=== PATIENT | female | born 1940 | race Caucasian/White ===

== ENCOUNTER 2017-09-05 12:26 | Inpatient (IN) | payer MEDICARE ==
[~2017-09-05] VITALS: Ht 172.7 cm; Wt 72.1 kg
--- NOTE | ~2017-09-05 | EKG ---
[place], [place] ELECTROCARDIOGRAM REPORT NAME: NATANAEL DESAI UNIT #: [id number] ROOM: 427 DOCTOR: RICHARD BARRAGAN MD,RICARDO BIRTHDATE: [birth year] DOS: 09/08/2017 Electrocardiogram done on 09/08/2017, at 10:17 a.m. Sinus tachycardia noted, heart rate 101 beats per minute with a sinus arrhythmia was also noted. Otherwise, the electrocardiogram was noted as normal. RICARDO RAMOS MD CM:EKGRPT:ELECTROCARDIOGRAM REPORT [id number] 1500 RICARDO BARRAGAN MD
--- NOTE | ~2017-09-05 | PR ---
[place], [place] PROGRESS NOTE NAME: NATANAEL DESAI UNIT #: [id number] ROOM: 427 DOCTOR: RICHARD BARRAGAN MD,RICARDO BIRTHDATE: [birth year] DOS: 09/10/2017 SUBJECTIVE: She was noted comfortable at this time. Wheezing were noted decreased. Denies symptoms of chest pain. Coughing has been noted decreased. There were no symptoms of chest pain or any abdominal pain. Bronchoscopy completed yesterday successfully as well. The patient was started on Solu-Medrol yesterday as well because of the acute exacerbation of bronchial asthma. She denies symptoms of hemoptysis. There were symptoms of chest pain. There were symptoms or headache. Denies any symptoms of dizziness. The joint pain from rheumatoid arthritis was noted better with use of the corticosteroids. Remaining systems were reviewed. They were noted all negative. OBJECTIVE: VITAL SIGNS: Showed normal temperature, respiratory rate 18, heart rate 78, blood pressure 132/79. The pulse oxygen saturation on room air was 93% saturation. HEAD, EARS, EYES, NOSE AND THROAT: Examination shows no acute change. NECK: Supple. CARDIOVASCULAR: S1, S2 is audible. LUNGS: The patient was noted without any crackles. The wheezing was noted decreased. ABDOMEN: Soft, nontender. EXTREMITIES: The patient was noted without any acute edema. CENTRAL NERVOUS SYSTEM: The patient noted nonfocal. VISIBLE SKIN: No lesions or rashes. LABORATORY DATA: Culture of the bronchial washing showed clear with normal xochitl. The Gram stain, moderate white blood cell, few gram-positive cocci in pairs and clusters. Sputum culture. The patient noted normal xochitl, final results. Urine strep antigen were noted negative. Respiratory viral panel was noted as negative. IMPRESSION: 1. The patient with acute streptococcal pneumonia. Large consolidation in the right upper lobe. 2. Associated pleural fluid, which were noted small on the right side related to current acute pneumonia. 3. Acute exacerbation of chronic obstructive pulmonary disease. 4. Rheumatoid arthritis and other medical problems. PLAN OF TREATMENT: Continuation of the current therapy at this time except steroids will be decreased to 40 mg daily. Repeat chest x-ray in the morning to assess the progression of pneumonia and pleural fluid. Continue bronchodilator treatment therapy, plan of management and care plan. Usual care. Additional treatment continue to be made for the patient based on progression of the illness. [place], [place] PROGRESS NOTE NAME: NATANAEL DESAI UNIT #: [id number] ROOM: 427 DOCTOR: RICARDO CONRAD MD BIRTHDATE: [birth year] RICARDO RAMOS MD CM:PNTRANS 99 RICARDO BARRAGAN MD 09/10/171958 interface
--- NOTE | ~2017-09-05 | CON ---
[place], [place] REPORT OF CONSULTATION NAME: NATANAEL DESAI UNIT #: [id number] ROOM: 427 DOCTOR: GIGI BARRAZA DPM BIRTHDATE: [birth year] DOS: 09/08/2017 HISTORY OF PRESENT ILLNESS: The patient presents as a 77-year-old female who has had chief complaint of ulcers on the first right toe and outside of the right ankle. PAST MEDICAL HISTORY: Benign positional vertigo, diverticulitis, history of concussion, history of fall, history of shingles, hypothyroid, mitral valve prolapse, monoclonal gammopathy, multiple myeloma, ostarthritis, atrial fibrillation, rheumatoid arthritis, sprain of right ankle. PAST SURGICAL HISTORY: Rotator cuff surgery, hysterectomy, radiofrequency ablation procedure for cardiac arrhythmia, cataract surgery. SOCIAL HISTORY: Denies smoking or illicit drug use. ALLERGIES: Denies. PHYSICAL EXAMINATION: EXTREMITIES: Lower extremity examination: Pedal pulses diminished bilateral. MUSCULOSKELETAL: Within normal limits. There are superficial ulcerations noted to the dorsal medial, right hallux and lateral malleolus, right ankle. They are partial thickness. There are no signs of purulent drainage or foul odor. No signs of drainage or infection. ASSESSMENT: History of peripheral vascular disease; ulcerations, first right toe, lateral right ankle. PLAN: Evaluation and management. Ordered Bactroban and dressing to be applied daily. We will continue to monitor the patient for followup. If she is still in house, I will recheck her on as the ulcerations are stable. GIGI BARRAZA DPM CM:CONSTR:REPORT OF CONSULTATION 1248 09/08/17 1940 interface
--- NOTE | ~2017-09-05 | PR ---
[place], [place] PROGRESS NOTE NAME: NATANAEL DESAI UNIT #: [id number] ROOM: 427 DOCTOR: RICARDO CONRAD MD BIRTHDATE: [birth year] DOS: 09/12/2017 SUBJECTIVE: She has been noted comfortable at this time with continued reduction and improvement and resolution of acute symptoms noted. There was no coughing or chest pain. Denies symptoms of abdominal pain. OBJECTIVE: VITAL SIGNS: For the patient this morning, normal temperature, respiratory rate 18, heart rate 98, blood pressure 132/71. Pulse ox saturation on room air 96% saturation. HEENT: Shows no acute change. NECK: Supple. CARDIOVASCULAR: S1, S2 audible. LUNGS: The patient was noted without any wheezing or crackles. Decreased breath sounds noted on the right side mildly. ABDOMEN: Soft, nontender. Bowel sounds present. EXTREMITIES: Without any acute edema. LABORATORY DATA: No new labs were done today. Acid fast bacillus bronchial washing noted negative with pending culture results. Ultrasound of the chest for the patient performed, the right side with possibility of thoracentesis, noted very small pleural fluid at this time, which would not be noted safe for thoracentesis. IMPRESSION: 1. The patient with acute pneumonia, consider for streptococcal pneumonia with associated pleural fluid that has been improving. 2. Resolving acute exacerbation of bronchial asthma as well. PLAN OF MANAGEMENT: The patient would be considered for possible home discharge on oral antibiotics and tapering dose of prednisone. Outpatient followup is suggested post-discharge in a couple of weeks to reassess in the office with a followup chest x-ray. In case of any increased respiratory symptoms such as shortness of breath, the patient was advised to contact my office for that. [place], [place] PROGRESS NOTE NAME: NATANAEL DESAI UNIT #: [id number] ROOM: 427 DOCTOR: RICARDO CONRAD MD BIRTHDATE: [birth year] RICARDO RAMOS MD CM:PNTRANS [id number] RICARDO BARRAGAN MD 09/13/17 0042 interface
--- NOTE | ~2017-09-05 | CON ---
[place], [place] REPORT OF CONSULTATION NAME: NATANAEL DESAI UNIT #: [id number] ROOM: 427 DOCTOR: KRISTINE POSEY MD BIRTHDATE: [birth year] DOS: 09/11/2017 HISTORY OF PRESENT ILLNESS: The patient is a pleasant 77-year-old woman initially admitted because of worsening productive cough for the past week, bringing out thick green sputum as well as runny nose and Dr. Hernandez told that both lungs were clear at the time, but however, she started to have running fever with temperature of 101.5. Again, she was admitted for further evaluation. She was also found to have decreased reduction in respiratory symptoms. Further workup revealed that she has got extensive infiltration in the right upper lung without any obvious endobronchial lesion. There was also noted ____ lymphadenopathy was noted as well as pleural fluid, large on the right and small on the left side. She underwent bronchoscopy with Dr. Rivas on 08/30/2017, results are pending. She had a CT of the chest done, which showed a solitary right lobe thyroid nodule 2.8 x 2.3 cm as well as additional solid nodule in the left lobe thyroid gland as well as moderate right-sided pleural effusion. She also has a history of multiple myeloma and consulted for further evaluation and management. PAST MEDICAL HISTORY: Significant for benign positional vertigo, diverticulosis, history of concussion fall, shingles, hypothyroid, mitral valve prolapse, multiple myeloma, osteoarthritis, paroxysmal atrial fibrillation and rheumatoid arthritis. PAST SURGICAL HISTORY: Shoulder rotator cuff surgery, history of hysterectomy, history of radiofrequency ablation procedure for cardiac arrhythmia, and history of cardiac surgery. SOCIAL HISTORY: No smoking, drinking, or drug abuse. ALLERGIES: No allergies. MEDICATIONS: Albuterol, apixaban, vitamin D, diltiazem, famotidine, folic acid, furosemide, Plaquenil, leflunomide, levothyroxine, methotrexate, potassium chloride, prednisone, and sotalol. REVIEW OF SYSTEMS: CONSTITUTIONAL: No chills. No fatigue. No fever. No loss of appetite. No night sweats. No weakness. No weight loss. HEENT: No trouble swallowing. No loss of smell. No loss of hearing. No double vision. No pain. No discharge. ENT AND RESPIRATORY: No wheeze. No sore throat. No change in voice. No hearing loss. No nose bleed. No cough. No trouble breathing through nose. No shortness of breath. No coughing up blood. No epistaxis. CARDIOVASCULAR: No chest pain. No dizziness. No irregular heartbeat. No leg edema. No pain in legs while walking. No palpitations. No shortness of breath. DERMATOLOGIC: No acne. No hives. No laceration. No mole. No rash. ENDOCRINE: No cold intolerance. No diabetes. No fatigue. No hot flashes. No polydipsia. No polyuria. No urinating frequently. No weight loss. HEMATOLOGIC AND LYMPH: No fatigue. No easy bruising. [place], [place] REPORT OF CONSULTATION NAME: NATANAEL DESAI UNIT #: [id number] ROOM: [facility] DOCTOR: KRISTINE POSEY MD BIRTHDATE: [birth year] GASTROENTEROLOGIC: No change in bowel habits. No indigestion. No frequent bloating. No vomiting blood. No abdominal cramping. No nausea. No heartburn. No vomiting. No abdominal pain. No dysphagia. No diarrhea. No constipation. No blood in stool. FEMALE REPRODUCTIVE: No vaginal itching. No difficulty urinating. No heavy periods. No dyspareunia. No sexually active. No dysmenorrhea. No pelvic pain. No breast pain. No nipple discharge. No abnormal vaginal discharge. No hot flashes. MUSCULOSKELETAL: No back pain. No muscle pain or weakness. No neck pain. No tingling/numbness. No swelling/bruising. No osteoporosis treatment. OPTHALMOLOGIC: No double vision. No diminished vision. No loss of vision. UROLOGIC: No dysuria. No frequent nighttime urination. No irregular periods. No pain with urination. No difficulty urinating. No blood in urine. No frequent urination. No urinary incontinence. NEUROLOGIC: No loss of sensation in specific body area. No vertigo. No burning pain in feet. No trouble with balance. No trouble with coordination. No loss of consciousness. No loss of feeling/power. No confusion. No headache. No tingling/numbness. PSYCHOLOGIC: No tinnitus. No headaches. No shortness of breath. No weight decrease. No nausea. No vomiting. No abdominal discomfort. No constipation. No diarrhea. No depression. No anxiety. PHYSICAL EXAMINATION: GENERAL: Pleasant woman, in no apparent distress. VITAL SIGNS: Stable. She is afebrile. HEENT: Oral mucosa appears intact. The external ears are normal in appearance. Nares are patent without lesions, exudates, erythema, or inflammation. Tongue is symmetrical. Uvula is midline. NECK AND THYROID: Neck supple without palpable masses. Trachea is midline. No thyromegaly. No carotid bruit or JVD. BREASTS: Normal. Nipples unremarkable. No drainage. No lumps felt on either side. HEART: Normal S1, S2, without significant murmur, rub, or gallop. LUNGS: Clear to auscultation and percussion with good air entry bilaterally. The patient is breathing easily without the use of accessory muscles. Diaphragmatic excursions are intact. ABDOMEN: No costovertebral angle tenderness. Soft. No organomegaly or masses. Nontender. No hernias present. Liver and spleen are not palpable. LYMPHATIC: No adenopathy noted in the cervical, supraclavicular, axillary, or inguinal regions. NEUROLGIC: Nonfocal. Oriented to person, place, and time. MENTAL STATUS: Appropriate for mood and affect. PERIPHERAL PULSES: No varicosities. Femoral and pedal pulses are palpable. EXTREMITIES: Without cyanosis, clubbing, or edema. No gross anomalies. LABORATORY DATA: White count of 10.9, hemoglobin of 11.0, hematocrit 33.1, platelet count of 307. Chemistries: Glucose of 199, BUN of 18, EGFR more than 60, sodium 138, potassium 3.7, chloride 106, bicarbonate 28, total protein 6.3, SGOT 12, SGPT 16, alkaline phosphatase 68. [place], [place] REPORT OF CONSULTATION NAME: NATANAEL DESAI UNIT #: [id number] ROOM: 427 DOCTOR: KRISTINE POSEY MD BIRTHDATE: [birth year] RADIOLOGY: CT of the chest done on 09/08/2017 showed a right upper lobe airspace consolidation with the air bronchograms, mild atelectasis in the right middle lobe and inferior lingula, heterogeneous thyroid nodule, right larger than the left up to 2.8 cm x 2.3 cm, moderate right pleural effusion, moderate size hiatal hernia. ASSESSMENT: 1. Large pleural fluid. 2. Consolidation. 3. Possible sepsis. 4. Pneumonia. 5. Leukocytosis, reactive. 6. Multiple myeloma. 7. Thyroid nodes. PLAN: We will get ultrasound of the thyroid as well as get record from where she was diagnosed with multiple myeloma. In addition, wait for the bronchoscopy reports to come back. She may also need thoracentesis if the pleural fluid is large. Depending on the above, further intervention. I had detailed discussion with the patient about it, seemed to understand. Ample time was given to the patient to ask me questions. We will follow. Thanks for consulting and letting me participate in the care of this interesting patient. KRISTINE POSEY MD CM:CONSTR:REPORT OF CONSULTATION 1523 09/12/17 0116 interface
--- NOTE | ~2017-09-05 | PR ---
[place], [place] PROGRESS NOTE [id number] UN[facility] #: [id number] ROOM: 427 DOCTOR: RICHARD BARRAGAN MD,RICARDO BIRTHDATE: [birth year] DOS: 09/11/2017 SUBJECTIVE: The patient was noted comfortable at this time, resting in the bed. Bronchoscopy completed yesterday without any difficulty. Denies symptoms of chest pain. She was continued on Solu-Medrol. The dose was decreased to 40 mg daily yesterday as well. Coughing has been improving with reduction of the sputum expectoration. There were no symptoms of chest pain. She denies any joint pain. Denies symptoms of nausea, vomiting, diarrhea, and headache. Other systems were reviewed. The patient, they were noted all negative. OBJECTIVE: VITAL SIGNS: For the patient which were recorded, the patient showed the temperature noted as normal, respiratory rate 18, heart rate 93, blood pressure 140/78 and 114/67. The pulse oxygen saturation on room air is 97% saturation. HEENT: No acute change. NECK: Supple. CARDIOVASCULAR: S1, S2 is audible. LUNGS: Noted with decreased breath sounds in the lower portion of the lungs for this patient on the right side. There were no crackles. Wheezing was noted, minimal bilaterally. ABDOMEN: Flat, soft, nontender. EXTREMITIES: Without any edema. MUSCULOSKELETAL: Without any acute deformities. SKIN: No lesions or rashes. GENITOURINARY: Cranial nerves are intact. LABORATORY DATA: Today reviewed. The CBC of this morning, WBC count 10.9, hemoglobin 11, hematocrit 33.1, platelet count was normal at 87% segmented neutrophils. Blood culture 27, no bacterial growth. Final results reported by the laboratory, the bronchial washing culture noted as normal xochitl. The chest x-ray done this morning, the patient was noted partial reduction of the infiltration of the right upper lung for this patient. Pleural fluid was noted to be somewhat increased as compared with the previous chest x-ray and CT scan comparison. IMPRESSION: 1. The patient with atelectasis. The patient acute infiltration. Right upper lung without any endobronchial lesion, status post bronchoscopy. 2. Pleural fluid. The patient associated right side related to acute pneumonia was suspected. 3. History of rheumatoid arthritis. 4. Acute exacerbation of bronchial asthma, resolved. 5. History of allergic rhinitis. PLAN OF MANAGEMENT: Assess the patient tomorrow with the ultrasound for the patient of the right chest. A sufficient amount of fluid noted for this patient. Certainly thoracentesis could be done, other conservative management to be continued. No change in the use of corticosteroids, antibiotic will be [place], [place] PROGRESS NOTE NAME: NATANAEL DESAI UNIT #: [id number] ROOM: 427 DOCTOR: RICHARD BARRAGAN MD,RICARDO BIRTHDATE: [birth year] necessary. The patient otherwise responding clinically to the current treatment. Other supportive plan of therapy and management. The patient is also getting Eliquis. The patient that needs to be placed on hold for this patient for the procedure to be done safely tomorrow for patient for thoracentesis. RICARDO RAMOS MD CM:PNTRANS 1253 [id number] RICARDO BARRAGAN MD 09/11/17 2311 interface
--- NOTE | ~2017-09-05 | PR ---
[place], [place] PROGRESS NOTE NAME: NATANAEL DESAI UNIT #: [id number] ROOM: 427 DOCTOR: KRISTINE POSYE MD BIRTHDATE: [birth year] DOS: 09/12/2017 SUBJECTIVE: The patient is doing much better. She is awake, alert and responsive. REVIEW OF SYSTEMS HEENT: No trouble swallowing. No double vision. No loss of vision. No pain. ENT AND RESPIRATORY: No wheeze. No change in voice. No cough. No shortness of breath. No coughing up blood. No epistaxis. CARDIOLOGIC: No chest pain. No dizziness. No irregular heartbeat. No leg edema. No palpitations. No shortness of breath. HEMATOLOGIC AND LYMPH: No past transfusion. No fatigue. No loss of appetite. No easy bruising. GASTROENEROLOGIC: No change in bowel habits. No vomiting blood. No abdominal cramping. No nausea. No vomiting. No diarrhea. No constipation. No blood in stool. FEMALE REPRODUCTIVE: No dyspareunia. No pelvic pain. MUSCULOSKELETAL: No back pain. No muscle pain or weakness. No tingling/numbness. UROLOGIC: No pain with urination. No difficulty urinating. No frequent urination. NEUROLOGIC: No burning pain in feet. No trouble with coordination. No loss of consciousness. No headache. No tingling/numbness. No memory loss. PHYSICAL EXAMINATION: GENERAL: Pleasant woman, in no apparent distress. VITAL SIGNS: Stable. She is afebrile. HEENT: Normocephalic, atraumatic NECK AND THYROID: Supple. No JVD, thyromegaly, or lymphadenopathy. HEART: Normal S1, S2. Regular rate and rhythm. LUNGS: Clear to auscultation and percussion. ABDOMEN: Soft. Nontender, nondistended. Bowel sounds present. EXTREMITIES: Normal ROM. No clubbing. No edema. LABORATORY DATA: White count 10.9, hemoglobin 11.0, hematocrit 33.1, and platelet count of 307,000. ASSESSMENT: 1. Anemia of neoplastic disorder. 2. Multiple myeloma. PLAN: The patient will be going home today. Follow up as outpatient. She has been getting infection quite often workup ____ once I get record from [facility]. Discussed with the patient in detail. [place], [place] PROGRESS NOTE NAME: NATANAEL DESAI UNIT #: [id number] ROOM: 427 DOCTOR: KRISTINE POSEY MD BIRTHDATE: [birth year] KRISTINE POSEY MD CM:PNFELICIA 1021 KRISTINE POSEY MD 09/13/17 003 interface
--- NOTE | ~2017-09-05 | CON ---
[place], [place] REPORT OF CONSULTATION NAME: NATANAEL DESAI UNIT #: [id number] ROOM: 427 DOCTOR: GIGI BARRAZA DPM BIRTHDATE: [birth year] DOS: HISTORY OF PRESENT ILLNESS: The patient presents as a 77-year-old female with chief complaint of ulcerations to the outside of the right ankle and right great toe. PAST MEDICAL HISTORY: Benign positional vertigo, diverticulitis, history of concussion, history of fall, history of shingles, hypothyroid, mitral valve prolapse, monoclonal gammopathy, multiple myeloma, osteoarthritis, atrial fibrillation, rheumatoid arthritis, sprain of right ankle. PAST SURGICAL HISTORY: History of rotator cuff surgery, hysterectomy, radiofrequency ablation procedure for cardiac arrhythmia, cataract surgery. SOCIAL HISTORY: Denies illicit drug use or smoking. ALLERGIES: Denied. PHYSICAL EXAMINATION: LOWER EXTREMITY EXAMINATION: Pedal pulses diminished bilateral. Decreased hair growth. Decreased skin temperature. MUSCULOSKELETAL: Within normal limits. Ulcerations noted to the dorsal medial right hallux and lateral right malleolus are partial thickness. No signs of drainage, cellulitis or deep sinus tract. No signs of abscess. ASSESSMENT: Peripheral vascular disease; ulcerations first right toe, lateral right ankle. PLAN: Evaluation and management. I ordered Bactroban dressing to be applied daily. The ulcerations are stable at this time and I will recheck the patient again on if she is still inhouse. I have ordered radiographs of the right foot and ankle to rule out underlying osseous erosion to the ulcerative sites. Thank you for kind consultation. GIGI BARRAZA DPM CM:CONSTR:REPORT OF CONSULTATION 1251 09/08/17 1946 interface
--- NOTE | ~2017-09-05 | PR ---
[place], [place] PROGRESS NOTE NAME: [facility]EL DESAI [id number] UNIT #: [id number] ROOM: 427 DOCTOR: GIGI BARRAZA DPM BIRTHDATE: [birth year] DOS: 09/10/2017 SUBJECTIVE: The patient was seen for followup of ulcerations to the first right toe and lateral malleolus of the right ankle. OBJECTIVE: Clinically, the ulcerations are improving, are only partial thickness in nature. No signs of infection or sinus tract. The patient's ankle and foot radiographs were unremarkable. No signs of osseous erosion. ASSESSMENT: Ulcerations to the right hallux and lateral right ankle. PLAN: Evaluation and management. Continue local wound care. The patient is apparently going home tomorrow and she will follow at the office on an outpatient basis. GIGI BARRAZA DPM CM:PNTRANS 1303 [id number] GIGI BARRAZA DPM 09/10/17 1349 interface
--- NOTE | ~2017-09-05 | CON ---
[place], [place] REPORT OF CONSULTATION NAME: NATANAEL DESAI UNIT #: [id number] ROOM: 427 DOCTOR: RICHARD BARRAGAN MDRICARDO BIRTHDATE: [birth year] DOS: 09/07/2017 PULMONARY CONSULTATION, EVALUATION AND MANAGEMENT REASON FOR CONSULTATION: To assess the patient for acute pneumonia and other respiratory symptoms. HISTORY OF PRESENT ILLNESS: This is a 77-year-old white female known to me with past history of mild intermittent bronchial asthma and allergic rhinitis. The patient has been admitted to the hospital as she has been noted with worsening of the respiratory symptom that has been ongoing for the past few days. She started with symptoms of sinus congestion with postnasal drainage about a week ago. The patient reported improvement in the symptoms for a few days and later noted with severe increase in respiratory symptoms later on. The symptoms were noted with fever and chills at home, coughing with purulent sputum expectoration green to yellowish in color several times. She was also noted with generalized weakness and fatigue. Denies symptoms of chest pain. Postnasal drainage and nasal congestion noted partially decreased, but not completely resolved. She came into the Emergency Room and has been admitted to the hospital for further medical management of the ongoing acute respiratory complaints. REVIEW OF SYSTEMS: CONSTITUTIONAL: She does complain of fatigue and tiredness without any symptoms of fever or chills at this time. The symptoms were noted on admission. EYES: Denies any burning, redness, or tenderness. EARS, NOSE AND THROAT: Denies sore throat, hoarseness, otalgia, postnasal drainage or epistaxis. CARDIOVASCULAR: Denies angina pain, edema, or pain of the lower extremities. GASTROINTESTINAL: Denies dysphagia, nausea, vomiting, diarrhea, abdominal pain, hematemesis, melena, or hematochezia. SKIN: Denies any lesions or rashes. CENTRAL NERVOUS SYSTEM: Denies dizziness, headache, diplopia or syncopal episodes. The remaining systems were reviewed with the patient. They were noted all negative. PAST MEDICAL HISTORY: The patient was known with history of: 1. Mild intermittent bronchial asthma. 2. Allergic rhinitis. 3. History of mitral valve prolapse. 4. Migraine headache. 5. Polymyalgia rheumatica, on prednisone treatment. 6. Multiple myeloma, diagnosed in 2016. 7. History of hypothyroidism. 8. History of rheumatoid arthritis. 9. History of paroxysmal atrial fibrillation, on anticoagulation. PAST SURGICAL HISTORY: Noted with: 1. Right rotator cuff surgery. [place], [place] REPORT OF CONSULTATION NAME: NATANAEL DESAI UNIT #: [id number] ROOM: [facility] DOCTOR: RICHARD BARRAGAN MD,RICARDO BIRTHDATE: [birth year] 2. Complete hysterectomy. 3. Laparoscopy that was done 30 years ago. 4. Cataract extraction and lens implantation. SOCIAL HISTORY: The patient is a retired RN. Denies any history of alcohol use or illicit drug use. Tobacco use was noted only 5 years a pack of cigarettes per day that was discontinued 45 years ago. Denies any occupation-related pulmonary exposure history. She is and lives at home. FAMILY HISTORY: The patient's father at the age of 5050 years old with complications of the Friedreich's ataxia. The mother at the age of 5858 years old with complications of parkinsonism. MEDICATIONS: For the patient, which were listed at time of admission in the medication reconciliation were noted as use of Eliquis, Ventolin HFA inhaler p.r.n. use, Flexeril, vitamin D, famotidine, Cartia XT 120 mg, Flonase, folic acid, Lasix, Plaquenil, leflunomide, levothyroxine, methotrexate, nadolol, potassium chloride, prednisone 5 mg, Stadol and valacyclovir. DRUG ALLERGY HISTORY: Noted as no known drug allergies. PHYSICAL EXAMINATION: GENERAL: This is a 77-year-old female who has been currently noted to be awake and alert without any distress at the time of the current assessment. The patient's height was recorded as 5 feet 8 inches, weight 259 pounds. VITAL SIGNS: For the patient showed temperature on admission on 09/05 noted 102.3 degrees Fahrenheit, later low-grade fever to 100 degrees Fahrenheit noted in the last 24 hours, respiratory rate range between 20-24, heart rate 99-113, blood pressure 137/77-124/55. Pulse oxygen saturation on room air was noted 90-93%. HEENT: Head is atraumatic. Eyes, nonicterus. NECK: Supple. CARDIOVASCULAR: S1, S2 audible. LUNGS: Noted with moderate decreased breath sounds in the lungs bilaterally based on the right than the left side. There was no wheezing. ABDOMEN: Flat, soft, nontender. Bowel sounds present. EXTREMITIES: The patient was noted without any edema, clubbing or cyanosis. CENTRAL NERVOUS SYSTEM: Cranial nerves 2-12 intact. MUSCULOSKELETAL: Without any acute deformities. CENTRAL NERVOUS SYSTEM: Also had no focal deficit. VISIBLE SKIN: No lesions or rashes. LABORATORY DATA: The CBC that was done on admission 09/05 - WBC count 17.5, hemoglobin and hematocrit normal, platelet count was normal, 95% segmented neutrophils at that time noted. CMP on admission on 09/05 - essentially noted completely normal CMP including BUN and creatinine. Albumin 2.7 noted at that time. The CBC yesterday - WBC count 13.7, hemoglobin 11.1, hematocrit 33.0, platelet count was normal. CMP this morning noted normal BUN and creatinine, potassium 3.4. Blood culture, which was done on 09/05/2017 was noted without any abnormal bacterial growth at this time. Final culture results were pending. [place], [place] REPORT OF CONSULTATION NAME: NATANAEL DESAI UNIT #: [id number] ROOM: 427 DOCTOR: RICHARD BARRAGAN MD,[facility] BIRTHDATE: [birth year] RADIOLOGY DATA REVIEW: The chest x-ray that was done on 09/05/2017 shows area of consolidation and infiltration noted in the right upper lobe. Some volume loss was also considered. The chest x-ray was done this morning two-view was reviewed as well. Small pleural fluid noted with persistent large area of consolidation with some volume loss and prominent right hilar area. IMPRESSION: 1. The patient who had been currently admitted to the hospital noted with progressive acute respiratory symptoms started with upper respiratory tract infection, currently noted large area of consolidation, volume loss, rule out endobronchial obstruction in the right upper bronchial opening. 2. History of bronchial asthma and does have acute exacerbation. 3. Severe leukocytosis secondary to acute active infection. The differential for this patient's current pneumonia would be considered as a streptococcal pneumonia with Staphylococcus aureus as well. 4. The patient with generalized weakness and fatigue related to current symptoms including fever or chills. 5. Past known history of multiple myelomas. 6. Atrial fibrillation with history as well without any evidence of acute significant tachycardia except noted on admission, seemed to be resolved. PLAN OF MANAGEMENT: Agree with the use of the Levaquin. The urine for Legionella antigen and strep antigen. CT scan of the chest will be needed for the patient with IV contrast for further assessment and also consider fiberoptic bronchoscopy to exclude endobronchial obstruction as well. The current home medication will be continued as previously ongoing. Collect the sputum for Gram stain and culture as well. Additional treatment changes need to be made for the patient based on the progression of the illness. Close monitoring of the respiratory status will be continued. Also, obtain the respiratory viral panel for this patient as well as the influenza A and B nasal washing antigens to be done as well. Supportive care, other plan of management as well. Additional treatment changes need to be done based on progression of the illness. Small pleural fluid noted related to acute pneumonia visible on the chest x-ray. CT scan will clearly define the amount of the pleural fluid if it is present. Thank you for allowing me to participate in the care of this patient. RICARDO RAMOS MD CM:CONSTR:REPORT OF CONSULTATION 1548 09/08/17 0256 interface
--- NOTE | ~2017-09-05 | PR ---
[place], [place] PROGRESS NOTE [id number] UNIT #: [id number] ROOM: 427 DOCTOR: RICHARD BARRAGAN MD,RICARDO BIRTHDATE: [birth year] DOS: 09/08/2017 SUBJECTIVE: The patient was noted with reduction in respiratory symptoms. The cough has been noted decreased. The fever has been noted decreased. There were no symptoms of hemoptysis. She was continued on intravenous antibiotics as well. Denies symptoms of nausea, vomiting, headache, diplopia, or any abnormal skin changes. Remaining review of systems of the patient were noted as negative. OBJECTIVE: VITAL SIGNS: For the patient, which have been recorded showed the temperature 100 degrees Fahrenheit, normal temperature, respiratory rate 18-19, pulse 90-82, blood pressure 124/70-130/59, pulse oxygen saturation with the patient on room air was 95% saturation. HEENT: Examination shows no acute change. Head was atraumatic. NECK: Supple. CARDIOVASCULAR: S1, S2 audible. LUNGS: Decreased breath sounds noted on the right lung. There were no crackles. There was no wheezing. ABDOMEN: Soft, nontender. LABORATORY DATA AND IMAGING STUDIES: Influenza A and B, nasal washing antigen negative. The chest x-ray of the patient that was done yesterday shows a large area of consolidation and volume loss on the right side. CBC this morning, WBC count normal, hemoglobin 10.4, hematocrit 31.0, platelet count was normal. CMP of the patient, BUN normal, creatinine normal, potassium is noted decreased at 2.9. Albumin 2.1. CT scan of the chest was completed that was reviewed personally. The radiology interpretation was pending. Small pleural fluid was noted on the right side. Extensive large area of consolidation noted involving the right upper lung, with associated lymphadenopathy was also suspected in the right hilar area. Small left pleural fluid was also seen. Remaining areas of the lungs of the patient were noted free of any acute pulmonary infiltration. IMPRESSION: 1. The patient who has been currently noted with extensive infiltration in the right upper lung without any obvious endobronchial lesion at this time, associated lymphadenopathy was noted as well. Pleural fluid noted, larger on the right and smaller on the left side as well. 2. The patient with history of bronchial asthma and allergic rhinitis. 3. Hypokalemia. PLAN OF MANAGEMENT: Continue current antibiotic of the patient at this time. Fiberoptic bronchoscopy planned to be done tomorrow morning for assessment of endobronchial tree for this patient as well. At this time, biopsy would not be needed for the patient. The abnormality needs to be closely monitored as well. The patient has been getting her treatment of the rheumatoid arthritis that will be continued without any changes. Other additional treatment changes to be made for the patient based on the progression of the illness. Usual care. [place], [place] PROGRESS NOTE NAME: NATANAEL DESAI UNIT #: [id number] ROOM: [facility] DOCTOR: RICARDO CONRAD MD BIRTHDATE: [birth year] RICARDO RAMOS MD CM:PNTRANS [id number] RICARDO BARRAGAN MD 09/08/17 4356 interface
--- NOTE | ~2017-09-05 | PROC NOTE ---
[place], [place] PROCEDURE NOTE NAME: NATANAEL DESAI UNIT #: [id number] ROOM: 427 DOCTOR: RICHARD BARRAGAN MD,RICARDO BIRTHDATE: [birth year] DOS: 09/09/2017 BRONCHOSCOPY NOTE PREOPERATIVE DIAGNOSIS: Volume loss with large right upper lobe consolidation. POSTOPERATIVE DIAGNOSES: No endobronchial obstructive lesion. Significant friability of the mucosa with a large amount of mucopurulent material removed from the endobronchial tree of the right upper lobe. PROCEDURE DESCRIPTION: Informed consent obtained for the patient. She was brought to the OR and placed in supine position. Conscious sedation was administered by the Anesthesia Department. After achieving appropriate sedation, airway introduced into the mouth. Bronchoscope advanced to the airway into laryngeal area. Epiglottis and vocal cords were seen. Bronchoscope advanced to vocal cords and tracheal lumen. Tracheal lumen of the patient was identified. It was noted with a small amount of purulent secretion suctioned out to the mason level. Right upper lung and bronchial opening of the patient was noted with a significant amount of purulent secretion in the right upper lobe, which were all cleared off with the help of normal saline wash. The procedure was well tolerated by the patient without any difficulty. No complications noted post-procedure. The postoperative findings were discussed with the patient's sister in detail after the completion of the procedure. No change in the treatment at this time immediately will be needed. RICARDO RAMOS MD CM:PROCNOTE:PROCEDURE NOTE [phone] RICARDO BARRAGAN MD
--- NOTE | ~2017-09-05 | PR ---
[place], [place] PROGRESS NOTE NAME: NATANAEL DESAI UNIT #: [id number] ROOM: 427 DOCTOR: SONDRA BEE DO BIRTHDATE: [birth year] DOS: 09/09/2017 SUBJECTIVE: Patient is seen and examined at bedside. Before the bronchoscopy this morning, the patient was sitting upright, continued to complain of shortness of breath and cough. No improvement of symptoms since admission. The patient had no new complaints at that time. OBJECTIVE: VITAL SIGNS: Temperature 98.7, pulse 95, respirations 15, blood pressure 137/60, pulse ox 92% on room air. LABORATORY DATA: CBC and BMP were reviewed; no gross acute change from prior labs. Blood cultures remain negative. Sputum cultures remain negative. Bronchoscopy washings were sent this morning from bronchoscopy for review. Flu swab and urine culture and, repeat flu swab were all negative. IMAGING: Yesterday, foot x-ray showed calcaneal spurs. X-ray showed normal right ankle. Chest CT yesterday showed right upper lobe airspace consolidation with air bronchograms concerning for pneumonia with mild atelectasis in the medial right middle lobe and inferior lingula; heterogenous thyroid nodules, right larger than left; moderate pleural effusions and small left pleural effusion; and a moderate-sized hiatal hernia. PHYSICAL EXAMINATION GENERAL: The patient is awake, alert and oriented, in no acute distress. HEENT: Eyes are clear, no injection. Nares are patent. Mucous membranes are moist. NECK: Supple, nontender. CARDIOVASCULAR: Regular rate and rhythm, no murmurs, gallops or rubs, S1 and S2 noted. PULMONARY: Wheezes and diminished breath sounds in the right upper lobe. No rales appreciated. ABDOMEN: Soft, nontender with positive bowel sounds. IMPRESSION: 1. Extensive infiltration of the right upper lung. 2. Pneumonia. 3. Bronchial asthma with allergic rhinitis. 4. Hypokalemia. 5. Thyroid nodules. TREATMENT CARE AND PLAN: The patient was bronch'd this morning. The patient tolerated the procedure well. Washings from the bronchoscopy were sent for culture. Continue with current antibiotics, bronchodilators and steroids. We will adjust the antibiotics based on the culture results. Anticipate patient will continue to improve clinically and will be approaching discharge in the next 24-48 hours. No other change in current plans at this time. [place], [place] PROGRESS NOTE NAME: NATANAEL DESAI UNIT #: [id number] ROOM: 427 DOCTOR: SONDRA BEE DO BIRTHDATE: [birth year] SONDRA BEE DO RICARDO RAMOS MD CM:ARIC [id number] SONDRA BEE DO 09/09/17 233 interface
--- NOTE | ~2017-09-05 | PR ---
[place], [place] PROGRESS NOTE NAME: NATANAEL DESAI UNIT #: [id number] ROOM: 427 DOCTOR: RICHARD BARRAGAN MD,RICARDO BIRTHDATE: [birth year] DOS: 09/09/2017 PULMONARY ADDENDUM NOTE SUBJECTIVE: The patient was seen and examined on 09/09/2017 independently with [id number] encounter, history was confirmed. Physical examination was performed. All the labs were reviewed. Assessment and management for today's note were personally made as well. The patient is currently noted n.p.o. past midnight for bronchoscopy. Note done by the medical office specialist was approved as well. She has not been noted with symptoms of chest pain. Coughing has been noted. She denies symptoms of hemoptysis. Denies any symptoms of abdominal pain, nausea, vomiting, any abnormality of the skin or headache. The remaining systems otherwise were reviewed. They were noted all negative. OBJECTIVE: VITAL SIGNS: Vital signs for the patient were noted. The patient has a normal temperature. The patient has a respiratory rate of 19-20, heart rate 96, blood pressure 134/68, pulse oxygen saturation 93% saturation at rest on room air was noted. HEENT: Examination shows no acute change. NECK: Supple. CARDIOVASCULAR: S1, S2 audible. LUNGS: Shows moderate diffuse expiratory wheezing in the lungs, a new finding. There were no crackles heard. ABDOMEN: Flat, soft, nontender. EXTREMITIES: Without any acute edema. SKIN: Visible skin, no lesions or rashes. MUSCULOSKELETAL: No acute deformities. LABORATORY DATA: CBC of the patient that was done this morning shows hemoglobin 10.9, hematocrit 33.6, WBC count normal, platelet count was normal. CMP of the patient on 09/09/2017, normal BUN and creatinine. Albumin of 2.3. The culture of the sputum preliminary noted normal for Gram stain of yesterday. Many white blood cells, moderate epithelial cells, moderate gram-positive cocci in pairs and chains. IMPRESSION: 1. The patient with acute large pneumonia with some volume loss noted in the right upper lobe. Considered streptococcal pneumonia. 2. The patient with acute exacerbation of bronchial asthma noted with expiratory wheezing on today's examination, rheumatoid arthritis, chronic prednisone dependency and other medical illnesses. PLAN OF MANAGEMENT: The patient will be started on Solu-Medrol 40 mg IV b.i.d. Proceed with the bronchoscopy as planned. Continuation of bronchodilator for this patient as well and it should be given every 4 hours. No changes in the antibiotics at this time will be necessary. Other supportive plan of management if necessary will be changed based on the progression of the illness. [place], [place] PROGRESS NOTE NAME: NATANAEL DESAI UNIT #: [id number] ROOM: 427 DOCTOR: RICARDO CONRAD MD BIRTHDATE: [birth year] RICARDO RAMOS MD CM:PNTRANS [phone] RICARDO BARRAGAN MD 09/10/17 0120 interface
[~2017-09-05 12:26] MED LIST: ALBUTEROL0.09 MG/Ac; FLONASE0.05 MG/AC; FOLIC ACID; HYDROCHLOROTHIA25 MG; LEVOXYL0.05 MG; METHOTREXATE2.5 MG; NADOLOL20 MG; PEPCID20 MG; PREDNISONE5 MG PO; VITAMIN D1000 IU
[2017-09-05 12:27] VITALS: BP 132/72
[2017-09-05] MEDS ORDERED: FUROSEMIDE40 MG PO (12:27)
[2017-09-05] MEDS ORDERED: POTASSIUM CHLO20 ME4 PO (12:28)
[2017-09-05] MEDS ORDERED: FAMOTIDINE20 M1 PO (12:28)
[2017-09-05] MEDS ORDERED: BETAPACE80 MG PO (12:28)
[2017-09-05] MEDS ORDERED: CARTIA XT120 MG PO (12:28)
[2017-09-05] MEDS ORDERED: LEFLUNOMIDE10 M1 PO (12:28)
[2017-09-05] MEDS ORDERED: CYCLOBENZAPRINE5 M3 PO (12:28)
[2017-09-05] MEDS ORDERED: HYDROXYCHLOROQ200 M1 PO (12:28)
[2017-09-05] MEDS ORDERED: ELIQUIS5 M1 PO (12:29)
[2017-09-05 13:13] LABS: HEMATOCRIT 37.8 % (37.0-47.0); HEMOGLOBIN 12.5 g/dl (12.0-16.0); MEAN CELL VOLUME 98.4 fl (81.0-99.0); MEAN CORPUSCULAR HGB 32.6 pg (27.0-31.0); MEAN CORPUSCULAR HGB CONC 33.1 g/dl (33.0-37.0); MEAN PLATELET VOLUME 9.4 fl (9.6-12.3); PLATELET COUNT AUTOMATED 231 10*3/uL (130-400); RED BLOOD COUNT 3.84 10*6/uL (4.10-5.10); RED CELL DISTRI WIDTH 12.8 % (0-14.5); WHITE BLOOD COUNT 17.5 10*3/uL (4.8-10.8)
[2017-09-05 13:20] LABS: BILIRUBIN NEGATIVE (NEGATIVE); BLOOD NEGATIVE (NEGATIVE); CLARITY CLEAR (CLEAR); COLOR YELLOW (YELLOW); GLUCOSE NEGATIVE (NEGATIVE); KETONE NEGATIVE (NEGATIVE); LEUKO ESTERASE TRACE (NEGATIVE); NITRITE NEGATIVE (NEGATIVE); UROBILINOGEN 0.2 E.U./dl (0.2-1.0)
[2017-09-05 13:24] LABS: ACT PARTIAL THROMBO TIME 25.6 SECONDS (20.8-31.5); INTERNATIONAL NORM RATIO 1.1 (2.0-3.5)
[2017-09-05 13:28] LABS: BACTERIA 1+; WBC 31-40 wbc/hpf (0-5)
[2017-09-05 13:29] LABS: ALBUMIN 2.7 gm/dl (3.1-4.5); ALKALINE PHOSPHATASE 74 U/L (45-117); BUN 17 mg/dl (7-24); CHLORIDE 103 mmol/L (98-107); CREATININE 0.81 mg/dL (0.55-1.02); LIPASE 68 U/L (73-393); POTASSIUM 3.7 mmol/L (3.5-5.1); SGOT/AST 15 IU/L (3-35); SGPT/ALT 17 U/L (12-78); SODIUM 139 mmol/L (136-145); TOTAL PROTEIN 6.6 gm/dL (6.4-8.2)
[2017-09-05 13:31] LABS: TROPONIN I < 0.015 ng/ml (<0.045)
[2017-09-05 13:35] LABS: TOTAL CELLS COUNTED 100 #CELLS
[2017-09-05 13:36] LABS: PLATELET SUFFICIENCY NORMAL (NORMAL)
[2017-09-05 14:44] VITALS: BP 126/53
[2017-09-05 15:00] VITALS: BP 151/82
[2017-09-05] MEDS ORDERED: PLAQUENIL200 MG PO (15:46)
[2017-09-05] MEDS ORDERED: VALACYCLOVIR500 M1 PO (15:48)
[2017-09-05] MEDS ORDERED: ARAVA10 M1 PO (15:53)
[2017-09-05 16:00] VITALS: BP 116/45
[2017-09-05 20:00] VITALS: BP 118/54
[2017-09-06] VITALS: BP 90/50
[2017-09-06 07:19] LABS: HEMOGLOBIN 11.1 g/dl (12.0-16.0); MEAN CELL VOLUME 98.5 fl (81.0-99.0); MEAN CORPUSCULAR HGB 33.1 pg (27.0-31.0); MEAN CORPUSCULAR HGB CONC 33.6 g/dl (33.0-37.0); MEAN PLATELET VOLUME 9.8 fl (9.6-12.3); PLATELET COUNT AUTOMATED 202 10*3/uL (130-400); RED BLOOD COUNT 3.35 10*6/uL (4.10-5.10); RED CELL DISTRI WIDTH 12.8 % (0-14.5); WHITE BLOOD COUNT 13.7 10*3/uL (4.8-10.8)
[2017-09-06 07:48] LABS: ALBUMIN 2.2 gm/dl (3.1-4.5); BUN 14 mg/dl (7-24); CHLORIDE 108 mmol/L (98-107); PLATELET SUFFICIENCY NORMAL (NORMAL); POTASSIUM 3.4 mmol/L (3.5-5.1); SODIUM 142 mmol/L (136-145); TOTAL CELLS COUNTED 100 #CELLS
[2017-09-06 07:49] LABS: BURR CELLS FEW; TOXIC GRANULATION SLIGHT
[2017-09-06 07:56] LABS: ALKALINE PHOSPHATASE 68 U/L (45-117); CHOLESTEROL 90 mg/dL (<200); CREATININE 0.66 mg/dL (0.55-1.02); HDL CHOLESTEROL 36 mg/dl (40-60); LDL CHOLESTEROL 38 mg/dL (9-159); PHOSPHOROUS 2.4 mg/dL (2.5-4.9); SGOT/AST 11 IU/L (3-35); SGPT/ALT 13 U/L (12-78); THYROID STIM HORMONE (HS) 0.867 uIU/ml (0.358-4.75); TOTAL PROTEIN 5.5 gm/dL (6.4-8.2); TRIGLYCERIDES 80 mg/dl (<150); VLDL CHOLESTEROL 16 mg/dL (6-40)
[2017-09-06 08:00] VITALS: BP 105/50
[2017-09-06 09:07] LABS: VITAMIN D, 25-HYDROXY 40.5 ng/mL (30-100)
[2017-09-06 12:00] VITALS: BP 111/58
[2017-09-06 16:00] VITALS: BP 124/55
[2017-09-06 20:00] VITALS: BP 116/45
[2017-09-07] VITALS: BP 112/52
[2017-09-07 08:00] VITALS: BP 137/77
[2017-09-07 12:00] VITALS: BP 113/54
[2017-09-07 16:00] VITALS: BP 103/45
[2017-09-07 20:00] VITALS: BP 110/59
[2017-09-08] VITALS: BP 115/56
[2017-09-08 06:59] LABS: BASO % 0.4 % (0.0-1.0); EOS # 0.1 10*3/uL (0.0-0.4); EOS % 1.5 % (1.0-4.0); HEMOGLOBIN 10.4 g/dl (12.0-16.0); LYMPH # 0.6 10*3/uL (1.3-4.4); LYMPH % 8.4 % (27.0-41.0); MEAN CELL VOLUME 98.1 fl (81.0-99.0); MEAN CORPUSCULAR HGB 32.9 pg (27.0-31.0); MEAN CORPUSCULAR HGB CONC 33.5 g/dl (33.0-37.0); MEAN PLATELET VOLUME 9.9 fl (9.6-12.3); MONO # 0.5 10*3/uL (0.1-1.0); MONO % 6.5 % (3.0-9.0); NEUT # 5.9 10*3/uL (2.3-7.9); NEUT % 82.6 % (47.0-73.0); PLATELET COUNT AUTOMATED 221 10*3/uL (130-400); RED BLOOD COUNT 3.16 10*6/uL (4.10-5.10); RED CELL DISTRI WIDTH 12.9 % (0-14.5); WHITE BLOOD COUNT 7.1 10*3/uL (4.8-10.8)
[2017-09-08 07:37] LABS: ALBUMIN 2.1 gm/dl (3.1-4.5); BUN 6 mg/dl (7-24); CHLORIDE 108 mmol/L (98-107); POTASSIUM 2.9 mmol/L (3.5-5.1); SGOT/AST 17 IU/L (3-35); SGPT/ALT 13 U/L (12-78); SODIUM 141 mmol/L (136-145)
[2017-09-08 07:38] LABS: ALKALINE PHOSPHATASE 67 U/L (45-117); TOTAL PROTEIN 5.9 gm/dL (6.4-8.2)
[2017-09-08 08:00] VITALS: BP 130/59
[2017-09-08 12:00] VITALS: BP 124/72
[2017-09-08 16:00] VITALS: BP 115/56
[2017-09-08 20:00] VITALS: BP 122/69
[2017-09-09] VITALS (9 sets, daily range): BP systolic 104–146; BP diastolic 51–76
[2017-09-09 11:38] LABS: BASO % 0.5 % (0.0-1.0); EOS # 0.2 10*3/uL (0.0-0.4); EOS % 2.5 % (1.0-4.0); HEMATOCRIT 33.6 % (37.0-47.0); HEMOGLOBIN 10.9 g/dl (12.0-16.0); LYMPH # 0.7 10*3/uL (1.3-4.4); LYMPH % 8.2 % (27.0-41.0); MEAN CELL VOLUME 98.2 fl (81.0-99.0); MEAN CORPUSCULAR HGB 31.9 pg (27.0-31.0); MEAN CORPUSCULAR HGB CONC 32.4 g/dl (33.0-37.0); MEAN PLATELET VOLUME 9.2 fl (9.6-12.3); MONO # 0.7 10*3/uL (0.1-1.0); NEUT # 6.3 10*3/uL (2.3-7.9); PLATELET COUNT AUTOMATED 253 10*3/uL (130-400); RED BLOOD COUNT 3.42 10*6/uL (4.10-5.10); RED CELL DISTRI WIDTH 12.8 % (0-14.5); WHITE BLOOD COUNT 7.9 10*3/uL (4.8-10.8)
[2017-09-09 12:09] LABS: ALBUMIN 2.3 gm/dl (3.1-4.5); ALKALINE PHOSPHATASE 73 U/L (45-117); BUN 5 mg/dl (7-24); CHLORIDE 106 mmol/L (98-107); CREATININE 0.55 mg/dL (0.55-1.02); POTASSIUM 3.8 mmol/L (3.5-5.1); SGOT/AST 15 IU/L (3-35); SGPT/ALT 16 U/L (12-78); SODIUM 142 mmol/L (136-145); TOTAL PROTEIN 6.2 gm/dL (6.4-8.2)
[2017-09-10 00:45] VITALS: BP 112/55
[2017-09-10 01:06] LABS: ADENOVIRUS Negative (Negative); INFLUENZA A Negative (Negative); INFLUENZA B Negative (Negative); METAPNEUMOVIRUS Negative (Negative); PARAINFLUENZA 1 Negative (Negative); PARAINFLUENZA 2 Negative (Negative); PARAINFLUENZA 3 Negative (Negative); RHINOVIRUS Negative (Negative); RSV A Negative (Negative); RSV B Negative (Negative)
[2017-09-10 08:00] VITALS: BP 132/79
[2017-09-10 12:00] VITALS: BP 117/67
[2017-09-10 15:06] LABS: ACID FAST SMEAR Negative (.); ACID FAST SPEC PROCESSING Concentration (.)
[2017-09-10 16:00] VITALS: BP 113/72
[2017-09-10 20:05] VITALS: BP 125/67
[2017-09-11] VITALS: BP 111/44
[2017-09-11 08:00] VITALS: BP 114/67
[2017-09-11 11:05] LABS: HEMATOCRIT 33.1 % (37.0-47.0); MEAN CELL VOLUME 96.8 fl (81.0-99.0); MEAN CORPUSCULAR HGB 32.2 pg (27.0-31.0); MEAN CORPUSCULAR HGB CONC 33.2 g/dl (33.0-37.0); MEAN PLATELET VOLUME 9.4 fl (9.6-12.3); PLATELET COUNT AUTOMATED 307 10*3/uL (130-400); RED BLOOD COUNT 3.42 10*6/uL (4.10-5.10); RED CELL DISTRI WIDTH 12.9 % (0-14.5); WHITE BLOOD COUNT 10.9 10*3/uL (4.8-10.8)
[2017-09-11 11:33] LABS: PLATELET SUFFICIENCY NORMAL (NORMAL); TOTAL CELLS COUNTED 100 #CELLS
[2017-09-11 11:39] LABS: ALBUMIN 2.4 gm/dl (3.1-4.5); CHLORIDE 106 mmol/L (98-107); POTASSIUM 3.7 mmol/L (3.5-5.1); SODIUM 138 mmol/L (136-145)
[2017-09-11 11:51] LABS: ALKALINE PHOSPHATASE 68 U/L (45-117); CREATININE 0.83 mg/dL (0.55-1.02); FREE T4 1.04 ng/dl (0.76-1.46); SGOT/AST 12 IU/L (3-35); SGPT/ALT 16 U/L (12-78); THYROID STIM HORMONE (HS) 0.271 uIU/ml (0.358-4.75); TOTAL PROTEIN 6.3 gm/dL (6.4-8.2)
[2017-09-11 12:00] VITALS: BP 114/78
[2017-09-11 12:01] LABS: BUN 18 mg/dl (7-24)
[2017-09-11 16:00] VITALS: BP 126/76
[2017-09-11 20:00] VITALS: BP 131/69
[2017-09-12] VITALS: BP 134/75
[2017-09-12 08:00] VITALS: BP 120/65
[2017-09-12 12:00] VITALS: BP 132/71
[2017-09-12] MEDS ORDERED: PREDNISONE10 MG PO (12:56)
[2017-09-12] MEDS ORDERED: LEVAQUIN750 M1 PO (12:56)
== END 2017-09-12 13:33 | disposition home or self-care (01) | DRG 853 ==
LOC: ED 12:26 → EDHOLD 14:10 → 4E 14:10
PROVIDERS: Emergency Medicine; Internal Medicine; Internal Medicine Critical Care Medicine; Registered Nurse; Student in an Organized Health Care Education/Training Program
PROC: 0B9G8ZZ Drainage of Left Upper Lung Lobe, Via Natural or Artificial Opening Endoscopic (ICD-10-PCS; principal; 2017-09-09)
DX: A41.9 Sepsis, unspecified organism (principal); J15.6 Pneumonia due to other Gram-negative bacteria; C90.00 Multiple myeloma not having achieved remission; D68.69 Other thrombophilia; I48.0 Paroxysmal atrial fibrillation; E44.1 Mild protein-calorie malnutrition; L97.319 Non-pressure chronic ulcer of right ankle with unspecified severity; J44.0 Chronic obstructive pulmonary disease with (acute) lower respiratory infection; J44.1 Chronic obstructive pulmonary disease with (acute) exacerbation; J45.901 Unspecified asthma with (acute) exacerbation; M06.9 Rheumatoid arthritis, unspecified; E04.1 Nontoxic single thyroid nodule; L97.519 Non-pressure chronic ulcer of other part of right foot with unspecified severity; Z96.1 Presence of intraocular lens; I73.9 Peripheral vascular disease, unspecified; E03.9 Hypothyroidism, unspecified; K57.90 Diverticulosis of intestine, part unspecified, without perforation or abscess without bleeding; E87.6 Hypokalemia; G43.909 Migraine, unspecified, not intractable, without status migrainosus; Z90.710 Acquired absence of both cervix and uterus; Z98.49 Cataract extraction status, unspecified eye; Z91.81 History of falling; Z82.0 Family history of epilepsy and other diseases of the nervous system; Z68.24 Body mass index [BMI] 24.0-24.9, adult; D63.0 Anemia in neoplastic disease; M35.3 Polymyalgia rheumatica

== ENCOUNTER → 2017-10-27 | Outpatient (CLI) | payer MEDICARE ==
[~2017-10-27] MED LIST changes: +ARAVA10 M1 PO; +BETAPACE80 MG PO; +CARTIA XT120 MG PO; +CYCLOBENZAPRINE5 M3 PO; +ELIQUIS5 M1 PO; +FAMOTIDINE20 M1 PO; +FUROSEMIDE40 MG PO; +HYDROXYCHLOROQ200 M1 PO; +LEFLUNOMIDE10 M1 PO; +LEVAQUIN750 M1 PO; +PLAQUENIL200 MG PO; +POTASSIUM CHLO20 ME4 PO; +PREDNISONE10 MG PO; +VALACYCLOVIR500 M1 PO
== END | disposition home or self-care (01) ==
LOC: RAD 11:57
DX: J44.9 Chronic obstructive pulmonary disease, unspecified (principal); I48.91 Unspecified atrial fibrillation; J45.909 Unspecified asthma, uncomplicated

== ENCOUNTER → 2018-01-05 | Outpatient (CLI) | payer MEDICARE | END | disposition home or self-care (01) | LOC: RESCLI 04:29 | DX: K21.9 Gastro-esophageal reflux disease without esophagitis (principal); I95.9 Hypotension, unspecified; J32.0 Chronic maxillary sinusitis; M06.9 Rheumatoid arthritis, unspecified; B02.9 Zoster without complications; E87.6 Hypokalemia; M62.830 Muscle spasm of back; E03.9 Hypothyroidism, unspecified; J45.909 Unspecified asthma, uncomplicated; Z98.890 Other specified postprocedural states ==

== ENCOUNTER → 2018-01-19 | Outpatient (CLI) | payer MEDICARE | END | disposition home or self-care (01) | LOC: RAD 12:18 | DX: M41.50 Other secondary scoliosis, site unspecified (principal); Z78.0 Asymptomatic menopausal state; Z90.710 Acquired absence of both cervix and uterus ==

== ENCOUNTER → 2018-06-22 | Outpatient (CLI) | payer MEDICARE ==
[~2018-06-22] MED LIST changes: +NATURE'S BLEND F1 MG PO
== END | disposition home or self-care (01) ==
LOC: RESCLI 02:38
DX: I48.0 Paroxysmal atrial fibrillation (principal); D47.2 Monoclonal gammopathy; I10 Essential (primary) hypertension; E55.9 Vitamin D deficiency, unspecified; E03.9 Hypothyroidism, unspecified; Z79.899 Other long term (current) drug therapy

== ENCOUNTER 2018-07-05 17:30 | Inpatient (IN) | payer MEDICARE ==
[~2018-07-05] VITALS: Ht 172.7 cm; Wt 80.8 kg
--- NOTE | ~2018-07-05 | PR ---
[place], [place] PROGRESS NOTE NAME: NATANAEL DESAI UNIT #: [id number] ROOM: 517 DOCTOR: RICHARD BARRAGAN MD,RICARDO BIRTHDATE: [birth year] DOS: 07/07/2018 PULMONARY PROGRESS NOTE SUBJECTIVE: The patient was independently seen and examined, [id number] encounter, history was confirmed. Physical examination performed. All the labs were reviewed to assess the patient for this visit were personally completed. The note done by the medical coder was approved as well. The patient has been showing continued improvement in the respiratory symptoms. Chest pain has been improving. The coughing has been decreased. Shortness breath was resolving. There were no symptoms of fever or chills reported by the patient. She was continued on antibiotic Levaquin high dose. She denies symptoms of nausea, vomiting, diarrhea, abdominal pain. Denies symptoms of hematemesis, melena, or hematochezia. There were no symptoms of hemoptysis. Remaining systems were reviewed. They were noted all negative. OBJECTIVE: VITAL SIGNS: For the patient, which are reviewed, showed the temperature remains as normal. The respiratory rate 18-20, heart rate 87, 101, blood pressure 127/82-140/84. The pulse oxygen saturation of the patient recorded as 94% saturation on room air. HEENT: Examination shows head was atraumatic. Eyes nonicterus. NECK: Supple. CARDIOVASCULAR: S1, S2 is audible. LUNGS: The patient was noted without any crackles, rhonchi, or wheezing. ABDOMEN: Soft, nontender, bowel sounds present. EXTREMITIES: The patient noted without any acute edema. MUSCULOSKELETAL: Noted without any acute deformities. Cranial nerves 2-12 intact. LABORATORY DATA: CBC that was done on 07/07/2018, WBC count 15.3, hemoglobin 10.3, platelet count was normal. BMP that was done on 07/07/2018 was noted normal BUN and creatinine. IMPRESSION: 1. Acute large area of consolidation involving the right upper lobe and lateral subsegment of the right middle lobe was considered community acquired infection, possibly strep pneumonia, likely cause. However, the patient has been noted increased risk of Pseudomonas aeruginosa pneumonia that remains in consideration. Blood culture so far noted negative. She has not been able to expectorate sputum that could be sent for cultures. 2. The patient has history of chronic steroid use for various rheumatologic condition. 3. History of multiple myeloma. 4. History of rheumatoid arthritis. 5. Bronchial asthma without any acute exacerbation. PLAN OF MANAGEMENT: Follow the temperature curve as well as WBC count. Repeat chest x-ray morning, PA lateral to reassess the improvement of the pulmonary [place], [place] PROGRESS NOTE NAME: NATANAEL DESAI UNIT #: [id number] ROOM: [facility] DOCTOR: RICHARD BARRAGAN MD,RICARDO BIRTHDATE: [birth year] infiltration and respond to current treatment. Clinically, the patient is responding to treatment. Continue bronchodilators. Sputum for Gram stain and culture if the patient expectorate sputum will be sent. RICARDO RAMOS MD CM:PNTRANS [phone] RICARDO BARRAGAN MD 07/07/18 2254 interface
--- NOTE | ~2018-07-05 | CON ---
[place], [place] REPORT OF CONSULTATION NAME: NATANAEL DESAI UNIT #: [id number] ROOM: 517 DOCTOR: MARILEE AL BIRTHDATE: [birth year] DOS: 07/06/2018 PULMONARY CONSULTATION, EVALUATION AND MANAGEMENT REASON FOR CONSULTATION: To assess the patient for acute pneumonia and other respiratory symptoms. HISTORY OF PRESENT ILLNESS: This is a 78-year-old female with a past medical history of mild intermittent bronchial asthma and allergic rhinitis. For the last week, the patient has noted increased fatigue. Yesterday, she states her fatigue increased even more and she noted symptoms of chest pain whenever she took a deep breath in. She also noted shortness of breath and fevers and chills at that time. The patient denies increased cough or sputum production. She is currently on 10 mg of prednisone a day chronically. In the ED, a chest x-ray was done, showing right upper lobe pneumonia, new from prior studies. Yesterday night, the patient was started on azithromycin and ceftriaxone. Today, the patient states she is feeling much better, decreased fatigue, but she does note that her chest pain has increased slightly whenever she takes a deep breath. REVIEW OF SYSTEMS: CONSTITUTIONAL: The patient complains of fatigue and tiredness with symptoms of fevers and chills. EYES: The patient denies any tenderness, but notes increased swelling over the last few months. EARS, NOSE AND THROAT: The patient denies sore throat and hoarseness. CARDIOVASCULAR: The patient denies anginal pain, but admits to slight increased swelling in her lower extremities. GASTROINTESTINAL: The patient denies nausea, vomiting, diarrhea, abdominal pain, hematemesis, melena or hematochezia. SKIN: The patient notes lesions since starting chemo over her extremities, but she denies any new rashes or lesions recently. CENTRAL NERVOUS SYSTEM: The patient denies headache. The remaining systems were reviewed with the patient, they were noted negative. PAST MEDICAL HISTORY: The patient is known with a history of: 1. Mild intermittent bronchial asthma. 2. Allergic rhinitis. 3. History of mitral valve prolapse. 4. Migraine headaches. 5. Polymyalgia rheumatica, on prednisone treatment. 6. Multiple myeloma diagnosed in 2016. 7. History of hypothyroidism. 8. History of rheumatoid arthritis. 9. History of paroxysmal atrial fibrillation, on anticoagulation. PAST SURGICAL HISTORY: Noted with: 1. Right rotator cuff surgery. 2. Complete hysterectomy. 3. Laparoscopy that was done 30 years ago. 4. Cataract extraction and lens implantation. [place], [place] REPORT OF CONSULTATION NAME: NATANAEL DESAI UNIT #: [id number] ROOM: [facility] DOCTOR: MARILEE AL BIRTHDATE: [birth year] SOCIAL HISTORY: The patient is retired resident nurse. She denies a history of illicit drug use or alcohol. The patient states she used tobacco for only 5 years, 1 pack of cigarettes per day that was discontinued 45 years ago. The patient is currently and lives at home. FAMILY HISTORY: The patient's father at the age of 5050 years old due to complications of Friedreich's ataxia. The patient's mother at 58 with complications of parkinsonism. MEDICATIONS: Eliquis, cyclobenzaprine, diltiazem, famotidine, folic acid, furosemide, hydroxychloroquine, Arava, potassium chloride, prednisone 10 mg, sotalol, albuterol, Colace, vitamin D3, Flonase, valacyclovir. DRUG ALLERGY HISTORY: Noted as no drug allergies. PHYSICAL EXAMINATION: GENERAL: This is a 78-year-old female who is noted to be awake and alert without distress at this time. The patient's height recorded at 5 feet 7 inches, BMI 27.1 kg. VITAL SIGNS: The patient's temperature is normal, respirations 20, heart rate 103, blood pressure 128/72, pulse oxygen saturation on 2 liters nasal cannula 97% saturation. HEENT: Head is atraumatic. Eyes nonicterus. NECK: Supple. CARDIOVASCULAR: S1, S2 audible. LUNGS: Noted with moderate decreased breath sounds and were clear bilaterally. ABDOMEN: Flat, soft, nontender, bowel sounds present. EXTREMITIES: The patient was noted without any edema, clubbing or cyanosis. CENTRAL NERVOUS SYSTEM: Grossly intact. MUSCULOSKELETAL: Without any acute deformities. VISIBLE SKIN: No erythema or new rashes. LABORATORY DATA: CBC that was done on admission, 07/05/2018: White blood cell count 18.6, hemoglobin 12, platelet count 246. CMP on admission, 07/06/2018: BUN 19, creatinine 0.7, carbon dioxide 23, glucose 134. CBC, 07/06/2018: White blood cell count decreased to 17.3, hemoglobin of 11.1, platelet count 228. CMP, 07/06/2018: BUN and creatinine normal, carbon dioxide 19. RADIOLOGY DATA REVIEW: Chest x-ray done on 07/05/2018, impression: Right upper lobe pneumonia, new from prior study. Chest CT, 07/06/2018, impression: Right upper lobe pneumonia with minimal right pleural effusion, no pulmonary fibrosis, no honeycombing, no significant adenopathy. IMPRESSION: 1. The patient has been currently admitted to the hospital, noted with consolidation in the right upper lobe compatible with pneumonia with minimal right pleural effusion. 2. History of bronchial asthma. 3. Mild leukocytosis secondary to acute active infection. [place], [place] REPORT OF CONSULTATION NAME: NATANAEL DESAI UNIT #: [id number] ROOM: [facility] DOCTOR: MARILEE AL BIRTHDATE: [birth year] 4. The patient presents with generalized weakness and fatigue related to current symptoms including fever. 5. Past known history of multiple myeloma. 6. Atrial fibrillation with tachycardia, significant except as noted on admission. PLAN OF MANAGEMENT: I agree with current antibiotic and bronchodilator management. The urine for Legionella antigen and strep antigen test ordered. The current home medications will be continued as previously ongoing. Sputum for Gram stain and culture was collected. Additional treatment changes will be made depending on the progression of the patient's illness and pending culture results. Close monitoring of the respiratory status will be continued. Influenza A and B panels were previously obtained yesterday and were negative. Supportive care. Other plans of management as well. Again, additional treatment changes need to be done based on progression of the illness. MARILEE AL DO RICARDO RAMOS MD CM:CONSTR:REPORT OF CONSULTATION 1252 07/06/18 1465 interface
--- NOTE | ~2018-07-05 | PR ---
[place], [place] PROGRESS NOTE NAME: NATANAEL DESAI UNIT #: [id number] ROOM: 517 DOCTOR: RICARDO CONRAD MD BIRTHDATE: [birth year] DOS: 07/08/2018 SUBJECTIVE: The patient was independently seen and examined, [id number] encounter, history was confirmed. Physical examination performed. All the labs were reviewed to assess the patient for this visit were personally completed. The note done by the medical microbiologist was approved as well. She has been noted comfortable at this time, resting in the bed without any acute distress. OBJECTIVE: VITAL SIGNS: Normal temperature, respiratory rate 20, heart rate of 88, blood pressure 124/80. The pulse oxygen saturation was recorded at rest on room air as 96% saturation. HEENT: Head was atraumatic. Eyes nonicterus. NECK: Supple. CARDIOVASCULAR: S1, S2 is audible. LUNGS: Without any wheezing or crackles. ABDOMEN: Soft and nontender. Bowel sounds present. EXTREMITIES: No acute edema. LABORATORY DATA: The chest x-ray done this morning showed reduction of previous noted large right upper lobe consolidation; however, the resolution noted incomplete. CBC was noted normal WBC count. IMPRESSION: 1. Resolving acute pneumonia for this patient with current antibiotic treatment, the patient with the Levaquin. 2. Persistent bronchial asthma, stable. 3. Chronic immunosuppression with prednisone therapy and other rheumatologic issues. PLAN OF MANAGEMENT: Discharge planning for the patient starting 750 mg, Levaquin upon discharge for the next 4-5 days. Continue in the meantime other therapy, plan of management, care plan of treatment. Usual care. [place], [place] PROGRESS NOTE NAME: NATANAEL DESAI UNIT #: [id number] ROOM: 517 DOCTOR: RICARDO CONRAD MD BIRTHDATE: [birth year] RICARDO RAMOS MD CM:PNTRANS [id number] RICARDO BARRAGAN MD 07/08/18 1254 interface
--- NOTE | ~2018-07-05 | PR ---
[place], [place] PROGRESS NOTE NAME: NATANAEL DESAI UNIT #: [id number] ROOM: 517 DOCTOR: MARILEE AL BIRTHDATE: [birth year] DOS: 07/07/2018 PULMONARY PROGRESS NOTE SUBJECTIVE: The patient was noted sitting resting comfortably in her bed. The patient states she is feeling much better today with decreased shortness of breath and decreased chest pain with breathing. The patient denies fevers, chills and increased sputum production or cough from her baseline. OBJECTIVE: VITAL SIGNS: Normal temperature, respiratory rate 20, pulse 93, blood pressure 127/82, the pulse oxygen saturation on room air is 94% saturation. HEENT: Head atraumatic, nonicterus. NECK: Supple. CARDIOVASCULAR: S1, S2 is audible. LUNGS: The patient's lungs were clear with [id number] decreased breath sounds. ABDOMEN: Soft, nontender. EXTREMITIES: The patient without any acute edema. MUSCULOSKELETAL: Without any acute deformities. SKIN: No visible new rashes or erythema. CENTRAL NERVOUS SYSTEM: Grossly intact. LABORATORY DATA: CBC on 07/07/2018, white blood cell count 15.3, hemoglobin 10.3, platelet count normal. CMP on 07/07/2018, BUN 21, creatinine 0.77, carbon dioxide 27, glucose 136. ASSESSMENT: 1. The patient with chronic immune deficiency, on prednisone 10 mg daily, presents to the hospital with current acute pneumonia, community acquired. 2. The patient has a history of bronchial asthma, currently without any acute exacerbation. PLAN OF MANAGEMENT: Chest x-ray will be ordered for tomorrow. Continue bronchodilators and prednisone. Other supportive therapy, plan of management and care. No changes in current antibiotics. Further change and treatment will be ordered based on progression of the patient's illness. MARILEE AL DO [place], [place] PROGRESS NOTE NAME: NATANAEL DESAI UNIT #: [id number] ROOM: 517 DOCTOR: MARILEE AL BIRTHDATE: [birth year] RICARDO RAMOS MD CM:ARIC [id number] MARILEE AL 07/08/18 0406 interface
--- NOTE | ~2018-07-05 | EKG ---
[place], [place] ELECTROCARDIOGRAM REPORT NAME: NATANAEL DESAI UNIT #: [id number] ROOM: 517 DOCTOR: CATARINA DRAFT REPORT BIRTHDATE: [birth year] [facility] Test Date: 2018-07-05 Test Time: 17:52:41 Pat Name: NATANAEL DESAI Department: Room: [facility] Gender: F External Relations Manager: Liliam San : 1940 Requested By: CHENTE NAIR Order Number: [id number] Reading MD: Ayad Steve MD Measurements Intervals Roberts Rate: 111 P: 0 PA: 165 QRS: -17 QRSD: 89 T: 11 QT: 332 QTc: 451 Interpretive Statements Fast sinus arrhythmia Left ventricular hypertrophy Electronically Signed On 07-08-2018 3:13:12 PST by Ayad Steve MD CM:EKGRPT:ELECTROCARDIOGRAM REPORT [id number] [id number] CHENTE ELMORE DRAFT REPORT CHENTE NAIR M.D.
--- NOTE | ~2018-07-05 | CON ---
[place], [place] REPORT OF CONSULTATION NAME: NTAANAEL DESAI UNIT #: [id number] ROOM: 517 DOCTOR: RICARDO CONRAD MD BIRTHDATE: [birth year] DOS: 07/06/2018 ADDENDUM NOTE PULMONARY CONSULTATION AND EVALUATION MANAGEMENT CONSULTATION REQUESTED BY: Hospitalist Service. REASON FOR CONSULTATION: For the assessment of acute pneumonia. The patient was independently seen and examined, [id number] encounter, history was confirmed. Physical examination performed. The labs were reviewed. Assessment and management of the patient personally completed for today's consultation. Note done by the medical insurance biller was approved as well. HISTORY OF PRESENT ILLNESS: This is a 78-year-old white female patient known with history of mild persistent bronchial asthma, history of allergic rhinitis as well with use of the corticosteroids, prednisone 10 mg daily for hematologic problems and also history of multiple myeloma, which has been treated by ER physician in [place], [place]. The patient noted in usual state of health until 24 hours prior to admission to the hospital. As the patient woke up, she started with having pain, which are described pleuritic in the right upper anterior chest wall, mild to moderate without radiation. She was also with generalized weakness, also noted with a temperature of 101.8 degrees Fahrenheit and increased shortness of breath with exertion. She does have mild cough. There was no sputum expectoration. There were no symptoms of hemoptysis. She thought that she has pneumonia, came into the Emergency Room for further assessment. She did not remember any aspiration or dysphagia symptoms. As the patient presented to the Emergency Room, was noted large area of consolidation, infiltration in the right upper lobe. The patient was admitted to the hospital for further medical management and started on intravenous Levaquin. The patient currently treated in the hospital noted with reduction of the fever as well as other respiratory symptoms. REVIEW OF SYSTEMS: Already completed by the medical insurance biller, was approved. PAST MEDICAL HISTORY: 1. The patient underwent hospitalization in 09/2017 for exactly similar pneumonia in the right upper lobe. Bronchoscopy done at that time as well. Diagnosis of any malignant process was excluded at that time. 2. History of multiple myeloma. 3. Mild persistent bronchial asthma. 4. Allergic rhinitis. 5. Mitral valve prolapse. 6. Migraine headache. 7. Polymyalgia rheumatica. 8. Hypothyroidism. 9. Rheumatoid arthritis. 10. Paroxysmal atrial fibrillation. [place], [place] REPORT OF CONSULTATION NAME: NATANAEL DESAI UNIT #: [id number] ROOM: [facility] DOCTOR: RICARDO CONRAD MD BIRTHDATE: [birth year] PAST SURGICAL HISTORY: 1. Right rotator cuff surgery. 2. Complete hysterectomy. 3. Laparoscopy. 4. Cataract extraction and lens implantation. 5. Fiberoptic bronchoscopy done on 09/09/2017. SOCIAL HISTORY: She is a retired RN. There was no history of alcohol use or illicit drug use. Tobacco use, 5-pack history of tobacco use in the past. Tobacco cessation was reported 45 years ago. FAMILY HISTORY: The patient's father age 5050 years old, complications of Friedreich's ataxia. The mother at the age of 5858 years old with complications of Parkinsonism. CURRENT MEDICATIONS: Administered this hospitalization for the patient were noted as use of Arava, folic acid, Eliquis, Cardizem, sotalol, vitamin D, Solu-Medrol, Protonix, Flexeril, DuoNeb, Mucinex 1200 mg p.o. b.i.d., Zithromax and Rocephin. DRUG ALLERGIES: The patient noted no known drug allergies. PHYSICAL EXAMINATION: GENERAL: A 78-year-old female patient who has been currently noted to be awake and alert at this time, resting and sitting on the chair this morning. Height was recorded 5 feet 8 inches, weight of 178 pounds, BMI 27. VITAL SIGNS: Temperature of 99.8 degrees Fahrenheit, noted 101.8 degrees Fahrenheit at home, respiratory rate of 16-20, heart rate of 113-72. The blood pressure 110/62-106/65. Pulse oxygen saturation recorded on the current admission on presentation to the Emergency Room as 89%, later on 88% and currently on 2 liters nasal cannula 96% saturation. HEENT: Head was atraumatic. Eyes nonicterus. NECK: Supple. CARDIOVASCULAR: S1, S2 is audible. LUNGS: The patient was noted with [id number]-tt-hcowqupy degree breath sound without wheezing or crackles heard. ABDOMEN: Soft, nontender. Bowel sounds present. EXTREMITIES: The patient without any acute edema. MUSCULOSKELETAL: Without any acute deformities. SKIN: Visible skin with no lesions or rashes. CENTRAL NERVOUS SYSTEM: Cranial nerves 2-12 intact. LABORATORY DATA: Labs on this patient CBC on admission, WBC count for the yesterday on admission, WBC count 18.6, hemoglobin and hematocrit normal, platelet count normal. The lactic acid 1.5 on admission. The CMP on admission, normal BUN and creatinine. CMP normal. PT/PTT yesterday was noted as normal. The troponin was also noted normal on admission. The influenza A and B washing antigens were negative. CBC of this morning, WBC count 17.3, hemoglobin 11.1, hematocrit 33%, platelet count 228,000. CMP of today, glucose 134, BUN normal, creatinine was normal. [place], [place] REPORT OF CONSULTATION NAME: NATANAEL DESAI UNIT #: [id number] ROOM: [facility] DOCTOR: RICHARD BARRAGAN MD,[facility] BIRTHDATE: [birth year] IMAGING STUDIES: Chest x-ray noted large area of consolidation involving almost all of the right upper lobe, especially the anterior and posterior segment involvement. CT scan of the chest, which was done without contrast this morning ordered by the primary care attending was reviewed confirmed presence of a very large infiltration, consolidation involving the right upper lobe as well as a small infiltration involving the lateral subsegment of the right middle lobe with associated small pleural fluid. There was no associated lymphadenopathy, which has visible growth. The lack of the IV contrast does limit the assessment of the mediastinal structures. IMPRESSION: 1. The patient with chronic immune deficiency, on prednisone 10 mg daily, presents to the hospital with current acute pneumonia, community-acquired pneumonia would be considered possibly to aspiration, micro aspiration cannot be completely excluded. 2. The patient has history of bronchial asthma without any acute exacerbation. The patient with acute hypoxic respiratory failure related to current acute pneumonia. 3. History of polymyalgia rheumatica. 4. History known for multiple myeloma, treated with medication. 5. History of rheumatoid arthritis. 6. The patient with history of chronic atrial fibrillation, which is permanent anticoagulation with Eliquis. 7. High risk for Pseudomonas aeruginosa infection because of chronic immunosuppressive therapy, use of prednisone as well. PLAN OF MANAGEMENT: The patient has been given the Levaquin in the Emergency Room that could be considered primary medication for the patient. The patient started Rocephin and Zithromax that would cover atypical organism including community-acquired infection with strep pneumonia, Haemophilus influenza and also coverage for the Pseudomonas aeruginosa. Monitor respiratory status otherwise closely. Continue home medication. The prednisone would be continued 10 mg daily. Other usual dose. Monitor chest x-ray closely. Obtain the urine for legionella antigen patient strep pneumonia antigen as well. De-escalation of antibiotic with change in antibiotic will be done after the available culture results of the blood for the patient's sputum and others. The patient has been started on Solu-Medrol, which would be discontinued and is not needed as she does not have any acute exacerbation of bronchial asthma. Prednisone 10 mg usual dose has been ordered. Bronchodilator to continue. Continue the sputum for Gram stain and culture as well. Usual care, other supportive plan of therapy and care, plan of management and care. Additional treatment changes will be made for based on progression of the illness. Thank you for allowing me to participate in the care of this patient. [place], [place] REPORT OF CONSULTATION NAME: NATANAEL DESAI UNIT #: [id number] ROOM: [facility] DOCTOR: RICARDO CONRAD MD BIRTHDATE: [birth year] RICARDO RAMOS MD CM:CONSTR:REPORT OF CONSULTATION 1307 07/16/18 1030 interface
--- NOTE | ~2018-07-05 | PR ---
[place], [place] PROGRESS NOTE NAME: NATANAEL DESAI UNIT #: [id number] ROOM: 517 DOCTOR: MARILEE AL BIRTHDATE: [birth year] DOS: 07/08/2018 PULMONARY PROGRESS NOTE SUBJECTIVE: The patient was noted at rest in her bed without any signs of distress. The patient states she has been feeling well with decreased symptoms of shortness of breath. Denies fevers or chills and notes that she no longer has chest pain while taking a deep breath. The patient will be continued on Levaquin high dose. OBJECTIVE: VITAL SIGNS: Normal temperature, respiratory rate 18, heart rate 88, blood pressure 112/58, pulse oxygen saturation on room air 96%. HEENT: Head was atraumatic. Eyes nonicterus. NECK: Supple. CARDIOVASCULAR: S1, S2 is audible. LUNGS: The patient was noted without any crackles or wheezing. Lungs were clear throughout, slightly diminished. ABDOMEN: Soft, nontender. EXTREMITIES: The patient was noted without any acute edema. MUSCULOSKELETAL: No acute deformities noted. CENTRAL NERVOUS SYSTEM: Grossly intact. LABORATORY DATA: CBC done on 07/08/2018; white blood cell count 9.8, hemoglobin 9.8, platelet count 262. CMP done on 07/08/2018; BUN 19, creatinine 0.68, carbon dioxide 29, glucose 88. IMPRESSION: 1. Large area of consolidation involving the right upper lobe and lateral subsegment of the right middle lobe, was considered community-acquired infection. The patient noted with increased risk of Pseudomonas aeruginosa pneumonia. Blood cultures, no bacterial growth. 2. The patient has a history of chronic steroid use for various rheumatological disorders. 3. History of multiple myeloma. 4. History of rheumatoid arthritis. 5. Bronchial asthma without any acute exacerbation. PLAN OF MANAGEMENT: The patient's chest x-ray ordered this morning showed large improvement. White blood cell count dropped from 15.3-9.8 and the patient no longer has chest pain while breathing. The patient may be discharged from a pulmonary standpoint. The patient is to be discharged on her Levaquin for 5 days. MARILEE AL DO [place], [place] PROGRESS NOTE NAME: NATANAEL DESAI UNIT #: [id number] ROOM: [facility] DOCTOR: MARILEE AL BIRTHDATE: [birth year] RICARDO RAMOS MD CM:ARIC [id number] MARILEE AL 07/08/18 1353 interface
[~2018-07-05 17:30] MED LIST changes: -NATURE'S BLEND F1 MG PO
[2018-07-05 17:31] VITALS: BP 110/62
[2018-07-05 18:03] LABS: BASO # 0.1 10*3/uL (0.0-0.1); BASO % 0.3 % (0.0-1.0); EOS % 0.2 % (1.0-4.0); HEMATOCRIT 38.2 % (37.0-47.0); LYMPH % 5.5 % (27.0-41.0); MEAN CORPUSCULAR HGB 30.2 pg (27.0-31.0); MEAN CORPUSCULAR HGB CONC 31.4 g/dl (33.0-37.0); MEAN PLATELET VOLUME 9.4 fl (9.6-12.3); MONO # 0.9 10*3/uL (0.1-1.0); NEUT # 16.4 10*3/uL (2.3-7.9); NEUT % 88.2 % (47.0-73.0); PLATELET COUNT AUTOMATED 246 10*3/uL (130-400); RED BLOOD COUNT 3.98 10*6/uL (4.10-5.10); RED CELL DISTRI WIDTH 14.6 % (0-14.5); WHITE BLOOD COUNT 18.6 10*3/uL (4.8-10.8)
[2018-07-05 18:14] VITALS: BP 106/69
[2018-07-05 18:17] LABS: ALBUMIN 3.2 gm/dl (3.1-4.5); ALKALINE PHOSPHATASE 66 U/L (45-117); BUN 18 mg/dl (7-24); CHLORIDE 102 mmol/L (98-107); CREATININE 1.01 mg/dL (0.55-1.02); POTASSIUM 3.7 mmol/L (3.5-5.1); SGOT/AST 22 IU/L (3-35); SGPT/ALT 23 U/L (12-78); SODIUM 136 mmol/L (136-145); TOTAL PROTEIN 7.2 gm/dL (6.4-8.2)
[2018-07-05 19:01] VITALS: BP 121/70
[2018-07-05 20:00] VITALS: BP 106/66
[2018-07-05 20:02] VITALS: BP 106/66
[2018-07-05 21:01] LABS: ACT PARTIAL THROMBO TIME 30.1 SECONDS (20.8-31.5); INTERNATIONAL NORM RATIO 1.1 (2.0-3.5)
[2018-07-05] MEDS ORDERED: NATURE'S BLEND F1 MG PO (21:06)
[2018-07-05 21:12] LABS: TROPONIN I < 0.015 ng/ml (<0.045)
[2018-07-06] VITALS: BP 106/65
[2018-07-06 06:40] LABS: HEMATOCRIT 33.7 % (37.0-47.0); HEMOGLOBIN 11.1 g/dl (12.0-16.0); MEAN CELL VOLUME 93.4 fl (81.0-99.0); MEAN CORPUSCULAR HGB 30.7 pg (27.0-31.0); MEAN CORPUSCULAR HGB CONC 32.9 g/dl (33.0-37.0); MEAN PLATELET VOLUME 9.3 fl (9.6-12.3); PLATELET COUNT AUTOMATED 228 10*3/uL (130-400); RED BLOOD COUNT 3.61 10*6/uL (4.10-5.10); RED CELL DISTRI WIDTH 14.4 % (0-14.5); WHITE BLOOD COUNT 17.3 10*3/uL (4.8-10.8)
[2018-07-06 07:12] LABS: ALBUMIN 2.4 gm/dl (3.1-4.5); BUN 19 mg/dl (7-24); CHLORIDE 106 mmol/L (98-107); CHOLESTEROL 139 mg/dL (<200); POTASSIUM 3.9 mmol/L (3.5-5.1); SGOT/AST 18 IU/L (3-35); SGPT/ALT 23 U/L (12-78); SODIUM 139 mmol/L (136-145)
[2018-07-06 07:17] LABS: PLATELET SUFFICIENCY NORMAL (NORMAL); TOTAL CELLS COUNTED 100 #CELLS
[2018-07-06 07:20] LABS: ALKALINE PHOSPHATASE 64 U/L (45-117); FREE T4 1.03 ng/dl (0.76-1.46); HDL CHOLESTEROL 54 mg/dl (40-60); LDL CHOLESTEROL 63 mg/dL (9-159); PHOSPHOROUS 3.3 mg/dL (2.5-4.9); THYROID STIM HORMONE (HS) 0.192 uIU/ml (0.358-4.75); TOTAL PROTEIN 6.6 gm/dL (6.4-8.2); TRIGLYCERIDES 108 mg/dl (<150); VLDL CHOLESTEROL 22 mg/dL (6-40)
[2018-07-06 08:00] VITALS: BP 128/72
[2018-07-06 08:45] LABS: VITAMIN D, 25-HYDROXY 18.9 ng/mL (30-100)
[2018-07-06 12:00] VITALS: BP 142/74
[2018-07-06 16:00] VITALS: BP 133/65
[2018-07-06 20:00] VITALS: BP 140/84
[2018-07-07] VITALS: BP 127/82
[2018-07-07 06:36] LABS: HEMATOCRIT 31.8 % (37.0-47.0); HEMOGLOBIN 10.3 g/dl (12.0-16.0); MEAN CELL VOLUME 94.1 fl (81.0-99.0); MEAN CORPUSCULAR HGB 30.5 pg (27.0-31.0); MEAN CORPUSCULAR HGB CONC 32.4 g/dl (33.0-37.0); PLATELET COUNT AUTOMATED 255 10*3/uL (130-400); RED BLOOD COUNT 3.38 10*6/uL (4.10-5.10); RED CELL DISTRI WIDTH 14.6 % (0-14.5); WHITE BLOOD COUNT 15.3 10*3/uL (4.8-10.8)
[2018-07-07 06:41] LABS: BUN 21 mg/dl (7-24); CHLORIDE 107 mmol/L (98-107); CREATININE 0.77 mg/dL (0.55-1.02); POTASSIUM 3.9 mmol/L (3.5-5.1); SODIUM 141 mmol/L (136-145)
[2018-07-07 07:06] LABS: PLATELET SUFFICIENCY NORMAL (NORMAL); TOTAL CELLS COUNTED 100 #CELLS
[2018-07-07 12:00] VITALS: BP 117/67
[2018-07-07 16:00] VITALS: BP 127/81
[2018-07-07 20:00] VITALS: BP 123/71
[2018-07-08] VITALS: BP 126/72
[2018-07-08 06:39] LABS: BASO % 0.1 % (0.0-1.0); EOS # 0.1 10*3/uL (0.0-0.4); EOS % 0.6 % (1.0-4.0); HEMATOCRIT 30.8 % (37.0-47.0); HEMOGLOBIN 9.8 g/dl (12.0-16.0); LYMPH # 0.7 10*3/uL (1.3-4.4); LYMPH % 7.6 % (27.0-41.0); MEAN CELL VOLUME 95.4 fl (81.0-99.0); MEAN CORPUSCULAR HGB 30.3 pg (27.0-31.0); MEAN CORPUSCULAR HGB CONC 31.8 g/dl (33.0-37.0); MEAN PLATELET VOLUME 9.8 fl (9.6-12.3); MONO # 0.8 10*3/uL (0.1-1.0); MONO % 8.6 % (3.0-9.0); NEUT # 8.1 10*3/uL (2.3-7.9); NEUT % 82.6 % (47.0-73.0); PLATELET COUNT AUTOMATED 262 10*3/uL (130-400); RED BLOOD COUNT 3.23 10*6/uL (4.10-5.10); RED CELL DISTRI WIDTH 14.5 % (0-14.5); WHITE BLOOD COUNT 9.8 10*3/uL (4.8-10.8)
[2018-07-08 07:10] LABS: ALBUMIN 2.4 gm/dl (3.1-4.5); BUN 19 mg/dl (7-24); CHLORIDE 109 mmol/L (98-107); CREATININE 0.68 mg/dL (0.55-1.02); SGOT/AST 17 IU/L (3-35); SGPT/ALT 22 U/L (12-78); SODIUM 143 mmol/L (136-145)
[2018-07-08 07:12] LABS: ALKALINE PHOSPHATASE 53 U/L (45-117); TOTAL PROTEIN 6.2 gm/dL (6.4-8.2)
[2018-07-08 08:00] VITALS: BP 124/80
[2018-07-08 12:00] VITALS: BP 112/58
[2018-07-08] MEDS ORDERED: LEVAQUIN750 M1 PO (12:25)
[2018-07-08 16:00] VITALS: BP 117/64
== END 2018-07-08 17:54 | disposition home or self-care (01) | DRG 871 ==
LOC: ED 17:30 → EDHOLD 19:10 → 5E 19:10
PROVIDERS: Emergency Medicine; Internal Medicine; Podiatrist Primary Podiatric Medicine
DX: A41.9 Sepsis, unspecified organism (principal); J18.1 Lobar pneumonia, unspecified organism; J96.01 Acute respiratory failure with hypoxia; E44.1 Mild protein-calorie malnutrition; D68.69 Other thrombophilia; C90.00 Multiple myeloma not having achieved remission; N17.9 Acute kidney failure, unspecified; E86.0 Dehydration; H81.10 Benign paroxysmal vertigo, unspecified ear; M19.90 Unspecified osteoarthritis, unspecified site; T45.1X5A Adverse effect of antineoplastic and immunosuppressive drugs, initial encounter; I48.0 Paroxysmal atrial fibrillation; D47.2 Monoclonal gammopathy; F19.90 Other psychoactive substance use, unspecified, uncomplicated; J45.909 Unspecified asthma, uncomplicated; R65.20 Severe sepsis without septic shock; K21.9 Gastro-esophageal reflux disease without esophagitis; J84.10 Pulmonary fibrosis, unspecified; M06.9 Rheumatoid arthritis, unspecified; K57.90 Diverticulosis of intestine, part unspecified, without perforation or abscess without bleeding; E04.1 Nontoxic single thyroid nodule; E03.9 Hypothyroidism, unspecified; M81.0 Age-related osteoporosis without current pathological fracture; E66.3 Overweight; Z90.710 Acquired absence of both cervix and uterus; Z98.49 Cataract extraction status, unspecified eye; Z87.891 Personal history of nicotine dependence; Y92.89 Other specified places as the place of occurrence of the external cause; Z79.51 Long term (current) use of inhaled steroids; Z79.899 Other long term (current) drug therapy; Z79.01 Long term (current) use of anticoagulants; Z68.27 Body mass index [BMI] 27.0-27.9, adult

== ENCOUNTER 2018-11-07 07:08 | Emergency (ER) | payer MEDICARE ==
[~2018-11-07] VITALS: Ht 172.7 cm; Wt 72.1 kg
[~2018-11-07 07:08] MED LIST changes: +NATURE'S BLEND F1 MG PO
[2018-11-07 07:47] LABS: BASO # 0.1 10*3/uL (0.0-0.1); BASO % 0.6 % (0.0-1.0); EOS % 0.3 % (1.0-4.0); HEMATOCRIT 30.4 % (37.0-47.0); HEMOGLOBIN 9.2 g/dl (12.0-16.0); LYMPH # 0.6 10*3/uL (1.3-4.4); LYMPH % 7.5 % (27.0-41.0); MEAN CORPUSCULAR HGB 28.8 pg (27.0-31.0); MEAN CORPUSCULAR HGB CONC 30.3 g/dl (33.0-37.0); MONO # 0.6 10*3/uL (0.1-1.0); MONO % 7.1 % (3.0-9.0); NEUT # 6.5 10*3/uL (2.3-7.9); PLATELET COUNT AUTOMATED 308 10*3/uL (130-400); RED CELL DISTRI WIDTH 14.6 % (0-14.5); WHITE BLOOD COUNT 7.8 10*3/uL (4.8-10.8)
[2018-11-07 07:56] LABS: ACT PARTIAL THROMBO TIME 25.1 SECONDS (20.8-31.5)
[2018-11-07 08:08] LABS: BUN 26 mg/dl (7-24); CHLORIDE 108 mmol/L (98-107); CREATININE 0.78 mg/dL (0.55-1.02); POTASSIUM 3.9 mmol/L (3.5-5.1); SODIUM 141 mmol/L (136-145)
== END 2018-11-07 09:48 | disposition home or self-care (01) ==
LOC: ED 07:08
PROVIDERS: Emergency Medicine
DX: R04.0 Epistaxis (principal); E03.9 Hypothyroidism, unspecified; M19.90 Unspecified osteoarthritis, unspecified site; M81.0 Age-related osteoporosis without current pathological fracture; Z87.891 Personal history of nicotine dependence; Z79.899 Other long term (current) drug therapy

== ENCOUNTER → 2018-12-14 | Outpatient (CLI) | payer MEDICARE | END | disposition home or self-care (01) | LOC: RESCLI 00:39 | DX: M06.9 Rheumatoid arthritis, unspecified (principal); M54.32 Sciatica, left side; R60.9 Edema, unspecified; I48.0 Paroxysmal atrial fibrillation; J30.89 Other allergic rhinitis; E55.9 Vitamin D deficiency, unspecified; K21.9 Gastro-esophageal reflux disease without esophagitis; E03.9 Hypothyroidism, unspecified ==

== ENCOUNTER 2019-01-28 12:09 | Emergency (ER) | payer MEDICARE ==
[~2019-01-28] VITALS: Ht 167.6 cm; Wt 72.6 kg
--- NOTE | ~2019-01-28 | EKG ---
[place], [place] ELECTROCARDIOGRAM REPORT NAME: NATANAEL DESAI UNIT #: [id number] ROOM: DOCTOR: EPIPHANY DRAFT REPORT BIRTHDATE: [birth year] [facility] Test Date: 2019-01-28 Test Time: 18:03:40 Pat Name: NATANAEL DESAI Department: Room: Gender: F Application Development Director: TY : 1940 Requested By: ELIDA CALERO Order Number: [id number] Reading MD: Sammy Moulton MD Measurements Intervals Payne Rate: 63 P: 54 MD: 127 QRS: 66 QRSD: 108 T: 54 QT: 469 QTc: 481 Interpretive Statements Sinus rhythm Atrial premature complexes RSR' in V1 or V2, right VCD or RVH Compared to ECG 07/05/2018 17:52:41 Atrial premature complex(es) now present Right ventricular hypertrophy now present RSR' in V1 or V2 now present Sinus arrhythmia no longer present Left ventricular hypertrophy no longer present Electronically Signed On 01-31-2019 8:10:57 PDT by Sammy Moulton MD CM:EKGRPT:ELECTROCARDIOGRAM REPORT 1803 0810 [facility] ELIDA CALERO MD
--- NOTE | ~2019-01-28 | EKG ---
[place], [place] ELECTROCARDIOGRAM REPORT NAME: NATANAEL DESAI UNIT #: [id number] ROOM: DOCTOR: EPIPHANY DRAFT REPORT BIRTHDATE: [birth year] [facility] Test Date: 2019-01-28 Test Time: 12:17:21 Pat Name: NATANAEL DESAI Department: Room: Gender: F Acid Supervisor: : 1940 Requested By: ELIDA CALERO Order Number: [id number] Reading MD: Sammy Moulton MD Measurements Intervals Young Rate: 83 P: 31 NH: 136 QRS: 51 QRSD: 101 T: 54 QT: 401 QTc: 472 Interpretive Statements Sinus rhythm Atrial premature complex RSR' in V1 or V2, probably normal variant Minimal ST depression, anterior leads Compared to ECG 07/05/2018 17:52:41 Atrial premature complex(es) now present RSR' in V1 or V2 now present ST (T wave) deviation now present Sinus arrhythmia no longer present Left ventricular hypertrophy no longer present Electronically Signed On 01-31-2019 8:09:06 PDT by Sammy Moulton MD CM:EKGRPT:ELECTROCARDIOGRAM REPORT 1217 0809 ELIDA CALERO MD EPIPHANY DRAFT REPORT ELIDA CALERO MD
--- NOTE | ~2019-01-28 | EKG ---
[place], [place] ELECTROCARDIOGRAM REPORT NAME: NATANAEL DESAI UNIT #: [id number] ROOM: DOCTOR: EPIPHANY DRAFT REPORT BIRTHDATE: [birth year] [facility] Test Date: 2019-01-28 Test Time: 15:25:06 Pat Name: NATANAEL DESAI Department: Room: Gender: F Oracle Application Architect: : [id number] Requested By: ELIDA CALERO Order Number: [id number] Reading MD: Sammy Moulton MD Measurements Intervals [place] Rate: 67 P: 11 MO: 138 QRS: 57 QRSD: 105 T: 59 QT: 442 QTc: 467 Interpretive Statements Sinus rhythm RSR' in V1 or V2, right VCD or RVH Compared to ECG 07/05/2018 17:52:41 Right ventricular hypertrophy now present RSR' in V1 or V2 now present Sinus arrhythmia no longer present Left ventricular hypertrophy no longer present Electronically Signed On 01-31-2019 8:10:07 PDT by Sammy Moulton MD CM:EKGRPT:ELECTROCARDIOGRAM REPORT [id number] ELIDA ELMORE DRAFT REPORT ELIDA CALERO MD
[2019-01-28 12:43] LABS: HEMATOCRIT 22.3 % (37.0-47.0); HEMOGLOBIN 6.6 g/dl (12.0-16.0); MEAN CELL VOLUME 89.9 fl (81.0-99.0); MEAN CORPUSCULAR HGB 26.6 pg (27.0-31.0); MEAN CORPUSCULAR HGB CONC 29.6 g/dl (33.0-37.0); PLATELET COUNT AUTOMATED 92 10*3/uL (130-400); RED BLOOD COUNT 2.48 10*6/uL (4.10-5.10); RED CELL DISTRI WIDTH 16.6 % (0-14.5)
[2019-01-28 12:49] LABS: WHITE BLOOD COUNT 0.3 10*3/uL (4.8-10.8)
[2019-01-28 12:51] LABS: ACT PARTIAL THROMBO TIME 36.9 SECONDS (20.0-32.1); INTERNATIONAL NORM RATIO 1.1 (2.0-3.5)
[2019-01-28 13:04] LABS: ALBUMIN 2.2 gm/dl (3.1-4.5); ALKALINE PHOSPHATASE 71 U/L (45-117); BUN 22 mg/dl (7-24); CHLORIDE 108 mmol/L (98-107); POTASSIUM 3.6 mmol/L (3.5-5.1); SGOT/AST 13 IU/L (3-35); SGPT/ALT 19 U/L (12-78); SODIUM 141 mmol/L (136-145); TOTAL PROTEIN 5.8 gm/dL (6.4-8.2)
[2019-01-28 13:06] LABS: TROPONIN I < 0.015 ng/ml (<0.045)
[2019-01-28 13:27] LABS: ATYPICAL LYMPHS 3 % (0-0); BASOPHILS 1 % (0-1); PLATELET SUFFICIENCY LOW (NORMAL); TOTAL CELLS COUNTED 100 #CELLS
[2019-01-28 13:28] LABS: DOHLE BODIES FEW; TOXIC GRANULATION SLIGHT
== END 2019-01-28 18:56 | disposition short-term general hospital (02) ==
LOC: ED 12:09
PROVIDERS: Emergency Medicine
DX: A41.9 Sepsis, unspecified organism (principal); J18.1 Lobar pneumonia, unspecified organism; R65.20 Severe sepsis without septic shock; D70.9 Neutropenia, unspecified; R21 Rash and other nonspecific skin eruption; I48.91 Unspecified atrial fibrillation; E03.9 Hypothyroidism, unspecified; M81.0 Age-related osteoporosis without current pathological fracture; M06.9 Rheumatoid arthritis, unspecified; Z79.899 Other long term (current) drug therapy; Z90.710 Acquired absence of both cervix and uterus; Z87.891 Personal history of nicotine dependence

== ENCOUNTER → 2019-03-14 | Outpatient (CLI) | payer MEDICARE ==
[2019-03-14 09:15] LABS: BASO % 0.1 % (0.0-1.0); EOS % 0.5 % (1.0-4.0); HEMATOCRIT 34.7 % (37.0-47.0); LYMPH # 1.1 10*3/uL (1.3-4.4); LYMPH % 13.2 % (27.0-41.0); MEAN CELL VOLUME 95.3 fl (81.0-99.0); MEAN CORPUSCULAR HGB 30.2 pg (27.0-31.0); MEAN CORPUSCULAR HGB CONC 31.7 g/dl (33.0-37.0); MEAN PLATELET VOLUME 9.9 fl (9.6-12.3); MONO # 1.1 10*3/uL (0.1-1.0); NEUT # 5.9 10*3/uL (2.3-7.9); NEUT % 72.6 % (47.0-73.0); PLATELET COUNT AUTOMATED 325 10*3/uL (130-400); RED BLOOD COUNT 3.64 10*6/uL (4.10-5.10); RED CELL DISTRI WIDTH 21.3 % (0-14.5); WHITE BLOOD COUNT 8.2 10*3/uL (4.8-10.8)
== END | disposition home or self-care (01) ==
LOC: LAB 00:42
PROVIDERS: Internal Medicine Hematology & Oncology
DX: R63.4 Abnormal weight loss (principal); D47.1 Chronic myeloproliferative disease; C90.00 Multiple myeloma not having achieved remission; R60.0 Localized edema; D63.0 Anemia in neoplastic disease

== ENCOUNTER → 2019-03-21 | Outpatient (CLI) | payer MEDICARE ==
[2019-03-21 09:39] LABS: BASO % 0.2 % (0.0-1.0); EOS # 0.1 10*3/uL (0.0-0.4); EOS % 0.8 % (1.0-4.0); HEMATOCRIT 36.1 % (37.0-47.0); HEMOGLOBIN 11.5 g/dl (12.0-16.0); LYMPH # 1.2 10*3/uL (1.3-4.4); LYMPH % 11.8 % (27.0-41.0); MEAN CELL VOLUME 98.6 fl (81.0-99.0); MEAN CORPUSCULAR HGB 31.4 pg (27.0-31.0); MEAN CORPUSCULAR HGB CONC 31.9 g/dl (33.0-37.0); MEAN PLATELET VOLUME 10.3 fl (9.6-12.3); MONO # 1.1 10*3/uL (0.1-1.0); MONO % 10.4 % (3.0-9.0); NEUT # 7.6 10*3/uL (2.3-7.9); NEUT % 74.8 % (47.0-73.0); NUCLEATED RED BLOOD CELL 0.2 % (0.0-0.0); PLATELET COUNT AUTOMATED 387 10*3/uL (130-400); RED BLOOD COUNT 3.66 10*6/uL (4.10-5.10); RED CELL DISTRI WIDTH 21.7 % (0-14.5); WHITE BLOOD COUNT 10.2 10*3/uL (4.8-10.8)
== END | disposition home or self-care (01) ==
LOC: LAB 00:12
PROVIDERS: Internal Medicine Hematology & Oncology
DX: C90.00 Multiple myeloma not having achieved remission (principal); R63.4 Abnormal weight loss; I49.9 Cardiac arrhythmia, unspecified; R60.0 Localized edema; S32.10XA Unspecified fracture of sacrum, initial encounter for closed fracture; D63.0 Anemia in neoplastic disease

== ENCOUNTER → 2019-03-28 | Outpatient (CLI) | payer MEDICARE ==
[2019-03-28 08:28] LABS: HEMATOCRIT 31.3 % (37.0-47.0); HEMOGLOBIN 9.8 g/dl (12.0-16.0); MEAN CELL VOLUME 101.3 fl (81.0-99.0); MEAN CORPUSCULAR HGB 31.7 pg (27.0-31.0); MEAN CORPUSCULAR HGB CONC 31.3 g/dl (33.0-37.0); MEAN PLATELET VOLUME 10.3 fl (9.6-12.3); PLATELET COUNT AUTOMATED 243 10*3/uL (130-400); RED BLOOD COUNT 3.09 10*6/uL (4.10-5.10); RED CELL DISTRI WIDTH 21.8 % (0-14.5)
[2019-03-28 12:14] LABS: TOTAL CELLS COUNTED 100 #CELLS
[2019-03-28 12:15] LABS: OVALOCYTES FEW; PLATELET SUFFICIENCY NORMAL (NORMAL); POLYCHROMASIA SLIGHT; SCHISTOCYTES FEW
== END | disposition home or self-care (01) ==
LOC: LAB 00:15
PROVIDERS: Internal Medicine Hematology & Oncology
DX: C90.00 Multiple myeloma not having achieved remission (principal); I49.9 Cardiac arrhythmia, unspecified; R60.0 Localized edema; D63.0 Anemia in neoplastic disease; D47.2 Monoclonal gammopathy; R63.4 Abnormal weight loss; S32.10XA Unspecified fracture of sacrum, initial encounter for closed fracture; X58.XXXA Exposure to other specified factors, initial encounter; Y93.89 Activity, other specified; Y92.89 Other specified places as the place of occurrence of the external cause; Y99.8 Other external cause status

== ENCOUNTER → 2019-04-04 | Outpatient (CLI) | payer MEDICARE ==
[2019-04-04 08:44] LABS: HEMATOCRIT 28.8 % (37.0-47.0); HEMOGLOBIN 9.2 g/dl (12.0-16.0); MEAN CELL VOLUME 101.4 fl (81.0-99.0); MEAN CORPUSCULAR HGB 32.4 pg (27.0-31.0); MEAN CORPUSCULAR HGB CONC 31.9 g/dl (33.0-37.0); MEAN PLATELET VOLUME 10.2 fl (9.6-12.3); PLATELET COUNT AUTOMATED 167 10*3/uL (130-400); RED BLOOD COUNT 2.84 10*6/uL (4.10-5.10); RED CELL DISTRI WIDTH 21.8 % (0-14.5)
[2019-04-04 09:58] LABS: TOTAL CELLS COUNTED 100 #CELLS
[2019-04-04 09:59] LABS: OVALOCYTES FEW; PLATELET SUFFICIENCY NORMAL (NORMAL); POLYCHROMASIA SLIGHT
== END | disposition home or self-care (01) ==
LOC: LAB 01:10
PROVIDERS: Physician Assistant
DX: S32.10XA Unspecified fracture of sacrum, initial encounter for closed fracture (principal); D47.2 Monoclonal gammopathy; R63.4 Abnormal weight loss; C90.00 Multiple myeloma not having achieved remission; I49.9 Cardiac arrhythmia, unspecified; E63.0 Essential fatty acid [EFA] deficiency; X58.XXXA Exposure to other specified factors, initial encounter; Y93.89 Activity, other specified; Y92.89 Other specified places as the place of occurrence of the external cause; Y99.8 Other external cause status

== ENCOUNTER → 2019-04-11 | Outpatient (CLI) | payer MEDICARE ==
[2019-04-11 09:08] LABS: HEMATOCRIT 29.7 % (37.0-47.0); HEMOGLOBIN 9.6 g/dl (12.0-16.0); MEAN CELL VOLUME 103.1 fl (81.0-99.0); MEAN CORPUSCULAR HGB 33.3 pg (27.0-31.0); MEAN CORPUSCULAR HGB CONC 32.3 g/dl (33.0-37.0); MEAN PLATELET VOLUME 9.8 fl (9.6-12.3); NUCLEATED RED BLOOD CELL 0.1 10*3/uL (0.0-0.0); NUCLEATED RED BLOOD CELL 0.9 % (0.0-0.0); PLATELET COUNT AUTOMATED 284 10*3/uL (130-400); RED BLOOD COUNT 2.88 10*6/uL (4.10-5.10); RED CELL DISTRI WIDTH 20.7 % (0-14.5); WHITE BLOOD COUNT 5.8 10*3/uL (4.8-10.8)
[2019-04-11 09:51] LABS: PLATELET SUFFICIENCY NORMAL (NORMAL); POLYCHROMASIA SLIGHT; TOTAL CELLS COUNTED 100 #CELLS
[2019-04-11 09:52] LABS: OVALOCYTES FEW
[2019-04-11 09:54] LABS: SCHISTOCYTES FEW
== END | disposition home or self-care (01) ==
LOC: LAB 03:09
PROVIDERS: Internal Medicine Hematology & Oncology
DX: S32.10XA Unspecified fracture of sacrum, initial encounter for closed fracture (principal); C90.00 Multiple myeloma not having achieved remission; D47.2 Monoclonal gammopathy; R63.4 Abnormal weight loss; I49.9 Cardiac arrhythmia, unspecified; R60.0 Localized edema; D63.0 Anemia in neoplastic disease; X58.XXXA Exposure to other specified factors, initial encounter; Y93.89 Activity, other specified; Y92.89 Other specified places as the place of occurrence of the external cause; Y99.8 Other external cause status

== ENCOUNTER → 2019-04-15 | Outpatient (CLI) | payer MEDICARE | END | disposition home or self-care (01) | LOC: RESCLI 00:34 | DX: I48.0 Paroxysmal atrial fibrillation (principal); M54.32 Sciatica, left side; R60.9 Edema, unspecified; M06.9 Rheumatoid arthritis, unspecified; J30.89 Other allergic rhinitis; E55.9 Vitamin D deficiency, unspecified; K21.9 Gastro-esophageal reflux disease without esophagitis; J44.9 Chronic obstructive pulmonary disease, unspecified; C90.01 Multiple myeloma in remission; Z79.899 Other long term (current) drug therapy ==

== ENCOUNTER → 2019-05-31 | Outpatient (CLI) | payer MEDICARE ==
[2019-05-31 11:06] LABS: BUN 20 mg/dl (7-24); CHLORIDE 110 mmol/L (98-107); CREATININE 0.84 mg/dL (0.55-1.02); POTASSIUM 4.3 mmol/L (3.5-5.1); SODIUM 143 mmol/L (136-145)
== END | disposition home or self-care (01) ==
LOC: LAB 00:51
PROVIDERS: Internal Medicine Cardiovascular Disease
DX: C90.00 Multiple myeloma not having achieved remission (principal); I48.0 Paroxysmal atrial fibrillation; I34.0 Nonrheumatic mitral (valve) insufficiency; R46.0 Very low level of personal hygiene

== ENCOUNTER → 2019-06-20 | Outpatient (CLI) | payer MEDICARE ==
[2019-06-20 09:29] LABS: BASO % 0.2 % (0.0-1.0); EOS % 0.3 % (1.0-4.0); HEMATOCRIT 31.3 % (37.0-47.0); HEMOGLOBIN 9.6 g/dl (12.0-16.0); LYMPH # 1.6 10*3/uL (1.3-4.4); LYMPH % 18.8 % (27.0-41.0); MEAN CELL VOLUME 96.3 fl (81.0-99.0); MEAN CORPUSCULAR HGB 29.5 pg (27.0-31.0); MEAN CORPUSCULAR HGB CONC 30.7 g/dl (33.0-37.0); MEAN PLATELET VOLUME 8.8 fl (9.6-12.3); MONO # 0.9 10*3/uL (0.1-1.0); MONO % 9.8 % (3.0-9.0); NEUT # 6.1 10*3/uL (2.3-7.9); NEUT % 70.2 % (47.0-73.0); NUCLEATED RED BLOOD CELL 0.5 % (0.0-0.0); PLATELET COUNT AUTOMATED 354 10*3/uL (130-400); RED BLOOD COUNT 3.25 10*6/uL (4.10-5.10); RED CELL DISTRI WIDTH 17.4 % (0-14.5); WHITE BLOOD COUNT 8.7 10*3/uL (4.8-10.8)
[2019-06-20 09:45] LABS: ALBUMIN 3.3 gm/dl (3.1-4.5); ALKALINE PHOSPHATASE 59 U/L (45-117); BUN 20 mg/dl (7-24); CHLORIDE 109 mmol/L (98-107); CREATININE 0.84 mg/dL (0.55-1.02); PHOSPHOROUS 2.5 mg/dL (2.5-4.9); POTASSIUM 3.9 mmol/L (3.5-5.1); SGOT/AST 21 IU/L (3-35); SGPT/ALT 25 U/L (12-78); SODIUM 143 mmol/L (136-145); TOTAL PROTEIN 6.5 gm/dL (6.4-8.2)
== END | disposition home or self-care (01) ==
LOC: LAB 09:11
PROVIDERS: Internal Medicine Hematology & Oncology
DX: C90.00 Multiple myeloma not having achieved remission (principal)

== ENCOUNTER → 2019-06-28 | Outpatient (CLI) | payer MEDICARE ==
[2019-06-28 14:34] LABS: ALBUMIN 3.4 gm/dl (3.1-4.5); ALKALINE PHOSPHATASE 64 U/L (45-117); BUN 28 mg/dl (7-24); CHLORIDE 106 mmol/L (98-107); CREATININE 1.14 mg/dL (0.55-1.02); POTASSIUM 3.8 mmol/L (3.5-5.1); SGOT/AST 19 IU/L (3-35); SGPT/ALT 26 U/L (12-78); SODIUM 141 mmol/L (136-145); TOTAL PROTEIN 6.8 gm/dL (6.4-8.2)
[2019-06-28 14:39] LABS: BILIRUBIN, DIRECT < 0.1 mg/dL (0.0-0.2); LDH 299 U/L (84-246)
[2019-06-28 14:45] LABS: BASO % 0.2 % (0.0-1.0); EOS % 0.2 % (1.0-4.0); HEMATOCRIT 31.9 % (37.0-47.0); HEMOGLOBIN 9.6 g/dl (12.0-16.0); LYMPH # 0.6 10*3/uL (1.3-4.4); LYMPH % 5.8 % (27.0-41.0); MEAN CELL VOLUME 96.1 fl (81.0-99.0); MEAN CORPUSCULAR HGB 28.9 pg (27.0-31.0); MEAN CORPUSCULAR HGB CONC 30.1 g/dl (33.0-37.0); MEAN PLATELET VOLUME 9.5 fl (9.6-12.3); MONO # 0.6 10*3/uL (0.1-1.0); MONO % 5.8 % (3.0-9.0); NEUT # 9.4 10*3/uL (2.3-7.9); NEUT % 86.9 % (47.0-73.0); PLATELET COUNT AUTOMATED 367 10*3/uL (130-400); RED BLOOD COUNT 3.32 10*6/uL (4.10-5.10); RED CELL DISTRI WIDTH 16.8 % (0-14.5); WHITE BLOOD COUNT 10.8 10*3/uL (4.8-10.8)
== END | disposition home or self-care (01) ==
LOC: LAB 14:01
PROVIDERS: Internal Medicine Hematology & Oncology
DX: C90.00 Multiple myeloma not having achieved remission (principal); Z79.899 Other long term (current) drug therapy

== ENCOUNTER → 2019-07-04 | Outpatient (CLI) | payer MEDICARE ==
[2019-07-04 09:19] LABS: BASO % 0.3 % (0.0-1.0); EOS # 0.1 10*3/uL (0.0-0.4); EOS % 0.7 % (1.0-4.0); HEMATOCRIT 30.4 % (37.0-47.0); HEMOGLOBIN 9.1 g/dl (12.0-16.0); LYMPH # 1.5 10*3/uL (1.3-4.4); LYMPH % 19.5 % (27.0-41.0); MEAN CELL VOLUME 96.2 fl (81.0-99.0); MEAN CORPUSCULAR HGB 28.8 pg (27.0-31.0); MEAN CORPUSCULAR HGB CONC 29.9 g/dl (33.0-37.0); MEAN PLATELET VOLUME 9.1 fl (9.6-12.3); MONO # 0.7 10*3/uL (0.1-1.0); MONO % 9.4 % (3.0-9.0); NEUT # 5.3 10*3/uL (2.3-7.9); NEUT % 69.4 % (47.0-73.0); NUCLEATED RED BLOOD CELL 0.5 % (0.0-0.0); PLATELET COUNT AUTOMATED 383 10*3/uL (130-400); RED BLOOD COUNT 3.16 10*6/uL (4.10-5.10); RED CELL DISTRI WIDTH 16.8 % (0-14.5); WHITE BLOOD COUNT 7.6 10*3/uL (4.8-10.8)
[2019-07-04 09:53] LABS: ALBUMIN 3.2 gm/dl (3.1-4.5); BUN 20 mg/dl (7-24); CHLORIDE 111 mmol/L (98-107); LDH 291 U/L (84-246); POTASSIUM 4.6 mmol/L (3.5-5.1); SGOT/AST 17 IU/L (3-35); SODIUM 144 mmol/L (136-145); TOTAL PROTEIN 6.4 gm/dL (6.4-8.2)
[2019-07-04 09:54] LABS: ALKALINE PHOSPHATASE 62 U/L (45-117); BILIRUBIN, DIRECT < 0.1 mg/dL (0.0-0.2); SGPT/ALT 23 U/L (12-78)
== END | disposition home or self-care (01) ==
LOC: LAB 08:54
PROVIDERS: Internal Medicine Hematology & Oncology
DX: C90.00 Multiple myeloma not having achieved remission (principal); Z79.899 Other long term (current) drug therapy

== ENCOUNTER → 2019-07-11 | Outpatient (CLI) | payer MEDICARE ==
[2019-07-11 10:47] LABS: BASO % 0.4 % (0.0-1.0); EOS # 0.1 10*3/uL (0.0-0.4); HEMATOCRIT 29.9 % (37.0-47.0); HEMOGLOBIN 8.9 g/dl (12.0-16.0); LYMPH # 0.8 10*3/uL (1.3-4.4); LYMPH % 10.6 % (27.0-41.0); MEAN CELL VOLUME 94.9 fl (81.0-99.0); MEAN CORPUSCULAR HGB 28.3 pg (27.0-31.0); MEAN CORPUSCULAR HGB CONC 29.8 g/dl (33.0-37.0); MEAN PLATELET VOLUME 9.2 fl (9.6-12.3); MONO # 0.7 10*3/uL (0.1-1.0); MONO % 8.8 % (3.0-9.0); NEUT # 6.1 10*3/uL (2.3-7.9); NEUT % 78.6 % (47.0-73.0); NUCLEATED RED BLOOD CELL 0.3 % (0.0-0.0); PLATELET COUNT AUTOMATED 347 10*3/uL (130-400); RED BLOOD COUNT 3.15 10*6/uL (4.10-5.10); RED CELL DISTRI WIDTH 16.9 % (0-14.5); WHITE BLOOD COUNT 7.7 10*3/uL (4.8-10.8)
[2019-07-11 10:58] LABS: ALBUMIN 3.2 gm/dl (3.1-4.5); ALKALINE PHOSPHATASE 58 U/L (45-117); BILIRUBIN, DIRECT < 0.1 mg/dL (0.0-0.2); BUN 24 mg/dl (7-24); CHLORIDE 107 mmol/L (98-107); CREATININE 1.05 mg/dL (0.55-1.02); LDH 280 U/L (84-246); POTASSIUM 4.1 mmol/L (3.5-5.1); SGOT/AST 22 IU/L (3-35); SGPT/ALT 24 U/L (12-78); SODIUM 141 mmol/L (136-145); TOTAL PROTEIN 6.4 gm/dL (6.4-8.2)
== END | disposition home or self-care (01) ==
LOC: LAB 09:59
PROVIDERS: Internal Medicine Hematology & Oncology
DX: C90.00 Multiple myeloma not having achieved remission (principal); I48.0 Paroxysmal atrial fibrillation; D50.9 Iron deficiency anemia, unspecified; Z79.899 Other long term (current) drug therapy

== ENCOUNTER → 2019-07-18 | Outpatient (CLI) | payer MEDICARE ==
[2019-07-18 10:13] LABS: BASO % 0.4 % (0.0-1.0); EOS # 0.1 10*3/uL (0.0-0.4); HEMATOCRIT 28.5 % (37.0-47.0); HEMOGLOBIN 8.6 g/dl (12.0-16.0); MEAN CELL VOLUME 95.3 fl (81.0-99.0); MEAN CORPUSCULAR HGB 28.8 pg (27.0-31.0); MEAN CORPUSCULAR HGB CONC 30.2 g/dl (33.0-37.0); MEAN PLATELET VOLUME 9.5 fl (9.6-12.3); MONO # 0.7 10*3/uL (0.1-1.0); MONO % 6.8 % (3.0-9.0); NEUT # 8.7 10*3/uL (2.3-7.9); NEUT % 82.2 % (47.0-73.0); NUCLEATED RED BLOOD CELL 0.2 % (0.0-0.0); PLATELET COUNT AUTOMATED 306 10*3/uL (130-400); RED BLOOD COUNT 2.99 10*6/uL (4.10-5.10); RED CELL DISTRI WIDTH 16.9 % (0-14.5); WHITE BLOOD COUNT 10.6 10*3/uL (4.8-10.8)
[2019-07-18 10:32] LABS: ALBUMIN 3.1 gm/dl (3.1-4.5); BILIRUBIN, DIRECT < 0.1 mg/dL (0.0-0.2); BUN 23 mg/dl (7-24); CHLORIDE 109 mmol/L (98-107); CREATININE 1.06 mg/dL (0.55-1.02); LDH 278 U/L (84-246); POTASSIUM 4.2 mmol/L (3.5-5.1); SGOT/AST 21 IU/L (3-35); SGPT/ALT 22 U/L (12-78); SODIUM 143 mmol/L (136-145); TOTAL PROTEIN 6.4 gm/dL (6.4-8.2)
[2019-07-18 10:33] LABS: ALKALINE PHOSPHATASE 59 U/L (45-117)
== END | disposition home or self-care (01) ==
LOC: LAB 09:03
PROVIDERS: Internal Medicine Hematology & Oncology
DX: C90.00 Multiple myeloma not having achieved remission (principal); Z79.899 Other long term (current) drug therapy

== ENCOUNTER → 2019-07-25 | Outpatient (CLI) | payer MEDICARE ==
[2019-07-25 10:53] LABS: BASO % 0.2 % (0.0-1.0); EOS # 0.1 10*3/uL (0.0-0.4); EOS % 0.6 % (1.0-4.0); HEMATOCRIT 30.2 % (37.0-47.0); HEMOGLOBIN 9.1 g/dl (12.0-16.0); LYMPH # 0.6 10*3/uL (1.3-4.4); LYMPH % 5.3 % (27.0-41.0); MEAN CORPUSCULAR HGB 28.6 pg (27.0-31.0); MEAN CORPUSCULAR HGB CONC 30.1 g/dl (33.0-37.0); MEAN PLATELET VOLUME 9.3 fl (9.6-12.3); MONO # 0.7 10*3/uL (0.1-1.0); MONO % 6.2 % (3.0-9.0); NEUT # 9.2 10*3/uL (2.3-7.9); PLATELET COUNT AUTOMATED 366 10*3/uL (130-400); RED BLOOD COUNT 3.18 10*6/uL (4.10-5.10); RED CELL DISTRI WIDTH 17.2 % (0-14.5); WHITE BLOOD COUNT 10.6 10*3/uL (4.8-10.8)
[2019-07-25 11:30] LABS: CHLORIDE 109 mmol/L (98-107); POTASSIUM 3.6 mmol/L (3.5-5.1); SODIUM 141 mmol/L (136-145)
[2019-07-25 11:36] LABS: ALBUMIN 3.3 gm/dl (3.1-4.5); ALKALINE PHOSPHATASE 67 U/L (45-117); BILIRUBIN, DIRECT < 0.1 mg/dL (0.0-0.2); BUN 23 mg/dl (7-24); CREATININE 1.06 mg/dL (0.55-1.02); LDH 285 U/L (84-246); SGOT/AST 15 IU/L (3-35); SGPT/ALT 21 U/L (12-78); TOTAL PROTEIN 6.6 gm/dL (6.4-8.2)
== END | disposition home or self-care (01) ==
LOC: LAB 00:32
PROVIDERS: Internal Medicine Hematology & Oncology
DX: C90.00 Multiple myeloma not having achieved remission (principal); Z79.899 Other long term (current) drug therapy

== ENCOUNTER → 2019-07-28 | Outpatient (CLI) | payer MEDICARE ==
[2019-07-28 11:47] LABS: BASO % 0.3 % (0.0-1.0); EOS % 0.2 % (1.0-4.0); HEMATOCRIT 32.2 % (37.0-47.0); HEMOGLOBIN 9.6 g/dl (12.0-16.0); LYMPH # 0.6 10*3/uL (1.3-4.4); LYMPH % 5.8 % (27.0-41.0); MEAN CORPUSCULAR HGB 28.9 pg (27.0-31.0); MEAN CORPUSCULAR HGB CONC 29.8 g/dl (33.0-37.0); MEAN PLATELET VOLUME 9.2 fl (9.6-12.3); MONO # 0.7 10*3/uL (0.1-1.0); MONO % 6.3 % (3.0-9.0); NEUT # 9.3 10*3/uL (2.3-7.9); NEUT % 86.8 % (47.0-73.0); PLATELET COUNT AUTOMATED 368 10*3/uL (130-400); RED BLOOD COUNT 3.32 10*6/uL (4.10-5.10); RED CELL DISTRI WIDTH 17.3 % (0-14.5); WHITE BLOOD COUNT 10.7 10*3/uL (4.8-10.8)
[2019-07-28 11:55] LABS: BILIRUBIN NEGATIVE (NEGATIVE); BLOOD NEGATIVE (NEGATIVE); CLARITY CLEAR (CLEAR); COLOR YELLOW (YELLOW); GLUCOSE NEGATIVE (NEGATIVE); KETONE NEGATIVE (NEGATIVE); LEUKO ESTERASE NEGATIVE (NEGATIVE); NITRITE NEGATIVE (NEGATIVE); SPECIFIC GRAVITY 1.015 (1.005-1.030); UROBILINOGEN 0.2 E.U./dl (0.2-1.0)
[2019-07-28 12:08] LABS: BACTERIA 1+; EPITHELIAL CELLS 0-2; WBC 0-2 wbc/hpf (0-5)
== END | disposition home or self-care (01) ==
LOC: RESCLI 00:39
PROVIDERS: Internal Medicine Nephrology
DX: I48.0 Paroxysmal atrial fibrillation (principal); M54.32 Sciatica, left side; M06.9 Rheumatoid arthritis, unspecified; J30.89 Other allergic rhinitis; E55.9 Vitamin D deficiency, unspecified; K21.9 Gastro-esophageal reflux disease without esophagitis; J44.9 Chronic obstructive pulmonary disease, unspecified; D47.2 Monoclonal gammopathy; Z79.899 Other long term (current) drug therapy; Z88.8 Allergy status to other drugs, medicaments and biological substances

== ENCOUNTER → 2019-10-05 | Outpatient (CLI) | payer MEDICARE | END | disposition home or self-care (01) | LOC: RESCLI 01:04 | DX: I48.0 Paroxysmal atrial fibrillation (principal); M54.32 Sciatica, left side; M06.9 Rheumatoid arthritis, unspecified; J30.89 Other allergic rhinitis; E55.9 Vitamin D deficiency, unspecified; K21.9 Gastro-esophageal reflux disease without esophagitis; J44.9 Chronic obstructive pulmonary disease, unspecified; D47.2 Monoclonal gammopathy; E04.9 Nontoxic goiter, unspecified; R60.9 Edema, unspecified; Z79.899 Other long term (current) drug therapy; Z90.89 Acquired absence of other organs ==

== ENCOUNTER → 2019-10-11 | Outpatient (CLI) | payer MEDICARE ==
[2019-10-11 10:28] LABS: BASO % 0.2 % (0.0-1.0); EOS # 0.1 10*3/uL (0.0-0.4); EOS % 0.8 % (1.0-4.0); HEMATOCRIT 33.5 % (37.0-47.0); HEMOGLOBIN 9.9 g/dl (12.0-16.0); LYMPH # 1.1 10*3/uL (1.3-4.4); LYMPH % 9.9 % (27.0-41.0); MEAN CELL VOLUME 97.1 fl (81.0-99.0); MEAN CORPUSCULAR HGB 28.7 pg (27.0-31.0); MEAN CORPUSCULAR HGB CONC 29.6 g/dl (33.0-37.0); MEAN PLATELET VOLUME 9.8 fl (9.6-12.3); MONO # 0.6 10*3/uL (0.1-1.0); MONO % 5.7 % (3.0-9.0); NEUT # 9.2 10*3/uL (2.3-7.9); NEUT % 82.9 % (47.0-73.0); NUCLEATED RED BLOOD CELL 0.3 % (0.0-0.0); PLATELET COUNT AUTOMATED 336 10*3/uL (130-400); RED BLOOD COUNT 3.45 10*6/uL (4.10-5.10); RED CELL DISTRI WIDTH 15.7 % (0-14.5); WHITE BLOOD COUNT 11.1 10*3/uL (4.8-10.8)
== END | disposition home or self-care (01) ==
LOC: LAB 02:35
PROVIDERS: Internal Medicine
DX: I48.0 Paroxysmal atrial fibrillation (principal); E04.9 Nontoxic goiter, unspecified

== ENCOUNTER → 2019-10-25 | Outpatient (CLI) | payer MEDICARE | END | disposition home or self-care (01) | LOC: US 00:18 | DX: E04.9 Nontoxic goiter, unspecified (principal) ==

== ENCOUNTER → 2019-10-31 | Outpatient (CLI) | payer MEDICARE | END | disposition home or self-care (01) | LOC: RAD 17:10 | DX: C90.00 Multiple myeloma not having achieved remission (principal) ==

== ENCOUNTER 2019-11-13 13:48 | Emergency (ER) | payer MEDICARE ==
[~2019-11-13] VITALS: Ht 170.1 cm; Wt 68.0 kg
[2019-11-13 14:57] LABS: BILIRUBIN NEGATIVE (NEGATIVE); BLOOD NEGATIVE (NEGATIVE); CLARITY CLEAR (CLEAR); COLOR YELLOW (YELLOW); GLUCOSE NEGATIVE (NEGATIVE); KETONE NEGATIVE (NEGATIVE)
[2019-11-13 14:58] LABS: LEUKO ESTERASE NEGATIVE (NEGATIVE); NITRITE NEGATIVE (NEGATIVE); UROBILINOGEN 0.2 E.U./dl (0.2-1.0)
[2019-11-13 14:59] LABS: EPITHELIAL CELLS 16-20
[2019-11-13 15:19] LABS: BASO % 0.3 % (0.0-1.0); EOS # 0.1 10*3/uL (0.0-0.4); EOS % 0.7 % (1.0-4.0); HEMATOCRIT 31.3 % (37.0-47.0); HEMOGLOBIN 9.4 g/dl (12.0-16.0); LYMPH # 0.7 10*3/uL (1.3-4.4); LYMPH % 5.2 % (27.0-41.0); MEAN CELL VOLUME 96.6 fl (81.0-99.0); MEAN PLATELET VOLUME 9.5 fl (9.6-12.3); MONO # 0.7 10*3/uL (0.1-1.0); MONO % 5.3 % (3.0-9.0); NEUT # 12.3 10*3/uL (2.3-7.9); NEUT % 87.6 % (47.0-73.0); PLATELET COUNT AUTOMATED 362 10*3/uL (130-400); RED BLOOD COUNT 3.24 10*6/uL (4.10-5.10); RED CELL DISTRI WIDTH 15.1 % (0-14.5)
[2019-11-13 15:31] LABS: ACT PARTIAL THROMBO TIME 23.9 SECONDS (20.0-32.1); INTERNATIONAL NORM RATIO 0.9 (2.0-3.5)
[2019-11-13 15:36] LABS: ALBUMIN 3.3 gm/dl (3.1-4.5); ALKALINE PHOSPHATASE 63 U/L (45-117); BUN 24 mg/dl (7-24); CHLORIDE 107 mmol/L (98-107); CREATININE 0.93 mg/dL (0.55-1.02); LDH 317 U/L (84-246); SGOT/AST 20 IU/L (3-35); SGPT/ALT 26 U/L (12-78); SODIUM 141 mmol/L (136-145); TOTAL PROTEIN 6.8 gm/dL (6.4-8.2); TROPONIN I < 0.015 ng/ml (<0.045)
== END 2019-11-13 16:40 | disposition home or self-care (01) ==
LOC: ED 13:48
PROVIDERS: Emergency Medicine
DX: R06.02 Shortness of breath (principal); R05 Cough; R09.3 Abnormal sputum; M06.9 Rheumatoid arthritis, unspecified; E03.9 Hypothyroidism, unspecified; M19.90 Unspecified osteoarthritis, unspecified site; I48.0 Paroxysmal atrial fibrillation; G43.909 Migraine, unspecified, not intractable, without status migrainosus; M81.0 Age-related osteoporosis without current pathological fracture; Z79.899 Other long term (current) drug therapy; Z90.710 Acquired absence of both cervix and uterus; Z87.891 Personal history of nicotine dependence

== ENCOUNTER 2019-11-21 15:05 | Emergency (ER) | payer MEDICARE ==
[~2019-11-21] VITALS: Ht 167.6 cm; Wt 68.0 kg
[~2019-11-21 15:05] MED LIST changes: -ALBUTEROL0.09 MG/Ac; -FUROSEMIDE40 MG PO; +LASIX80 MG PO; +PROVENTIL HFA6.7 GM INH
== END 2019-11-21 16:28 | disposition home or self-care (01) ==
LOC: ED 15:05
DX: S81.811A Laceration without foreign body, right lower leg, initial encounter (principal); R04.0 Epistaxis; R51 Headache; G43.909 Migraine, unspecified, not intractable, without status migrainosus; Z79.899 Other long term (current) drug therapy; Z90.710 Acquired absence of both cervix and uterus; Z87.891 Personal history of nicotine dependence; W01.198A Fall on same level from slipping, tripping and stumbling with subsequent striking against other object, initial encounter; Y93.89 Activity, other specified; Y92.092 Bedroom in other non-institutional residence as the place of occurrence of the external cause; Y99.8 Other external cause status

== ENCOUNTER 2019-11-23 09:02 | Inpatient (IN) | payer MEDICARE ==
[~2019-11-23] VITALS: Ht 170.2 cm; Wt 70.1 kg
[2019-11-23 09:05] VITALS: BP 136/70
[2019-11-23 09:55] LABS: ACT PARTIAL THROMBO TIME 25.2 SECONDS (20.0-32.1)
[2019-11-23 10:02] LABS: ALBUMIN 2.7 gm/dl (3.1-4.5); CREATININE 1.25 mg/dL (0.55-1.02); POTASSIUM 2.7 mmol/L (3.5-5.1); TOTAL PROTEIN 6.7 gm/dL (6.4-8.2)
[2019-11-23 10:06] LABS: TROPONIN I 2.84 ng/ml (<0.045)
[2019-11-23 10:20] VITALS: BP 114/58
[2019-11-23 10:26] LABS: ABG BASE EXCESS 1.3 mmol/L (-2.0-2.0); ARTERIAL BLOOD GAS PH 7.489 (7.35-7.45)
[2019-11-23 12:26] LABS: HEMATOCRIT 30.3 % (37.0-47.0); MEAN CELL VOLUME 92.4 fl (81.0-99.0); MEAN CORPUSCULAR HGB 27.7 pg (27.0-31.0); MEAN PLATELET VOLUME 9.7 fl (9.6-12.3); NUCLEATED RED BLOOD CELL 0.1 10*3/uL (0.0-0.0); NUCLEATED RED BLOOD CELL 0.5 % (0.0-0.0); PLATELET COUNT AUTOMATED 216 10*3/uL (130-400); RED BLOOD COUNT 3.28 10*6/uL (4.10-5.10); RED CELL DISTRI WIDTH 15.3 % (0-14.5); WHITE BLOOD COUNT 10.1 10*3/uL (4.8-10.8)
[2019-11-23 12:44] LABS: TOTAL CELLS COUNTED 100 #CELLS
[2019-11-23 12:45] VITALS: BP 96/46
[2019-11-23 12:45] LABS: PLATELET SUFFICIENCY NORMAL (NORMAL); POLYCHROMASIA SLIGHT
[2019-11-23 14:09] VITALS: BP 95/44
--- NOTE | 2019-11-23 14:09 | NUR ---
PATIENT DEMOGRAPHICS FAXED TO [facility] BY BOY JAMES OF PATIENT BEING TESTED FOR COVID.
--- NOTE | 2019-11-23 14:10 | NUR ---
WOUND PICTURES TAKEN AND CAMERA PLACED INTO THE BASKET.
--- NOTE | 2019-11-23 14:40 | NUR ---
HEPARIN ORDERED FOR PATIENT. DR NAIR ASKED ABOUT THIS ORDER. HE STATES THAT HE DID NOT ORDER THIS AND WAS CONCERNED THAT IT HAD TO DO WITH PATIENTS RENAL FUNCTION. ASKED IF HE THOUGHT PATIENT WAS A CONCERN FOR "NSTEMI" CRITERIA WHEN HE WAS CONCERNED ABOUT THE RENAL FUNCTION.
--- NOTE | 2019-11-23 15:57 | NUR ---
DR. RAMOS AWARE OF CONSULT.
--- NOTE | 2019-11-23 16:12 | NUR ---
WAS WAITING FOR ROOM TO BE CLEANED. CALLED 5TH FLOOR AND THEY STATES ROOM IS READY. PATIENT TAKEN TO FLOOR BY THIS NURSE.
[2019-11-23 16:48] VITALS: BP 108/88
--- NOTE | 2019-11-23 16:48 | NUR ---
A 79, admitted to , under the services of AMANDA Glover DO with a diagnosis of pneumonia, NSTEMI. Chief complaint is increasing shortness of breath, pain all over andchange in mental status. Patient arrived via stretcher from ER. Monitor applied. Initial assessment completed. Vital signs taken and recorded. AMANDA GLOVER DO notified of admission to the unit. Orders received. See assessment for past medical history, medications and allergies. Patient oriented to unit. [facility] visitation policy reviewed. Clothing/patient valuable form completed. all information was obtained from [email or web address] Murray
--- NOTE | 2019-11-23 16:53 | NUR ---
PATIENT TAKEN TO 5TH FLOOR AT THIS TIME. BEDSIDE REPORT GIVEN TO KADEN. BOTH ANTIBIOTICS INFUSED. PATIENT STILL ROLLING IN BED APPEARING COMFORTABLE ONLY ON HER LEFT SIDE. NO CHANGE IN MENTAL STATUS SINCE SHE CAME IN. APPEARS IN NO DISTRESS. WILL CONTINUE TO MONITOR.
[2019-11-23] MEDS ORDERED: PROTONIX40 MG PO (17:08)
[2019-11-23] MEDS ORDERED: GOOD SENSE ASP325 MG PO (17:52)
[2019-11-23] MEDS ORDERED: TYLENOL EXTRA500 MG PO (17:53)
--- NOTE | 2019-11-23 18:45 | NUR ---
DR. MARCELO AND DR. FAIR NOTIFIED OF CONSULTS.
[2019-11-23 20:00] VITALS: BP 117/64
--- NOTE | 2019-11-23 20:00 | NUR ---
SPOKE WITH PATIENTS DAUGHTER HELLEN SHE STATED THAT THE PATIENTS ONCOLOGIST WAS ANNE HEWITT AT [place].
--- NOTE | 2019-11-23 20:18 | NUR ---
NOTIFIED DR. WYMAN AT THIS TIME THAT PATIENT WAS UNABLE TO TAKE PO POTASSIUM. STATED PATIENT ATTEMPTS TO BE COOPERATIVE BUT IT TAKES MUCH ENCOURAGEMENT. NOTIFIED HIM THAT PATIENT CHEWED UP THE BABY ASPIRIN BUT WITH MUCH ENCOURAGEMENT, COULD NOT GET POTASSIUM. ORDER RECIEVED FOR 1 K RUN. ALSO NOTIFIED HIM THAT PATIENT'S MEWS SCORE IS 5. PATIENTS TEMP IS 99.4 AND SHE IS TACHYCARDIC AT 118. PATIENTS HEART RATE WENT DOWN EARLIER WHEN TEMP CAME DOWN.
--- NOTE | 2019-11-23 20:49 | NUR ---
PRN TYLENOL GIVEN FOR PT WITH AXILLARY TEMP OF 99.4, WHEN STICKER TEMP STUCK TO FOREHEAD, IT READ 101 AT THE GREEN LINE. PATIENT TAKES PILLS ONE AT A TIME WITH MUCH COAXING. IV FLUIDS INFUSING, POTASSIUM INFUSING WITHOUT DIFFICULY, HEPARIN INFUSING WELL IN SEPERATE SITE.
--- NOTE | 2019-11-23 23:16 | NUR ---
PRN TYLENOL EFFECTIVE, PT'S AXILLARY TEMP 97.9. PATIENT NOT KEEPING TEMPORAL TEMPERATURE STRIP ON FOREHEAD
--- NOTE | 2019-11-23 23:40 | NUR ---
HEPARIN DRIP PLACED ON HOLD FOR 1 HOUR PER POLICY PTT CAME BACK AT 99.6.
--- NOTE | 2019-11-23 23:55 | NUR ---
NOTIFIED DR. WYMAN OF PATIENTS UPDATED VITALS. NOTIFIED OF CRITICAL PTT AND THAT HEPARIN IS ON HOLD FOR 1 HOUR. ALSO NOTIFIED HIM PATIENT HAD SMALL EPISODE OF INCONTINENCE BUT SHE HAD A LITER OF FLUID IN. HE STATED WE CAN BLADDER SCAN HER, AND IF SHE HAS GREATER THAN 500 WE CAN PUT A LAIRD IN HER, BUT TO NOTIFY HIM IF WE DO
[2019-11-24] VITALS (7 sets, daily range): BP systolic 94–139; BP diastolic 48–70
--- NOTE | 2019-11-24 00:40 | NUR ---
HEPARIN DRIP RESTARTED AT 9 UNITS/KG/HR
--- NOTE | 2019-11-24 00:59 | NUR ---
PATIENT UP TO BEDSIDE COMMODE WITH 2 ASSIST. 500CC OF DARK CLOUDY ROSALIA URINE OUT. UA/UC SENT
[2019-11-24 01:05] LABS: BILIRUBIN NEGATIVE (NEGATIVE); BLOOD TRACE-INTACT (NEGATIVE); CLARITY SL CLOUDY (CLEAR); COLOR YELLOW (YELLOW); GLUCOSE NEGATIVE (NEGATIVE); KETONE 1+ (NEGATIVE); LEUKO ESTERASE NEGATIVE (NEGATIVE); NITRITE NEGATIVE (NEGATIVE); UROBILINOGEN 0.2 E.U./dl (0.2-1.0)
[2019-11-24 01:10] LABS: BACTERIA 3+
--- NOTE | 2019-11-24 01:31 | NUR ---
PATIENT RESTING QUIETLY. 2L NC INTACT. HEPARIN INFUSING PER POLICY INTO LEFT AC. WILL MONITOR
--- NOTE | 2019-11-24 05:23 | NUR ---
24 HR chart check completed.
--- NOTE | 2019-11-24 06:10 | NUR ---
GATE TECHNICIAN CALLED AT THIS THIS TIME, PATIENT CALLED OUT TO GO TO THE BATHROOM. WHEN TRYING TO GET HER UP, PATIENT WENT INTO SVT 200'S. PATIENT ASYMPTOMATIC, MADE AWARE. STATED TO GIVE THE PATIENT HER METOPROLOL. PATIENTS OTHER VITALS STABLE. BP- 126/58, 97% ROOM AIR (2L ADDED AT THIS TIME FOR ELEVATD HEART RATE). PATIENT STILL REMAINS CONFUSED, BUT APPEARS IN NO DISTRESS AND STATES SHE DOESN'T FEEL ANYTHING WRONG.
--- NOTE | 2019-11-24 06:19 | NUR ---
TOPROL XL GIVEN EARLY AT THIS TIME PER ORDERS GIVEN BY DR WYMAN DUE TO HIGH HEART RATE.
--- NOTE | 2019-11-24 06:27 | NUR ---
PAGED DR. SYKES AT THIS TIME.
--- NOTE | 2019-11-24 06:30 | NUR ---
ORDER RECIEVED FROM DR. WYMAN FOR PATIENT TO HAVE IV 5MG CARDIZEM X1. NOTIFIED HIM THAT DR. SYKES WAS PAGED.
--- NOTE | 2019-11-24 06:33 | NUR ---
SPOKE WITH DR. SYKES. NOTIFIED HIM THAT PATIENT WAS IN SINUS ARRHYTHMIA ALL NIGHT AND MAINTAING 90'S-100'S. PATIENT GOT UP TO BEDSIDE COMMODE AND WENT TO 200'S SVT. PATIENT ASYMPTOMATIC. PATIENT RANGING FROM 160-200. NOTIFIED HIM DR. WYMAN ORDERED 5MG OF CARDIZEM IV PUSH NOW. DR. SYKES STATED TO CHANGE HER MEDICATION TO 25MG OF LOPRESSOR BID AND TO START TONIGHT AND THE IV CARDIZEM 5MG PUSH IS OK TO GIVE NOW. AND HE STATED DR. PACHECO WILL SEE THE PATIENT THIS MORNING AND ADJUST MEDS ACCORDINGLY
[2019-11-24 06:55] LABS: BASO % 0.3 % (0.0-1.0); EOS # 0.1 10*3/uL (0.0-0.4); EOS % 0.3 % (1.0-4.0); HEMATOCRIT 27.8 % (37.0-47.0); LYMPH # 0.8 10*3/uL (1.3-4.4); LYMPH % 5.4 % (27.0-41.0); MEAN CELL VOLUME 93.6 fl (81.0-99.0); MEAN CORPUSCULAR HGB CONC 30.9 g/dl (33.0-37.0); MEAN PLATELET VOLUME 9.4 fl (9.6-12.3); MONO # 1.2 10*3/uL (0.1-1.0); NEUT # 12.3 10*3/uL (2.3-7.9); NEUT % 85.5 % (47.0-73.0); PLATELET COUNT AUTOMATED 173 10*3/uL (130-400); RED BLOOD COUNT 2.97 10*6/uL (4.10-5.10); RED CELL DISTRI WIDTH 15.3 % (0-14.5); WHITE BLOOD COUNT 14.3 10*3/uL (4.8-10.8)
--- NOTE | 2019-11-24 07:12 | NUR ---
PATIENT BROKE FROM SVT 200'S AND PATIENT BACK DOWN 100'S-110'S SINUS ARRHYTHMIA, PATIENT REMAINS ASYMPTOMATIC
[2019-11-24 07:24] LABS: ALBUMIN 2.5 gm/dl (3.1-4.5); ALKALINE PHOSPHATASE 105 U/L (45-117); BUN 18 mg/dl (7-24); CHLORIDE 112 mmol/L (98-107); CHOLESTEROL 138 mg/dL (<200); CPK 245 U/L (26-192); CREATININE 0.92 mg/dL (0.55-1.02); HDL CHOLESTEROL 13 mg/dl (40-60); LDL CHOLESTEROL 65 mg/dL (9-159); PHOSPHOROUS 2.2 mg/dL (2.5-4.9); POTASSIUM 3.1 mmol/L (3.5-5.1); SGOT/AST 39 IU/L (3-35); SGPT/ALT 20 U/L (12-78); SODIUM 142 mmol/L (136-145); TOTAL PROTEIN 6.6 gm/dL (6.4-8.2); TRIGLYCERIDES 301 mg/dl (<150); VLDL CHOLESTEROL 60 mg/dL (6-40)
--- NOTE | 2019-11-24 08:00 | NUR ---
Increased heparin gtt per protocol by 2 units/kg/mg,7.8 ml/hr for APTT 44.3.Initial assessment complete.lungs dim,2lnc,spo2 100%. Pt incontinent for loose bm.Pericare provided. Repositioned for comfort.Breakfast ordered.Voices no other needs at this time. Call light in reach.
--- NOTE | 2019-11-24 08:09 | NUR ---
NATANAEL DESAI [id number] Please refer to the physician's history and physical for past medical history, comorbid conditions, and allergies. Diagnosis: PNEUMONIA SEVERE SEPSIS Ryan Score: 13,MODERATE RISK WOUND DESCRIPTIONS: Wound Number: 1 Location of the wound: right anterior dawn Type of wound: laceration Thickness: Partial Size: 5.5cm x 7.0cm x 0.1cm Tunneling: none Undermining: none Sinus Tract: none Presence of Exudate: none Amount: None Color: Red Odor: None Periwound Skin Appearance: Normal Wound edges: approximated with 7 sutures should be removed in 10/12 days from 11/21/19 Pain (associated with wound): none at time of assessment How does patient state this happened? pt stated this happened a couple of days ago and she stated that her daughter scheduled her a wound care center appointment I spoke with Malgorzata from the wound care center and she stated she didn't see any appointment for her but will look into it Wound Number: 2 Location of the wound: right great toe Type of wound: callus Thickness: Partial Size: 0.5cm x 0.7cm x <0.1cm Tunneling: none Undermining: none Sinus Tract: none Presence of Exudate: none Amount: None Color: Red Odor: None Periwound Skin Appearance: Normal Wound edges: approximated Pain (associated with wound): none at time of assessment How does patient state this happened? pt unsure when this started Wound Number: 2 Location of the wound: right 2nd toe Type of wound: callus Thickness: Partial Size: 0.2cm x 0.2cm x <0.1cm Tunneling: none Undermining: none Sinus Tract: none Presence of Exudate: none Amount: None Color: Red Odor: None Periwound Skin Appearance: Normal Wound edges: approximated Pain (associated with wound): none at time of assessment How does patient state this happened? pt unsure when this started Wound Number: 4 Location of the wound: right hand Type of wound: skin tear Thickness: Partial Size: 0.7cm x 0.7cm x 0.1cm Tunneling: none Undermining: none Sinus Tract: none Presence of Exudate: none Amount: None Color: Red Odor: None Periwound Skin Appearance: Normal Wound edges: approximated Pain (associated with wound): none at time of assessment How does patient state this happened? pt said this was from her fall Surface the patient is resting on: Isoflex SKIN PREVENTION RECOMMENDATION: 1. Pressure redistribution support surface as appropriate 2. Elevate heels 3. Remove boots/TEDS every shift and reapply 4. Head of bed 30 degrees as tolerated 5. Assess nutrition and hydration 6. Manage moisture 7. Avoid the use of containment devices while in bed 8. Use absorptive products on surfaces limit layers of linens on bed 9. Turn and reposition every 1-2 hours in bed and every 1 hour in chair as tolerated 10. Weight shifts every 15 minutes while up in chair 11. Offloading with pillows or device to keep heels elevated off bed 12. Monitor skin at least every shift 13. Inspect under medical devices twice a day WOUND TREATMENT RECOMMENDATIONS: Partial thickness guidelines: Cleanse right anterior dawn and right hand with nss and apply bactracin ointment bid and cover with dsd daily and prn for soiling. Apply sureprep to right great toe and right 2nd toe and cover with bandaid. Heel raiser pro boots to bilateral feet while in bed. May remove sutures 12/01/19-12/03/19 to right anterior dawn
--- NOTE | 2019-11-24 08:24 | NUR ---
NATANAEL DESAI [id number] Please refer to the physician's history and physical for past medical history, comorbid conditions, and allergies. Diagnosis: PNEUMONIA SEVERE SEPSIS Ryan Score: 13,MODERATE RISK WOUND DESCRIPTIONS: Wound Number: 1 Location of the wound: right anterior dawn Type of wound: laceration Thickness: Partial Size: 5.5cm x 7.0cm x 0.1cm Tunneling: none Undermining: none Sinus Tract: none Presence of Exudate: none Amount: None Color: Red Odor: None Periwound Skin Appearance: Normal Wound edges: approximated with 7 sutures should be removed in 10/12 days from 11/21/19 Pain (associated with wound): none at time of assessment How does patient state this happened? pt stated this happened a couple of days ago and she stated that her daughter scheduled her a wound care center appointment I spoke with Malgorzata from the wound care center and she stated she didn't see any appointment for her but will look into it Wound Number: 2 Location of the wound: right great toe Type of wound: callus Thickness: Partial Size: 0.5cm x 0.7cm x <0.1cm Tunneling: none Undermining: none Sinus Tract: none Presence of Exudate: none Amount: None Color: Red Odor: None Periwound Skin Appearance: Normal Wound edges: approximated Pain (associated with wound): none at time of assessment How does patient state this happened? pt unsure when this started Wound Number: 3 Location of the wound: right 2nd toe Type of wound: callus Thickness: Partial Size: 0.2cm x 0.2cm x <0.1cm Tunneling: none Undermining: none Sinus Tract: none Presence of Exudate: none Amount: None Color: Red Odor: None Periwound Skin Appearance: Normal Wound edges: approximated Pain (associated with wound): none at time of assessment How does patient state this happened? pt unsure when this started Wound Number: 4 Location of the wound: right hand Type of wound: skin tear Thickness: Partial Size: 0.7cm x 0.7cm x 0.1cm Tunneling: none Undermining: none Sinus Tract: none Presence of Exudate: none Amount: None Color: Red Odor: None Periwound Skin Appearance: Normal Wound edges: approximated Pain (associated with wound): none at time of assessment How does patient state this happened? pt said this was from her fall Surface the patient is resting on: Isoflex SKIN PREVENTION RECOMMENDATION: 1. Pressure redistribution support surface as appropriate 2. Elevate heels 3. Remove boots/TEDS every shift and reapply 4. Head of bed 30 degrees as tolerated 5. Assess nutrition and hydration 6. Manage moisture 7. Avoid the use of containment devices while in bed 8. Use absorptive products on surfaces limit layers of linens on bed 9. Turn and reposition every 1-2 hours in bed and every 1 hour in chair as tolerated 10. Weight shifts every 15 minutes while up in chair 11. Offloading with pillows or device to keep heels elevated off bed 12. Monitor skin at least every shift 13. Inspect under medical devices twice a day WOUND TREATMENT RECOMMENDATIONS: Partial thickness guidelines: Cleanse right anterior dawn and right hand with nss and apply bactracin ointment bid and cover with dsd bid and prn for soiling. Apply sureprep to right great toe and right 2nd toe and cover with bandaid. Heel raiser pro boots to bilateral feet while in bed. May remove sutures 12/01/19-12/03/19 to right anterior dawn
--- NOTE | 2019-11-24 09:26 | NUR ---
Statistics Intern unable to reach patient by phone. Called to speak with daughter, Geni. Daughter states patient lives at home with her boyfriend. There are 2 steps in the home. Physician: Dr. Ovidio Soliman, resident clinic Pharmacy: [facility], or [facility] Home health services: none Patient's level of ADLs: MINIMAL ASSIST Patient has working utilities: yes DME: wheeled walker Follow-up physician's appointment after d/c: will be made by the hospitalist nurse director upon discharge Does patient want to access PORTAL?: no Discharge plan discussed with patient's daughter. She lives at home with her boyfriend. She is independent in her ADLs and normally ambulates with a wheeled walker. Discussed discharge planning and daughter would like patient referred to [facility]. She states she is already on the list there. account planner notified. ZEB PUENTE
--- NOTE | 2019-11-24 11:20 | NUR ---
DR COOK ROUNDED AND SEEN PT. ORDERS RECIEVED.
--- NOTE | 2019-11-24 12:29 | NUR ---
Nutritional Support Services Note: Pt has a wound to LLE. Appetite is good fo meals. Ht.5'7 Wt.145# IBW [id number]. Cardiac diet as ordered. Recommend Ensure po ITD with meals. Geni León Rdn Ld
[2019-11-24 17:09] LABS: BUN 17 mg/dl (7-24); CHLORIDE 114 mmol/L (98-107); CREATININE 1.03 mg/dL (0.55-1.02); POTASSIUM 2.9 mmol/L (3.5-5.1); SODIUM 142 mmol/L (136-145)
--- NOTE | 2019-11-24 17:35 | NUR ---
DR RAMOS NOTIFIED OF POTASSIUM 2.9. ORDERS RECIEVED.
--- NOTE | 2019-11-24 20:00 | NUR ---
PT SITTING UP IN BED EATING DINNER, ALERT AND ORIENTED TO PERSON AND PLACE. RESP NONLABORED. NO ACUTE DISTRESS NOTED. NO COMPLAINTS VOICED. DENIES ANY CHEST PAIN OR DISCOMFORT AT THIS TIME. HEPLOCKS PATENT.
[2019-11-25] VITALS (14 sets, daily range): BP systolic 108–166; BP diastolic 67–89
--- NOTE | 2019-11-25 | NUR ---
PT RESTING IN BED AWAKE AND ALERT, CONFUSED. RESP NONLABORED. NO ACUTE DISTRESS NOTED. NO COMPLAINTS VOICED. HEPLOCKS PATENT.
--- NOTE | 2019-11-25 05:50 | NUR ---
DR WYMAN NOTIFIED OF BLOOD CULTURE RESULTS GNB.
[2019-11-25 06:15] LABS: HEMATOCRIT 24.1 % (37.0-47.0); LYMPH # 0.6 10*3/uL (1.3-4.4); LYMPH % 3.9 % (27.0-41.0); MEAN CELL VOLUME 92.7 fl (81.0-99.0); MEAN CORPUSCULAR HGB 28.1 pg (27.0-31.0); MEAN CORPUSCULAR HGB CONC 30.3 g/dl (33.0-37.0); MEAN PLATELET VOLUME 10.4 fl (9.6-12.3); MONO # 1.2 10*3/uL (0.1-1.0); MONO % 8.3 % (3.0-9.0); NEUT # 12.2 10*3/uL (2.3-7.9); NEUT % 87.3 % (47.0-73.0); PLATELET COUNT AUTOMATED 199 10*3/uL (130-400); RED CELL DISTRI WIDTH 15.4 % (0-14.5)
[2019-11-25 06:34] LABS: CHLORIDE 112 mmol/L (98-107)
[2019-11-25 06:42] LABS: ALBUMIN 2.2 gm/dl (3.1-4.5); ALKALINE PHOSPHATASE 85 U/L (45-117); BUN 15 mg/dl (7-24); PHOSPHOROUS 1.4 mg/dL (2.5-4.9); SGOT/AST 31 IU/L (3-35); SGPT/ALT 22 U/L (12-78); TOTAL PROTEIN 6.3 gm/dL (6.4-8.2)
[2019-11-25 06:58] LABS: SODIUM 141 mmol/L (136-145)
[2019-11-25 06:59] LABS: POTASSIUM 4.5 mmol/L (3.5-5.1)
--- NOTE | 2019-11-25 07:40 | NUR ---
PHYSICAL THERAPY Screen received pt admitted from home with sepsis,pneumonia,NSTEMI. Rapid COVID test negative awaiting swab. Pt admitted to Covid unit per nsg retread supervisor will defer therapy/intervention at this time due to pending swab test. Will follow as per MD for PT and medically cleared/appropriate, thank you. Miranda Keith PT
--- NOTE | 2019-11-25 09:52 | NUR ---
When medically stable and accepted she will be discharged to [facility]. protective services case worker/transportation planner following.
--- NOTE | 2019-11-25 13:41 | NUR ---
SPOKE WITH RADIOLOGY, THEY STATED THAT THEY CAN NOT DO THE US RETROPERITONEAL UNTIL THE PATIENT'S COVID TEST HAS RESULTED. WE ARE TO CALL RADIOLOGY WHEN WE HAVE THOSE RESULTS.
--- NOTE | 2019-11-25 15:13 | NUR ---
DUE TO PT'S PERIOD OF CONFUSIONS I CALLED PT'S DAUGHTER TO GET CONSENT TO HANG BLOOD. PT'S DAUGHTER WAS OKAY WITH THIS AND A TREATMENT CONSENT WAS FILLED OUT AND PLACED IN CHART. PT'S DAUGHTER ALSO STATED THAT HER MOTHER HAD RECEIVED DARATUMUMAB (DARZALEX) 3-4 MONTHS AGO AND SHE KNOWS IT CAN CAUSE A PROBLEM WITH THE BLOOD TYPE MATCH. SPOKE WITH LAB AND THEY VERIFIED THAT THEY ALREADY KNEW ABOUT THIS AND THEY WERE ABLE TO VERIFY A UNIT OF BLOOD SUCCESSFULLY.
--- NOTE | 2019-11-25 15:50 | NUR ---
Informed consent obtained from family for Blood transfussion by Dr. NOBLE. Patient identified by arm band. Vital signs recorded. Blood unit number verified by 2 R.N.'s. I.V. site satisfactory. Unit 1 started at a KVO rate with Normal Saline. PT IS RESTING COMFORTABLY AT THIS TIME WITH NO COMPLAINTS. NAIN BYERS
--- NOTE | 2019-11-25 17:08 | NUR ---
24 HR chart check completed.
--- NOTE | 2019-11-25 18:40 | NUR ---
BLOOD TRANSFUSION COMPLETED AT 1840. PT TOLERATED BLOOD TRANSFUSION AND HAS NO QUESTIONS AT THIS TIME.
--- NOTE | 2019-11-25 20:00 | NUR ---
SINUS ARRHYTHMIA PER CM. HRR 105 SME=446 AND QT=0.32 SECONDS
--- NOTE | 2019-11-25 20:12 | NUR ---
PATIENT MEDICATED WITH TYLENOL D/T PATIENT MOANING IN PAIN AND STATED THAT SHE WAS "SENSITIVE ALL OVER", WILL CONTINUE TO MONITOR
[2019-11-25 21:05] LABS: BASO % 0.1 % (0.0-1.0); LYMPH # 0.4 10*3/uL (1.3-4.4); LYMPH % 3.6 % (27.0-41.0); MEAN CORPUSCULAR HGB 28.8 pg (27.0-31.0); MEAN CORPUSCULAR HGB CONC 31.3 g/dl (33.0-37.0); MEAN PLATELET VOLUME 10.3 fl (9.6-12.3); MONO # 0.7 10*3/uL (0.1-1.0); NEUT # 10.6 10*3/uL (2.3-7.9); NEUT % 89.9 % (47.0-73.0); PLATELET COUNT AUTOMATED 201 10*3/uL (130-400); RED BLOOD COUNT 3.26 10*6/uL (4.10-5.10); RED CELL DISTRI WIDTH 15.2 % (0-14.5); WHITE BLOOD COUNT 11.8 10*3/uL (4.8-10.8)
--- NOTE | 2019-11-25 21:10 | NUR ---
AWARE OF REPEAT H&H OF 9.2/30.0. STATED OK, NO NEW ORDERS AT THIS TIME
--- NOTE | 2019-11-25 21:12 | NUR ---
TYLENOL APEARS EFFECTIVE. PATIENT IS RESTING QUIETLY IN BED, EYES CLOSED. NO DISTRESS NOTED. CALL LIGHT WITHI NREACH. BED ALARM MAINTAINED.
--- NOTE | 2019-11-25 22:00 | NUR ---
PATIENT ATTEMPTED TO GET OUT OF BED AT THIS TIME UNASSISTED. PATIENT REORIENTED. NOTED THAT PATIENTS BRIEF WAS SOILED WITH LARGE LOOSE GREEN BM, NO FOUL SMELL NOTED. SLICK CARE COMPLETED AND HYDRAGUARD APPLIED. PATIENT STATED SHE FELT BETTER.
[2019-11-26] VITALS (59 sets, daily range): BP systolic 110–163; BP diastolic 64–111
--- NOTE | 2019-11-26 00:30 | NUR ---
PATIENT ATTEMPTED TO GET OUT OF BED UNASSISTED AGAIN. PATIENT HAD ANOTHER INCONT EPISDOE OF LARGE LOOSE BM. SLICK-CARE WAS PROVIDED AND REPOSITIONED INTO BED. PATIENT VOICED NO NEEDS AT THIS TIME. CALL LIGHT WITHIN EACH
--- NOTE | 2019-11-26 02:17 | NUR ---
PATIENT RESTING QUIETLY IN BED, NO DISTRESS NOTED. CALL LIGHT WITHIN REACH
--- NOTE | 2019-11-26 04:00 | NUR ---
PATIENT INCONT OF BOWEL AND BLADDER AT THIS TIME. SMALL AMOUNT OF LOOSE STOOL NOTED. SLICK-CARE PROVIDED. PATIENT VOICED NO NEED AT THIS TIME. NC PUT BACK INTO PLACE D/T PATIENT REMOVING, SPO2=95% ON 2L NC. BITE BLOCK MAKER REATTACHED WELL D/T PATIENT REMOVING
[2019-11-26 05:08] LABS: ALBUMIN 2.6 gm/dl (3.1-4.5); CREATININE 1.11 mg/dL (0.55-1.02); PHOSPHOROUS 2.6 mg/dL (2.5-4.9); POTASSIUM 5.3 mmol/L (3.5-5.1); TOTAL PROTEIN 7.1 gm/dL (6.4-8.2)
--- NOTE | 2019-11-26 05:20 | NUR ---
PATIENT HEART RATE INCREASED TO 250'S PER CM WHILE ATTEMPTED TO GET UP. CALLED AND INFORMED, STAT EKG IN PLACE. BLOOD PRESSURE 137/101 AT THIS TIME. PATIENT STATES SHE JUST FEELS HER HEART GOING FAST. DOCTOR STATES CARDIZEM GTT WILL BE ORDERED.
--- NOTE | 2019-11-26 05:35 | NUR ---
DR. WYMAN AWARE OF STAT EKG RESULTS
--- NOTE | 2019-11-26 05:40 | NUR ---
CARDIZEM GTT INITIATED AT THIS TIME, 10MG IV BOLUS GIVEN PRIOR. HR STARTING IS 118 AND AFTER 110, BP 163/111. WILL CONTINUE TO MONITOR
--- NOTE | 2019-11-26 05:59 | NUR ---
MADE AWARE THAT POTASSIUM LEVEL IS AT 5.3. STATED TO D/C KDUR ORDER.
[2019-11-26 06:24] LABS: BASO % 0.1 % (0.0-1.0); HEMATOCRIT 30.7 % (37.0-47.0); LYMPH # 0.6 10*3/uL (1.3-4.4); MEAN CORPUSCULAR HGB 29.1 pg (27.0-31.0); MEAN CORPUSCULAR HGB CONC 31.3 g/dl (33.0-37.0); MEAN PLATELET VOLUME 10.7 fl (9.6-12.3); MONO # 0.9 10*3/uL (0.1-1.0); MONO % 7.9 % (3.0-9.0); NEUT # 9.9 10*3/uL (2.3-7.9); NEUT % 86.6 % (47.0-73.0); NUCLEATED RED BLOOD CELL 0.3 % (0.0-0.0); PLATELET COUNT AUTOMATED 251 10*3/uL (130-400); RED CELL DISTRI WIDTH 15.5 % (0-14.5); WHITE BLOOD COUNT 11.5 10*3/uL (4.8-10.8)
--- NOTE | 2019-11-26 09:21 | NUR ---
DR BILLINGS CALLED WITH SUSTAINED AF W/ RVR RATE 220'S.. PT ASYMPTOMATIC.. ORDER FOR ADENOSINE 0921 ADENOSINE 6mg GIVEN WITH NO PAUSE & NO CHANGE IN HEART RATE OR RHYTHM
--- NOTE | 2019-11-26 09:30 | NUR ---
0943 DR BILLINGS CALL WITH RESULTS AND ORDERS FOR ANOTHER 12mg TO BE GIVEN 0928 HR DROPPED TO 12'S FOR @ 1 MIN THEN BACK TO 198-200...
--- NOTE | 2019-11-26 09:43 | NUR ---
0934 12mg ADENOSINE GIVEN A IV SITE WITH GOOD BLOOD RETURN.. DROP TO 80'S BUT BY 09 HR BACK TO AF W/ RVR RATE 220... BP VIA ABP 127/111
--- NOTE | 2019-11-26 09:49 | NUR ---
DR BILLINGS CALLED BACK TO CHECK ON PATIENT - ORDER FOR AMIODARONE BOLUS FOLLOWED BY ZENON
--- NOTE | 2019-11-26 10:27 | NUR ---
AMIODARONE BOLUS THEN DRIP STARTED PER ORDERS... AF W/ RVR RATE NOW 178-180
--- NOTE | 2019-11-26 10:30 | NUR ---
AMIODARONE STARTED PER ORDR, BOLUS OF 150MG OVER 10MINUTES INITIATEDM HR160, BP 112/60. PT ALERT AND ORIENTED TO SELF, SOB, BUT DENIES CP
--- NOTE | 2019-11-26 10:40 | NUR ---
INITIATIAL AMIODARONE INFUSED, HR 104 BP 128/60. CONTINUOUS INFUSION PER ORDER 0F 1MG/HR FOR 6 HOURS. CARDIZEM TITRATED TO 5ML/HR. ON FLOOR AND NOTIFIED
--- NOTE | 2019-11-26 21:09 | NUR ---
CARDIZEM DECREASED TO 2.5MG/HR FOR HR SUSTAINING 80-90;S. WILL MONITOR
[2019-11-27] VITALS (41 sets, daily range): BP systolic 99–150; BP diastolic 52–85
--- NOTE | 2019-11-27 03:30 | NUR ---
UNABLE TO OBTIANED BP DURING TIME FRAME OF [id number] D/T PATIENT HAVING BP CUFF OFF FRO BATH.
--- NOTE | 2019-11-27 04:55 | NUR ---
PER CARDIAC MONIOTR PATIENTS HR INCREASED TO 190'S TO LOW 200'S. BP WNLS AT THIS TIME. PATIENT VOICED NO COPLAINTS. DR. WYMAN MADE AWARE, CARDIZEM GTT INCREASED FROM 2.5MG/HR TO 15MG/HR. AWAITING NEW ORDERS.
--- NOTE | 2019-11-27 05:00 | NUR ---
PATIENT 12MG IV BOLUS OF IV ADENOSINE PER DR. WYMAN. AT THIS TIME. PATINET EXPERIENCED NO PAUSE HR STILL MAINTAINING 180'S TO LOW 200'S, BP REMAINING WNL. PATIENT C/O OF SOB AT THIS TIME ON 2L NC, SPO2 95-100%. PATIENT PLACED ON NON-REBREATHER FOR DEMAND. AWAITING ORDERS FROM
--- NOTE | 2019-11-27 05:05 | NUR ---
PATIENT GIVEN 10MG BLOUS OF IV CARDIZEM AT THIS TIME. HR MAINTAINING 160-190'S AT THIS TIME, BP REMAINING WNLS. PATIENT VOICED NO COMPLAINTS AT THIS TIME. WILL CONTINUE TO MONITOR
--- NOTE | 2019-11-27 05:10 | NUR ---
PER PATIENT GIVEN 5MG IV LOPRESSOR FOR HR MAINING 150-180'S AT THIS TIME. BP REMAINING WITHIN NORMAL LIMITS. PATIENT VOICED NO COPMLAINTS. WILL CONTINUE TO MONITOR
--- NOTE | 2019-11-27 05:15 | NUR ---
PATIENT HR IS BREAKING DOWN INTO 80'S BUT WILL INCREASE TO 150'S IMMEDIATELY. WILL CONTINUE TO MONITOR
--- NOTE | 2019-11-27 05:20 | NUR ---
PATIENT IS SINUS ARRHYTHMIA AT THIS TIME MAINTAINING 80-90'S. BP STILL WNL. WILL CONTINUE TO MONITOR
[2019-11-27 05:44] LABS: BUN 17 mg/dl (7-24); CHLORIDE 112 mmol/L (98-107); CREATININE 1.05 mg/dL (0.55-1.02); SODIUM 142 mmol/L (136-145)
[2019-11-27 05:53] LABS: POTASSIUM 4.2 mmol/L (3.5-5.1)
[2019-11-27 06:15] LABS: BASO % 0.1 % (0.0-1.0); EOS % 0.2 % (1.0-4.0); HEMATOCRIT 28.5 % (37.0-47.0); LYMPH # 1.1 10*3/uL (1.3-4.4); LYMPH % 10.4 % (27.0-41.0); MEAN CELL VOLUME 94.1 fl (81.0-99.0); MEAN CORPUSCULAR HGB CONC 30.9 g/dl (33.0-37.0); MEAN PLATELET VOLUME 10.3 fl (9.6-12.3); MONO # 1.1 10*3/uL (0.1-1.0); NEUT # 7.8 10*3/uL (2.3-7.9); NEUT % 77.4 % (47.0-73.0); PLATELET COUNT AUTOMATED 245 10*3/uL (130-400); RED BLOOD COUNT 3.03 10*6/uL (4.10-5.10); RED CELL DISTRI WIDTH 15.9 % (0-14.5); WHITE BLOOD COUNT 10.1 10*3/uL (4.8-10.8)
--- NOTE | 2019-11-27 06:30 | NUR ---
HR MAINTAINING 80-90'S
--- NOTE | 2019-11-27 11:27 | NUR ---
NOTIFIED OF COVID TESTING NEGATIVE
--- NOTE | 2019-11-27 15:00 | NUR ---
CONSULT TO DR. FERNANDO ORDERRED BY DR. PAREDES FOR RLE SUTURED LACERATION. HE REQUESTED PHOT BE SENT AND ORDERRED NPO AFTER MN FOR AM PROCEDURE.
--- NOTE | 2019-11-27 17:14 | NUR ---
PATIENT WENT INTO HIGH RATE AFIB IN 180S. NOTIFIED DR. KAUFFMAN. STAT EKG ORDERREDE, GAVE 5 MG LOPRESSOR IV PER EMAR. HEAR RATE REDUCED TO 160S. BP 99/63. CALLED DR. BILLINGS. HE ORDERRED .5 LANAOXIN. WAIT 30 MIN THEN GIVE 5 MG LOPRESSOR IV IF BP TOLERATES. GAVE DIG. BP 121/75. DURING 117/70, AFTER DIG BP 129/70. CURRENT HR 140S. WILL GIVE 5 MG IV LOPRESSOR AND NOTIFY DR. BILLINGS IF NO CONVERSION OR LOWER HR.
--- NOTE | 2019-11-27 20:00 | NUR ---
UPDATED ON HR REMAININF 140S-150S PER CM. AWARE THAT 50 MG PO LOPRESSOR GIVEN AT 1806. D/[place] ORDER FOR 50 MG BID AND INCREASED DOSE TO 100 MG BID. NEXT DOSE DUE AT 2200. OKAY TO GIVE PER .
--- NOTE | 2019-11-27 20:17 | NUR ---
SPOKE TO REGARDING HR 140S-160S. DISCUSSED MEDS GIVEN AND 100 MG PO METOPROLOL DUE AT 2200. GIVE METOPROLOL NOW AND ALSO GIVE .25 IV DIG X1 DOSE NOW.
--- NOTE | 2019-11-27 20:45 | NUR ---
.25 IV DIGOXIN ADMINISTERED SLOWLY PER ORDER. PO METOPROLOL ALSO GIVEN AT THIS TIME. HR 150S-160S PER CM. WILL MONITOR EFFECTIVENESS. CALL LIGHT IN REACH.
--- NOTE | 2019-11-27 21:11 | NUR ---
FAMILY MEMBER SRAVANI CALLED IN WITH PT'S PASS CODE. UPDATED ON PLAN OF CARE.
--- NOTE | 2019-11-27 23:11 | NUR ---
PT HR 110S-130S PER CM. ASYMPTOMATIC. WILL CONTINUE TO MONITOR.
[2019-11-28] VITALS (18 sets, daily range): BP systolic 108–149; BP diastolic 64–87
--- NOTE | 2019-11-28 02:00 | NUR ---
IV SITE TO RAC AND R FOREARM REMOVED BOTH SITES PAINFUL UPON FLUSHING WITH NO BLOOD RETURN NOTED. NEW 22G IV SITE INITIATED IN R FOREARM PER POLICY. PT TOLERATED WELL. IV LOPRESSOR ADMINISTERED PER PRN ORDER FOR HR SUSTAINING 140S. WILL MONITOR EFFECTIVENESS. IV AMIODARONE INFUSING IN LAC IV SITE. CALL LIGHT IN REACH. BED ALARM INTACT.
--- NOTE | 2019-11-28 03:05 | NUR ---
'S ANSWERING SERVICE PAGED AT THIS TIME REGARDING HR SUSTAINING 130S-150S FOLLOWING IV LOPRESSOR ADMINISTRATION.
--- NOTE | 2019-11-28 03:42 | NUR ---
STILL NO PHONE CALL RECEIVED FROM . HR REMAINS 140S-150S PER CM. DISCUSSED MEDICATIONS GIVEN. NEW ORDER RECEIVED FOR 0.25 IV DIG X1 DOSE NOW.
--- NOTE | 2019-11-28 03:44 | NUR ---
STILL NO PHONE CALL RECEIVED FROM . HR REMAINS 140S-150S PER CM. NOTIFIED. DISCUSSED MEDICATIONS GIVEN. NEW ORDER RECEIVED FOR 0.25 IV DIG X1 DOSE NOW.
--- NOTE | 2019-11-28 04:31 | NUR ---
Upon discharge recommend patient to follow up for wound care in outpatient setting continue current wound care orders at discharging facility.
--- NOTE | 2019-11-28 06:10 | NUR ---
HR SUSTAINING 160S-170S PER CM. NOTIFIED. INSTRUCTED TO GIVE 5 IV METOPROLOL PER PRN ORDER AND CALL CARDIOLOGY. IV METOPROLOL GIVEN PER ORDER. WILL NOTIFY CARDIOLOGY.
--- NOTE | 2019-11-28 06:13 | NUR ---
'S ANSWERING SERVICE CALLED. AWAITING RETURN PHONE CALL.
--- NOTE | 2019-11-28 06:16 | NUR ---
RETURNED PHONE CALL. DISCUSSED HR SUSTAINING AT 160S-170S AND 5 MG IV METOPROLOL JUST GIVEN. AWARE HR NOW 110S-120S PER CM. DISCUSSED ALL MEDS GIVEN SINCE LAST CONVERSATION. INSTRUCTED TO GIVE AM DOSE OF PO METOPROLOL NOW AND HE WILL FIGURE OUT WHAT TO DO NEXT.
--- NOTE | 2019-11-28 07:24 | NUR ---
Will need PT/OT Ev[facility] for [facility].
--- NOTE | 2019-11-28 07:30 | NUR ---
PT RESTING IN BED WITH NO COMPLAINTS. RESPS EASY AND REGULAR. PT ALERT AND ORIENTED X3. ASSESSMENT COMPLETE. VSS. CALL LIGHT WITHIN REACH. WILL CONTINUE TO MONITOR.
--- NOTE | 2019-11-28 08:22 | NUR ---
OFFICE NOTIFIED OF DIG LEVEL OF 4.11.
--- NOTE | 2019-11-28 09:25 | NUR ---
PT OFF THE FLOOR AT THIS TIME FOR ULTRASOUND.
--- NOTE | 2019-11-28 11:10 | NUR ---
IN TO SEE PT AND REMOVED SUTURES FOR PTS WOUND TO HER RIGHT LEG.
--- NOTE | 2019-11-28 11:30 | NUR ---
PHYSICAL THERAPY PT orders received and chart reviewed. While patient was supine in bed, patient's subjective information was obtained. OTR attempted UE ROM and patient's HR elevated to 170s. Nursing aware and instructed to defer PT/OT until HR decreases. Will follow up with patient when medically appropriate. Thank you. Abby Russo,PT,DPT
--- NOTE | 2019-11-28 11:30 | NUR ---
Occupational therapy orders received and chart reviewed. While patient was supine in bed, patient's subjective information was obtained. OTR attempted UE ROM and patient's HR elevated to 170s. Nursing aware and instructed to defer therapy until HR decreases. Will follow up with patient when appropriate. Thank you. Kathy Dyson, OTR/L
--- NOTE | 2019-11-28 11:46 | NUR ---
SCRAP CUTTER faxed updates to [facility]. Will need PT Eval before [facility] can accept or deny.
--- NOTE | 2019-11-28 11:51 | NUR ---
PT/OT IN TO WORK WITH PT AND PTS HR WAS IN THE 150S AND PTS HIP BOTHERING HER. ASKED THERAPY TO TRY AGAIN TOMORROW AND LET PT REST.
--- NOTE | 2019-11-28 11:54 | NUR ---
PTS HR STAYING IN THE 150S NOTIFIED.
--- NOTE | 2019-11-28 12:30 | NUR ---
PT IV IN HER LAC WAS PULLED OUT. NEW IV STARTED IN IN RAC 22G. GOOD BLOOD RETURN, FLUSHES WELL.
--- NOTE | 2019-11-28 12:30 | NUR ---
PUT IN A ONE TIME PO JUANITA NOW. WILL MONITOR HR.
--- NOTE | 2019-11-28 12:30 | NUR ---
AMIODARONE DRIP DISCONTINUED AT THIS TIME.
--- NOTE | 2019-11-28 14:34 | NUR ---
HR IN THE LOW 100S AT THIS TIME. WILL CONTINUE TO MONITOR. CALL LIGHT WITHIN REACH.
--- NOTE | 2019-11-28 14:57 | NUR ---
OFFICE NOTIFIED PTS HR IN TH 180S AND ANYWHERE FROM THERE TO 140S.
--- NOTE | 2019-11-28 15:49 | NUR ---
PT BLADDER SCANNED, HIGHEST AMOUNT FOUND WAS 380.
--- NOTE | 2019-11-28 15:57 | NUR ---
NOTIFIED PTS HR STAYING IN THE 160S AND THAT I COULDN'T REACH . NO NEW ORDERS RECEIVED/
--- NOTE | 2019-11-28 16:50 | NUR ---
SPOKE WITH REGARDING PTS HR STAYING IN 160S. SEE NEW ORDERS.
--- NOTE | 2019-11-28 19:00 | NUR ---
HR UP TO 160S PER CM. CARDIZEM GTT TITRATED TO 10 ML/HR PER TITRATE ORDER. BP 127/75. WILL MONITOR HR.
--- NOTE | 2019-11-28 19:58 | NUR ---
2200 DOSE OF 100 MG METOPROLOL GIVEN NOW DUE TO HR IN THE 160S. WILL MONITOR.
--- NOTE | 2019-11-28 20:00 | NUR ---
IV TO RAC INFILTRATED AT THIS TIME. NEW 22G IV SITE INITATED IN LAC. IV CARDIZEM NOW INFUSING IN LAC. HR REMAINS IN 160S. AWARE. PO METOPROLOL SCHEDULED FOR 0 GIVEN EARLY AT THIS TIME. BP 130/84.
--- NOTE | 2019-11-28 20:27 | NUR ---
NOTIFIED OF HR 160S SUSTAINING. AWARE CARDIZEM GTT INCREASED TO 10 ML/HR @ 1900 AND 100 MG PO METOPROLOL GIVEN AT 1956. INSTRUCTED TO CALL CARDIOLOGY
--- NOTE | 2019-11-28 20:32 | NUR ---
PT HR NOW LOW 100S FOLLOWING MEDICATION ADMINISTRATION. IV CARDIZEM INFUSING. CARDIO TO BE CALLED IF HR SPIKES AGAIN.
--- NOTE | 2019-11-28 21:00 | NUR ---
CARDIZEM GTT DECREASED FROM 10 ML/HR TO 5 ML/HR. HR NOW 70S.
--- NOTE | 2019-11-28 22:21 | NUR ---
BLADDER SCANNED FOR 829 PER 'S ORDER. PER AM SHIFT RN, FOZIA WANTED EITAN DISCUSSED WITH HOSPITALISTS. SPOKE TO . NEW ORDER RECEIVED FOR EITAN.
--- NOTE | 2019-11-28 23:43 | NUR ---
BP 125/64. LAIRD UNCLAMPED AT THIS TIME. PT SLEEPING. CARDIZEM GTT INFUSING. HR 70S. WILL MONITOR. CALL LIGHT IN REACH.
[2019-11-29] VITALS (7 sets, daily range): BP systolic 105–133; BP diastolic 54–72
--- NOTE | 2019-11-29 00:19 | NUR ---
PATIENT'S DAUGHTER CALLED IN WITH PASSCODE. UPDATED ON PLAN OF CARE.
--- NOTE | 2019-11-29 02:14 | NUR ---
CARDIZEM GTT STOPPED AT THIS TIME DUE TO HR 50S-60S. NORMAL SINUS RHYTHM WITH PACs. WILL MONITOR. CALL LIGHT IN REACH.
--- NOTE | 2019-11-29 02:33 | NUR ---
NOTIFIED CARDIZEM GTT STOPPED AND PT NOW IN BIGEMINY RATE 70S-80S. INSTRUCTED TO ORDER EKG.
[2019-11-29 06:10] LABS: HEMATOCRIT 31.6 % (37.0-47.0); MEAN CELL VOLUME 93.5 fl (81.0-99.0); MEAN CORPUSCULAR HGB 28.7 pg (27.0-31.0); MEAN CORPUSCULAR HGB CONC 30.7 g/dl (33.0-37.0); MEAN PLATELET VOLUME 10.2 fl (9.6-12.3); NUCLEATED RED BLOOD CELL 0.1 % (0.0-0.0); PLATELET COUNT AUTOMATED 348 10*3/uL (130-400); RED BLOOD COUNT 3.38 10*6/uL (4.10-5.10); RED CELL DISTRI WIDTH 15.6 % (0-14.5); WHITE BLOOD COUNT 14.5 10*3/uL (4.8-10.8)
[2019-11-29 06:21] LABS: BUN 17 mg/dl (7-24); CHLORIDE 110 mmol/L (98-107); CREATININE 0.83 mg/dL (0.55-1.02); PHOSPHOROUS 3.7 mg/dL (2.5-4.9); POTASSIUM 3.8 mmol/L (3.5-5.1); SODIUM 139 mmol/L (136-145)
[2019-11-29 06:37] LABS: OVALOCYTES FEW; TOTAL CELLS COUNTED 100 #CELLS
[2019-11-29 06:38] LABS: PLATELET SUFFICIENCY NORMAL (NORMAL)
--- NOTE | 2019-11-29 07:30 | NUR ---
PT RESTING IN BED. RESPS EASY AND REGULAR. VSS. HR 70S-80S AT THIS TIME ON MEDICAL RESEARCH SCIENTIST. ASSESSMENT COMPLETE. CALL LIGHT WITHIN REACH. WILL CONTINUE TO MONITOR.
--- NOTE | 2019-11-29 08:45 | NUR ---
SPOKE WITH DAUGHTER AND UPDATED HER ON HER MOTHERS CONDITION AND ANSWERED HER QUESTIONS.
--- NOTE | 2019-11-29 08:45 | NUR ---
When medically stable and accepted she will be discharged to [facility]. Spoke to therapy and they are going to work with the patient this morning as long as she is medical stable to work with them. frog or oyster farmworker/order planner following.
--- NOTE | 2019-11-29 09:12 | NUR ---
CALLED AND CONFIRMED WITH DAUGHTER THAT IT IS OK FOR PT TO GET A PICC LINE. PER DAUGHTER, HELLEN THAT IS FINE WITH HER.
--- NOTE | 2019-11-29 09:13 | NUR ---
PT OFF THE FLOOR FOR PICC LINE INSERTION AT THIS TIME.
--- NOTE | 2019-11-29 10:15 | NUR ---
PT BACK TO THE FLOOR AT THIS TIME FROM SURGERY.
--- NOTE | 2019-11-29 10:42 | NUR ---
PHYSICAL THERAPY Physical Therapy evaluation completed on 4E with full evaluation to follow. Moderate complexity PT evaluation per chart review and evaluation, [id number]. Recommend physical therapy per plan of care and SNF upon discharge. Thank you for this referral. Abby Russo,PT,DPT
--- NOTE | 2019-11-29 10:46 | NUR ---
Spoke to daughter, Geni, regarding LTAC. She would like her mother back in the [facility] system as that is where she normally goes and the physicians already know her there. She states she was unable to get the patient to [facility] the day she was admitted here because of how sick she was. She would like to try [facility] in [place]. sawmill relief worker notified.
--- NOTE | 2019-11-29 10:46 | NUR ---
Occupational Therapy evaluation completed on four with full evaluation to follow. Recommend occupational therapy per plan of care and SNF upon discharge. Thank you for this referral. Kathy Dyson OTR/L
--- NOTE | 2019-11-29 12:18 | NUR ---
PT RESTING IN BED EATING HER LUNCH. NO COMPLAINTS AT THIS TIME. VSS. CALL LIGHT KAR GUADARRAMA. WILL CONTINUE TO MONITOR.
--- NOTE | 2019-11-29 12:27 | NUR ---
New patient referral [facility]. Pending acceptance.
--- NOTE | 2019-11-29 14:47 | NUR ---
PRN TYLENOL GIVEN FOR COMPLAINTS OF BACK PAIN. WILL ASSESS EFFECTIVENESS.
--- NOTE | 2019-11-29 20:12 | NUR ---
PT'S DAUGHTER CALLED IN WITH PATIENT'S PASSCODE. UPDATED ON PLAN OF CARE.
--- NOTE | 2019-11-29 22:09 | NUR ---
PER EAN HERNANDES TO GIVE SCHEDULED AMIODARONE AND METOPROLOL. AWARE OF HR 60S PER CM.
[2019-11-30] VITALS: BP 128/56
--- NOTE | 2019-11-30 01:00 | NUR ---
PATIENT RESTING IN BED WITH EYES CLOSED. NO SIGNS OR SYMPTOMS OF DISTRESS NOTED AT THIS TIME. RESPIRATIONS REGULAR AND NON-LABORED. HRR NS IN THE 60'S. 98-100% ON ROOM AIR. LAIRD CATH PATIENT DRAING STRAW COLORED URINE. WILL CONTINUE TO MONITOR. CALL LIGHT IN REACH.
[2019-11-30 06:06] LABS: MEAN CELL VOLUME 91.7 fl (81.0-99.0); MEAN CORPUSCULAR HGB 28.7 pg (27.0-31.0); MEAN CORPUSCULAR HGB CONC 31.3 g/dl (33.0-37.0); MEAN PLATELET VOLUME 9.9 fl (9.6-12.3); PLATELET COUNT AUTOMATED 395 10*3/uL (130-400); RED BLOOD COUNT 3.27 10*6/uL (4.10-5.10); RED CELL DISTRI WIDTH 15.9 % (0-14.5); WHITE BLOOD COUNT 10.6 10*3/uL (4.8-10.8)
[2019-11-30 06:24] LABS: CHLORIDE 113 mmol/L (98-107); POTASSIUM 3.6 mmol/L (3.5-5.1); SODIUM 142 mmol/L (136-145)
[2019-11-30 06:33] LABS: BURR CELLS FEW; PLATELET SUFFICIENCY NORMAL (NORMAL); POLYCHROMASIA SLIGHT; TOTAL CELLS COUNTED 100 #CELLS
[2019-11-30 06:34] LABS: BUN 21 mg/dl (7-24); CREATININE 0.69 mg/dL (0.55-1.02); OVALOCYTES FEW; PHOSPHOROUS 3.1 mg/dL (2.5-4.9)
[2019-11-30 08:00] VITALS: BP 108/60
--- NOTE | 2019-11-30 08:19 | NUR ---
TELEPHONE SALES REPRESENTATIVE received call from [facility] is asking for updated Med List. TELEPHONE SALES REPRESENTATIVE faxed updated Med list.
--- NOTE | 2019-11-30 09:17 | NUR ---
Received call from [facility] requesting rev codes. Transferred to business office. Awaiting acceptance.
--- NOTE | 2019-11-30 09:50 | NUR ---
PHYSICAL THERAPY Patient seen this am 1:1 for therapy visit and was supine in bed upon therapist arrival. Patient identified by name / and presented with continuos O2-2L via NC. Patient reports L LE c/o of mild pain and was joined by patient attendant who was present for observation only. Patient transfers supine to sit EOB with MIN A, tolerating a minute or so to collect herself, then performed sit to stand MOD A x 2, with use of wh walker standing support. Patient was very nervous for fear of falling and needed multiple v/c's to improve standing posture / technique. Patient completed SPT to bedside chair MOD A x 2, demonstrating very unsteady balance with generalized LE weakness. Patient remained in bedside chair with call light, tray table, telephone and body alarm for safety as breakfast tray arrived. Will continue per POC as tolerated, total treatment time 13 minutes. Shayan Ladd, LEAD CLINICAL RESEARCH COORDINATOR
[2019-11-30] MEDS ORDERED: CEFEPIME2 GM/100 M IV (10:15)
--- NOTE | 2019-11-30 10:45 | NUR ---
PATIENT EXERCISED WITH PT/OT AND ASSISTED TO CHAIR AT 0945, BACK TO BED AT 1045 FOR LAIRD CATHETER REMOVAL.
--- NOTE | 2019-11-30 10:55 | NUR ---
ADULT BASIC STUDIES TEACHER spoke with [facility]. Waiting bed availability. Reconfirmed the patient testing per 11/23/19 is COVID-19 Negative. Will await to hear back from him about a bed being available.
--- NOTE | 2019-11-30 11:00 | NUR ---
LAIRD CATHETER DISCONTINUED, PATIENT TOLERATED WELL, ENCOURAGED HER TO REPORT URGE TO VOID SO THAT SHE MAY BE ASSISTED TO BSC. STARTING FLOMAX TODAY TO PROMOTE URINATION WITHOUT DIFFICULTY. WILL MONITOR FOR OUTPUT THIS SHIFT.
--- NOTE | 2019-11-30 11:09 | NUR ---
OT NOTE Pt was seen this A.M. 1:1 for 20 minute OT session. Upon arrival pt was sitting upright in the recliner. Pt identified by name and and had no complaints at this time. Pt presented to therapy with continuous 1.5L-O2 via NC which she remained on throughout the entire session. Pt's resting heart rate was 59 bpm. Pt completed sit to stand from chair level with modA X 2 and education on proper hand placement for increased I and improved technique. Standing pivot was then completed from the recliner to the bedside commode with modA X 2 and maxA for L foot advancement/placement. Pt transferred on to bedside commode with Tomas. Clothing management completed with maxA and toilet hygiene completed with maxA. Pt then transferred off bedside commode with modA X 2. Standing pivot then completed to the EOB with modA X 2 and maxA for L foot advancement. Pt transferred sit to supine with maxA X 2. Throughout all tasks pt's heart rate elevated between 63-70 bpm. Pt was left supine in bed with call light in hand, tray table in place, and bed alarm activated for safety. Continue with rec D/C plan to SNF. AZAEL Pan
--- NOTE | 2019-11-30 11:34 | NUR ---
MEDICATED WITH PRN PO TYLENOL FOR RIGHT SHOULDER ACHING.
--- NOTE | 2019-11-30 11:44 | NUR ---
Spoke to daughter, Geni, regarding [facility] has accepted patient in [place] that they are just waiting on bed availability.
[2019-11-30 12:00] VITALS: BP 129/64
--- NOTE | 2019-11-30 12:14 | NUR ---
JOSE spoke with [facility]. A bed will be available for the patient after 7:30pm today 11/30/2019. RN to RN: Admitting Doctor: Dr. Mila GARCIA notified RN Hospitalist Coordinator Kayli of this.
--- NOTE | 2019-11-30 12:35 | NUR ---
REGULATORY TECHNICIAN spoke with RN Hospitalist Coordinator Kayli. Patients discharge is being worked on now. REGULATORY TECHNICIAN spoke with [facility] to schedule a 7pm transport. REGULATORY TECHNICIAN notifed [facility] of this transport time and provided her with the RN to RN, and Admitting Doctor information (see previous note). REGULATORY TECHNICIAN notifed patients daughter Geni Long/ and [facility] of transport time. REGULATORY TECHNICIAN faxed demographics to [facility].
[2019-11-30] MEDS ORDERED: PACERONE200 MG PO (13:13)
[2019-11-30] MEDS ORDERED: ASPIRIN ADULT L81 M2 PO (13:13)
[2019-11-30] MEDS ORDERED: METOPROLOL TAR100 M1 PO (13:13)
[2019-11-30] MEDS ORDERED: DILTIAZEM CD240 MG PO (13:13)
[2019-11-30] MEDS ORDERED: DOXYCYCLINE MO100 M1 PO (13:13)
[2019-11-30 16:00] VITALS: BP 104/64
--- NOTE | 2019-11-30 17:18 | NUR ---
REPORT CALLED TO RECEIVING NURSE AT [facility] IN [place]. PATIENT IS SCHEDULED FOR TRANSPORT THERE AT 7PM. DISCHARGE WOUND PHOTOS HAVE BEEN OBTAINED.
--- NOTE | 2019-11-30 17:24 | NUR ---
PATIENT VOIDED 100ML CLOUDY DARK YELLOW URINE.
--- NOTE | 2019-11-30 18:41 | NUR ---
PATIENT DISCHARGED TO [facility] BY [facility] AT THIS TIME.
--- NOTE | 2019-12-01 08:50 | NUR ---
OCCUPATIONAL THERAPY CO-SIGN I approve of the Occupational Therapy notes written above. KIKI CAMPA, OTR/L
--- NOTE | 2019-12-01 09:57 | NUR ---
PHYSICAL THERAPY CO-SIGN I approve of the Physical Therapy notes written above. ZEB SON PT, DPT
== END 2019-11-30 19:31 | disposition short-term general hospital (02) | DRG 871 ==
LOC: ED 09:02 → 4E 14:04 → EDHOLD 14:04 → 5E 14:04 → EDHOLD 14:29 → 5E 14:30 → 4E 11-27 11:33
PROVIDERS: Emergency Medicine; Internal Medicine; Internal Medicine Critical Care Medicine; Student in an Organized Health Care Education/Training Program; ADMIT Family Medicine
PROC: 30233N1 Transfusion of Nonautologous Red Blood Cells into Peripheral Vein, Percutaneous Approach (ICD-10-PCS; principal; 2019-11-25)
PROC: 05H933Z Insertion of Infusion Device into Right Brachial Vein, Percutaneous Approach (ICD-10-PCS; 2019-11-29)
DX: A41.89 Other specified sepsis (principal); E43 Unspecified severe protein-calorie malnutrition; G93.41 Metabolic encephalopathy; J96.01 Acute respiratory failure with hypoxia; I21.A1 Myocardial infarction type 2; J15.1 Pneumonia due to Pseudomonas; C90.00 Multiple myeloma not having achieved remission; D68.69 Other thrombophilia; I48.21 Permanent atrial fibrillation; I47.1 Supraventricular tachycardia; R65.20 Severe sepsis without septic shock; I48.0 Paroxysmal atrial fibrillation; D64.9 Anemia, unspecified; E78.1 Pure hyperglyceridemia; K44.9 Diaphragmatic hernia without obstruction or gangrene; I25.10 Atherosclerotic heart disease of native coronary artery without angina pectoris; I70.0 Atherosclerosis of aorta; M47.814 Spondylosis without myelopathy or radiculopathy, thoracic region; R59.0 Localized enlarged lymph nodes; K57.90 Diverticulosis of intestine, part unspecified, without perforation or abscess without bleeding; E03.9 Hypothyroidism, unspecified; M81.0 Age-related osteoporosis without current pathological fracture; I34.1 Nonrheumatic mitral (valve) prolapse; A41.52 Sepsis due to Pseudomonas; M35.3 Polymyalgia rheumatica; I34.0 Nonrheumatic mitral (valve) insufficiency; E83.39 Other disorders of phosphorus metabolism; E87.6 Hypokalemia; J45.20 Mild intermittent asthma, uncomplicated; M19.90 Unspecified osteoarthritis, unspecified site; J84.10 Pulmonary fibrosis, unspecified; Z96.1 Presence of intraocular lens; M06.9 Rheumatoid arthritis, unspecified; Z90.710 Acquired absence of both cervix and uterus; Z87.891 Personal history of nicotine dependence; Z83.3 Family history of diabetes mellitus; Z88.4 Allergy status to anesthetic agent; Z79.82 Long term (current) use of aspirin; Z79.899 Other long term (current) drug therapy; Z03.818 Encounter for observation for suspected exposure to other biological agents ruled out; Z98.42 Cataract extraction status, left eye; Z98.41 Cataract extraction status, right eye; Z82.0 Family history of epilepsy and other diseases of the nervous system; Z68.22 Body mass index [BMI] 22.0-22.9, adult

== ENCOUNTER → 2020-01-26 | Outpatient (CLI) | payer MEDICARE ==
[2020-01-26] VITALS (7 sets, daily range): BP systolic 98–104; BP diastolic 50–66
[~2020-01-26] MED LIST changes: +ASPIRIN ADULT L81 M2 PO; +CEFEPIME2 GM/100 M IV; +DILTIAZEM CD240 MG PO; +DOXYCYCLINE MO100 M1 PO; +GOOD SENSE ASP325 MG PO; +METOPROLOL TAR100 M1 PO; +PACERONE200 MG PO; +PROTONIX40 MG PO; +TYLENOL EXTRA500 MG PO
== END | disposition home or self-care (01) ==
LOC: TRNFUSION 01:29
DX: D64.9 Anemia, unspecified (principal); J45.909 Unspecified asthma, uncomplicated; M06.9 Rheumatoid arthritis, unspecified; I48.91 Unspecified atrial fibrillation; I11.0 Hypertensive heart disease with heart failure; I50.32 Chronic diastolic (congestive) heart failure; K21.9 Gastro-esophageal reflux disease without esophagitis; E03.9 Hypothyroidism, unspecified; Z79.899 Other long term (current) drug therapy

== ENCOUNTER → 2020-02-06 | Outpatient (CLI) | payer MEDICARE ==
[2020-02-06 10:57] LABS: HEMATOCRIT 31.8 % (37.0-47.0); MEAN CELL VOLUME 93.8 fl (81.0-99.0); MEAN CORPUSCULAR HGB 28.9 pg (27.0-31.0); MEAN CORPUSCULAR HGB CONC 30.8 g/dl (33.0-37.0); MEAN PLATELET VOLUME 9.7 fl (9.6-12.3); PLATELET COUNT AUTOMATED 424 10*3/uL (130-400); RED BLOOD COUNT 3.39 10*6/uL (4.10-5.10); RED CELL DISTRI WIDTH 17.8 % (0-14.5); WHITE BLOOD COUNT 12.6 10*3/uL (4.8-10.8)
[2020-02-06 11:22] LABS: ALBUMIN 3.1 gm/dl (3.1-4.5); CREATININE 1.7 mg/dL (0.55-1.02); POTASSIUM 4.4 mmol/L (3.5-5.1)
[2020-02-06 11:24] LABS: TOTAL PROTEIN 7.1 gm/dL (6.4-8.2)
[2020-02-06 11:34] LABS: OVALOCYTES FEW; PLATELET SUFFICIENCY HIGH (NORMAL); ROULEAUX MODERATE; TOTAL CELLS COUNTED 100 #CELLS
== END | disposition home or self-care (01) ==
LOC: LAB 10:16
PROVIDERS: Internal Medicine
DX: Z79.899 Other long term (current) drug therapy (principal)

== ENCOUNTER → 2020-02-17 | Outpatient (CLI) | payer MEDICARE | END | disposition home or self-care (01) | LOC: RESCLI 03:50 | DX: Z09 Encounter for follow-up examination after completed treatment for conditions other than malignant neoplasm (principal); D50.0 Iron deficiency anemia secondary to blood loss (chronic); E04.9 Nontoxic goiter, unspecified; N18.3 Chronic kidney disease, stage 3 (moderate); J30.89 Other allergic rhinitis; E55.9 Vitamin D deficiency, unspecified; I48.0 Paroxysmal atrial fibrillation; M54.32 Sciatica, left side; R60.9 Edema, unspecified; M06.9 Rheumatoid arthritis, unspecified; K21.9 Gastro-esophageal reflux disease without esophagitis; I50.32 Chronic diastolic (congestive) heart failure; E78.1 Pure hyperglyceridemia; Z79.2 Long term (current) use of antibiotics; Z79.899 Other long term (current) drug therapy; Z79.82 Long term (current) use of aspirin; Z98.890 Other specified postprocedural states; Z88.5 Allergy status to narcotic agent ==

== ENCOUNTER → 2020-03-07 | Outpatient (CLI) | payer MEDICARE ==
[2020-03-07 09:51] LABS: HEMATOCRIT 32.6 % (37.0-47.0); MEAN CELL VOLUME 98.2 fl (81.0-99.0); MEAN CORPUSCULAR HGB 29.8 pg (27.0-31.0); MEAN CORPUSCULAR HGB CONC 30.4 g/dl (33.0-37.0); PLATELET COUNT AUTOMATED 350 10*3/uL (130-400); RED BLOOD COUNT 3.32 10*6/uL (4.10-5.10); RED CELL DISTRI WIDTH 17.2 % (0-14.5); WHITE BLOOD COUNT 12.2 10*3/uL (4.8-10.8)
[2020-03-07 10:07] LABS: ALBUMIN 2.9 gm/dl (3.1-4.5); CREATININE 1.86 mg/dL (0.55-1.02); POTASSIUM 4.4 mmol/L (3.5-5.1); TOTAL PROTEIN 7.1 gm/dL (6.4-8.2)
[2020-03-07 10:13] LABS: BASOPHILS 1 % (0-1); TOTAL CELLS COUNTED 100 #CELLS
[2020-03-07 10:14] LABS: OVALOCYTES FEW; PLATELET SUFFICIENCY NORMAL (NORMAL); SCHISTOCYTES FEW; TOXIC GRANULATION SLIGHT
== END | disposition home or self-care (01) ==
LOC: LAB 09:30
PROVIDERS: Student in an Organized Health Care Education/Training Program
DX: D50.0 Iron deficiency anemia secondary to blood loss (chronic) (principal); N18.3 Chronic kidney disease, stage 3 (moderate); E04.9 Nontoxic goiter, unspecified; R19.7 Diarrhea, unspecified

== ENCOUNTER → 2020-03-09 | Outpatient (CLI) | payer MEDICARE | END | disposition home or self-care (01) | LOC: LAB 15:44 | DX: R19.7 Diarrhea, unspecified (principal) ==

== ENCOUNTER → 2020-03-22 | Outpatient (CLI) | payer MEDICARE | END | disposition home or self-care (01) | LOC: RESCLI 03:50 | DX: D50.0 Iron deficiency anemia secondary to blood loss (chronic) (principal); E04.9 Nontoxic goiter, unspecified; J30.89 Other allergic rhinitis; E55.9 Vitamin D deficiency, unspecified; I48.0 Paroxysmal atrial fibrillation; M54.32 Sciatica, left side; R60.9 Edema, unspecified; M06.9 Rheumatoid arthritis, unspecified; K21.9 Gastro-esophageal reflux disease without esophagitis; I50.32 Chronic diastolic (congestive) heart failure; E78.1 Pure hyperglyceridemia; R41.3 Other amnesia ==

== ENCOUNTER → 2020-04-20 | Outpatient (CLI) | payer MEDICARE ==
[2020-04-20 09:20] LABS: BASO % 0.3 % (0.0-1.0); EOS % 0.3 % (1.0-4.0); HEMATOCRIT 32.4 % (37.0-47.0); LYMPH # 1.3 10*3/uL (1.3-4.4); LYMPH % 13.9 % (27.0-41.0); MEAN CORPUSCULAR HGB 29.6 pg (27.0-31.0); MEAN CORPUSCULAR HGB CONC 30.6 g/dl (33.0-37.0); MEAN PLATELET VOLUME 9.2 fl (9.6-12.3); MONO # 0.9 10*3/uL (0.1-1.0); MONO % 9.6 % (3.0-9.0); NEUT # 6.8 10*3/uL (2.3-7.9); NEUT % 74.6 % (47.0-73.0); PLATELET COUNT AUTOMATED 336 10*3/uL (130-400); RED BLOOD COUNT 3.34 10*6/uL (4.10-5.10); WHITE BLOOD COUNT 9.1 10*3/uL (4.8-10.8)
[2020-04-20 09:58] LABS: ALBUMIN 3.2 gm/dl (3.1-4.5); CREATININE 1.96 mg/dL (0.55-1.02); POTASSIUM 4.5 mmol/L (3.5-5.1); TOTAL PROTEIN 6.8 gm/dL (6.4-8.2)
== END | disposition home or self-care (01) ==
LOC: LAB 00:37
PROVIDERS: ATTEND Student in an Organized Health Care Education/Training Program
DX: D50.0 Iron deficiency anemia secondary to blood loss (chronic) (principal); N18.3 Chronic kidney disease, stage 3 (moderate); E04.1 Nontoxic single thyroid nodule

== ENCOUNTER 2020-05-16 19:38 | Emergency (ER) | payer MEDICARE ==
[~2020-05-16] VITALS: Ht 170.1 cm; Wt 61.7 kg
[2020-05-16] VITALS (7 sets, daily range): BP systolic 119–143; BP diastolic 69–79
[2020-05-16 20:42] LABS: BASO % 0.2 % (0.0-1.0); EOS % 0.1 % (1.0-4.0); HEMATOCRIT 27.1 % (37.0-47.0); LYMPH # 0.7 10*3/uL (1.3-4.4); LYMPH % 7.9 % (27.0-41.0); MEAN CELL VOLUME 98.2 fl (81.0-99.0); MEAN CORPUSCULAR HGB 29.7 pg (27.0-31.0); MEAN CORPUSCULAR HGB CONC 30.3 g/dl (33.0-37.0); MEAN PLATELET VOLUME 8.9 fl (9.6-12.3); MONO # 0.6 10*3/uL (0.1-1.0); MONO % 7.1 % (3.0-9.0); NEUT # 6.9 10*3/uL (2.3-7.9); NEUT % 83.8 % (47.0-73.0); NUCLEATED RED BLOOD CELL 0.2 % (0.0-0.0); PLATELET COUNT AUTOMATED 279 10*3/uL (130-400); RED BLOOD COUNT 2.76 10*6/uL (4.10-5.10); RED CELL DISTRI WIDTH 16.2 % (0-14.5); WHITE BLOOD COUNT 8.2 10*3/uL (4.8-10.8)
[2020-05-16 21:16] LABS: ALBUMIN 2.6 gm/dl (3.1-4.5); CREATININE 1.25 mg/dL (0.55-1.02); POTASSIUM 3.7 mmol/L (3.5-5.1); TOTAL PROTEIN 6.1 gm/dL (6.4-8.2)
[2020-05-16 21:17] LABS: ACT PARTIAL THROMBO TIME 24.4 SECONDS (20.0-32.1); INTERNATIONAL NORM RATIO 0.9 (2.0-3.5)
[2020-05-17 00:30] VITALS: BP 137/80
== END 2020-05-17 01:36 | disposition home or self-care (01) ==
LOC: ED 19:38
PROVIDERS: Emergency Medicine
DX: D64.89 Other specified anemias (principal); Z88.8 Allergy status to other drugs, medicaments and biological substances; Z79.899 Other long term (current) drug therapy; Z87.891 Personal history of nicotine dependence

== ENCOUNTER → 2020-07-20 | Outpatient (CLI) | payer MEDICARE ==
[2020-07-20 14:47] LABS: BASO % 0.3 % (0.0-1.0); HEMATOCRIT 35.7 % (37.0-47.0); LYMPH # 0.5 10*3/uL (1.3-4.4); LYMPH % 4.2 % (27.0-41.0); MEAN CELL VOLUME 99.7 fl (81.0-99.0); MEAN CORPUSCULAR HGB 30.2 pg (27.0-31.0); MEAN CORPUSCULAR HGB CONC 30.3 g/dl (33.0-37.0); MEAN PLATELET VOLUME 9.7 fl (9.6-12.3); MONO # 0.6 10*3/uL (0.1-1.0); MONO % 5.7 % (3.0-9.0); NEUT # 9.6 10*3/uL (2.3-7.9); NEUT % 87.7 % (47.0-73.0); PLATELET COUNT AUTOMATED 333 10*3/uL (130-400); RED BLOOD COUNT 3.58 10*6/uL (4.10-5.10); WHITE BLOOD COUNT 10.9 10*3/uL (4.8-10.8)
[2020-07-20 15:15] LABS: ALBUMIN 2.9 gm/dl (3.1-4.5); CREATININE 1.58 mg/dL (0.55-1.02); POTASSIUM 4.9 mmol/L (3.5-5.1); TOTAL PROTEIN 6.4 gm/dL (6.4-8.2)
[2020-07-21 04:06] LABS: TOTAL PROTEIN, SERUM 5.7 g/dL (6.0-8.5)
[2020-07-21 12:06] LABS: FREE KAPPA LIGHT CHAINS 612.9 mg/L (3.3-19.4); FREE LAMBDA LIGHT CHAINS 8.1 mg/L (5.7-26.3); KAPPA/LAMBDA RATIO 75.67 (0.26-1.65)
[2020-07-23 14:10] LABS: ALBUMIN 2.9 g/dL (2.9-4.4); ALPHA-1-GLOBULIN 0.4 g/dL (0.0-0.4); BETA GLOBULIN 0.9 g/dL (0.7-1.3); GAMMA GLOBULIN 0.6 g/dL (0.4-1.8); GLOBULIN, TOTAL 2.8 g/dL (2.2-3.9); M-SPIKE 0.3 g/dL (Not Observed)
[2020-07-24 17:06] LABS: BETA-2 MICROGLOBULIN 010181 4.2 mg/L (0.6-2.4)
== END | disposition home or self-care (01) ==
LOC: LAB 14:08
PROVIDERS: ATTEND Physician Assistant
DX: S32.10XA Unspecified fracture of sacrum, initial encounter for closed fracture (principal); D47.2 Monoclonal gammopathy; R63.4 Abnormal weight loss; C90.00 Multiple myeloma not having achieved remission; I49.9 Cardiac arrhythmia, unspecified; R60.0 Localized edema; D63.0 Anemia in neoplastic disease; Z51.11 Encounter for antineoplastic chemotherapy; X58.XXXA Exposure to other specified factors, initial encounter; Y93.89 Activity, other specified; Y92.89 Other specified places as the place of occurrence of the external cause; Y99.8 Other external cause status

== ENCOUNTER → 2020-08-07 | Outpatient (CLI) | payer MEDICARE ==
[~2020-08-07] MED LIST changes: +ALDACTONE25 M1 PO; +ASPIRIN CHILDRE81 MG PO; +Accuneb 0.1.25 MG/3 NEB; +CALCIUM 600 MG1 EAC2 PO; +CEFTRIAXONE1 G1 IV; +DOXYCYCLINE100 M3 PO; +FLUTICASONE-SA1 EAC4 INH; +Flonase 0.05% 120 Me NAS; +Ipratropium Brom3 ML INH; +LASIX20 MG PO; +LASIX40 MG PO
== END | disposition home or self-care (01) ==
LOC: RESCLI 01:01
PROVIDERS: ATTEND Internal Medicine
DX: M79.2 Neuralgia and neuritis, unspecified (principal); J30.89 Other allergic rhinitis; E55.9 Vitamin D deficiency, unspecified; I48.0 Paroxysmal atrial fibrillation; R60.9 Edema, unspecified; M06.9 Rheumatoid arthritis, unspecified; K21.9 Gastro-esophageal reflux disease without esophagitis; Z79.2 Long term (current) use of antibiotics; Z79.82 Long term (current) use of aspirin; Z79.84 Long term (current) use of oral hypoglycemic drugs; Z79.899 Other long term (current) drug therapy; Z88.8 Allergy status to other drugs, medicaments and biological substances

== ENCOUNTER 2020-09-12 16:28 | Inpatient (IN) | payer MEDICARE ==
[~2020-09-12] VITALS: Ht 170.1 cm; Wt 70.3 kg
[~2020-09-12 16:28] MED LIST changes: -ALDACTONE25 M1 PO; -ASPIRIN CHILDRE81 MG PO; -Accuneb 0.1.25 MG/3 NEB; -CALCIUM 600 MG1 EAC2 PO; -CEFTRIAXONE1 G1 IV; -DOXYCYCLINE100 M3 PO; -FLUTICASONE-SA1 EAC4 INH; -Flonase 0.05% 120 Me NAS; -Ipratropium Brom3 ML INH; -LASIX20 MG PO; -LASIX40 MG PO
[2020-09-12 16:29] VITALS: BP 107/48
[2020-09-12 17:00] LABS: HEMATOCRIT 27.9 % (37.0-47.0); MEAN CELL VOLUME 101.8 fl (81.0-99.0); MEAN CORPUSCULAR HGB 30.3 pg (27.0-31.0); MEAN CORPUSCULAR HGB CONC 29.7 g/dl (33.0-37.0); MEAN PLATELET VOLUME 8.9 fl (9.6-12.3); PLATELET COUNT AUTOMATED 279 10*3/uL (130-400); RED BLOOD COUNT 2.74 10*6/uL (4.10-5.10); RED CELL DISTRI WIDTH 16.4 % (0-14.5); WHITE BLOOD COUNT 23.9 10*3/uL (4.8-10.8)
[2020-09-12 17:14] LABS: ACT PARTIAL THROMBO TIME 29.3 SECONDS (20.0-32.1)
[2020-09-12 17:17] LABS: ALBUMIN 1.9 gm/dl (3.1-4.5); ALKALINE PHOSPHATASE 131 U/L (45-117); BUN 26 mg/dl (7-24); CHLORIDE 106 mmol/L (98-107); CREATININE 1.29 mg/dL (0.55-1.02); LIPASE 30 U/L (73-393); POTASSIUM 4.6 mmol/L (3.5-5.1); SGOT/AST 17 IU/L (3-35); SGPT/ALT 27 U/L (12-78); SODIUM 137 mmol/L (136-145); TOTAL PROTEIN 5.9 gm/dL (6.4-8.2)
[2020-09-12 17:18] LABS: BASOPHILS 2 % (0-1); TOTAL CELLS COUNTED 100 #CELLS
[2020-09-12 17:19] LABS: BURR CELLS FEW; OVALOCYTES FEW; TROPONIN I < 0.015 ng/ml (<0.045)
[2020-09-12 17:20] LABS: PLATELET SUFFICIENCY NORMAL (NORMAL); TARGET CELLS FEW
[2020-09-12 17:59] LABS: BILIRUBIN Negative (Negative); BLOOD Negative (Negative); CLARITY Clear (Clear); COLOR Yellow (Yellow); GLUCOSE Negative (Negative); KETONE Negative (Negative); LEUKO ESTERASE Negative (Negative); NITRITE Negative (Negative); SPECIFIC GRAVITY 1.015 (1.001-1.030); UROBILINOGEN 0.2 E.U./dl (0.0-1.0)
[2020-09-12 18:06] LABS: BACTERIA 2+; RBC 0-2 rbc/hpf (0-2)
[2020-09-12] MEDS ORDERED: CALCIUM 600 MG1 EAC2 PO (18:20)
[2020-09-12] MEDS ORDERED: LASIX20 MG PO (18:22)
[2020-09-12] MEDS ORDERED: FLUTICASONE-SA1 EAC4 INH (18:22)
[2020-09-12] MEDS ORDERED: ALDACTONE25 M1 PO (18:23)
[2020-09-12] MEDS ORDERED: PROTONIX40 MG PO (18:23)
[2020-09-12] MEDS ORDERED: Ipratropium Brom3 ML INH (18:24)
[2020-09-12 19:06] VITALS: BP 105/58
[2020-09-12 19:55] VITALS: BP 109/61
[2020-09-12 22:00] VITALS: BP 107/50
[2020-09-13] VITALS: BP 111/54
[2020-09-13 06:15] LABS: HEMATOCRIT 26.4 % (37.0-47.0); MEAN CORPUSCULAR HGB 29.9 pg (27.0-31.0); MEAN CORPUSCULAR HGB CONC 29.9 g/dl (33.0-37.0); MEAN PLATELET VOLUME 9.1 fl (9.6-12.3); PLATELET COUNT AUTOMATED 277 10*3/uL (130-400); RED BLOOD COUNT 2.64 10*6/uL (4.10-5.10); RED CELL DISTRI WIDTH 16.4 % (0-14.5); WHITE BLOOD COUNT 25.4 10*3/uL (4.8-10.8)
[2020-09-13 06:46] LABS: ALBUMIN 1.8 gm/dl (3.1-4.5); CREATININE 1.16 mg/dL (0.55-1.02); TOTAL PROTEIN 5.7 gm/dL (6.4-8.2)
[2020-09-13 07:11] LABS: DOHLE BODIES FEW; OVALOCYTES FEW; PLATELET SUFFICIENCY NORMAL (NORMAL); POLYCHROMASIA SLIGHT; SCHISTOCYTES FEW; TOTAL CELLS COUNTED 100 #CELLS; TOXIC GRANULATION SLIGHT
[2020-09-13 08:00] VITALS: BP 102/63
[2020-09-13 12:00] VITALS: BP 107/56
[2020-09-13 16:00] VITALS: BP 104/54
[2020-09-13 20:00] VITALS: BP 110/57
[2020-09-14] VITALS: BP 110/60
[2020-09-14 06:18] LABS: HEMATOCRIT 24.4 % (37.0-47.0); MEAN CELL VOLUME 100.4 fl (81.0-99.0); MEAN CORPUSCULAR HGB 30.9 pg (27.0-31.0); MEAN CORPUSCULAR HGB CONC 30.7 g/dl (33.0-37.0); MEAN PLATELET VOLUME 9.5 fl (9.6-12.3); PLATELET COUNT AUTOMATED 305 10*3/uL (130-400); RED BLOOD COUNT 2.43 10*6/uL (4.10-5.10); RED CELL DISTRI WIDTH 16.5 % (0-14.5); WHITE BLOOD COUNT 28.1 10*3/uL (4.8-10.8)
[2020-09-14 06:21] LABS: ALBUMIN 1.8 gm/dl (3.1-4.5); CREATININE 2.23 mg/dL (0.55-1.02); POTASSIUM 4.3 mmol/L (3.5-5.1); TOTAL PROTEIN 5.9 gm/dL (6.4-8.2)
[2020-09-14 07:22] LABS: BURR CELLS FEW; PLATELET SUFFICIENCY NORMAL (NORMAL); POLYCHROMASIA SLIGHT; SCHISTOCYTES FEW; TOTAL CELLS COUNTED 100 #CELLS; TOXIC GRANULATION SLIGHT
[2020-09-14 07:23] LABS: OVALOCYTES FEW
[2020-09-14 08:00] VITALS: BP 100/49; BP 98/47
[2020-09-14 10:34] VITALS: BP 104/48
[2020-09-14 12:00] VITALS: BP 100/52
[2020-09-14 16:00] VITALS: BP 92/45
[2020-09-14 20:00] VITALS: BP 101/55
[2020-09-15] VITALS: BP 112/54
[2020-09-15 06:41] LABS: HEMATOCRIT 22.9 % (37.0-47.0); MEAN CELL VOLUME 98.3 fl (81.0-99.0); MEAN CORPUSCULAR HGB 30.9 pg (27.0-31.0); MEAN CORPUSCULAR HGB CONC 31.4 g/dl (33.0-37.0); MEAN PLATELET VOLUME 9.4 fl (9.6-12.3); PLATELET COUNT AUTOMATED 322 10*3/uL (130-400); RED BLOOD COUNT 2.33 10*6/uL (4.10-5.10); RED CELL DISTRI WIDTH 16.8 % (0-14.5); WHITE BLOOD COUNT 19.2 10*3/uL (4.8-10.8)
[2020-09-15 06:53] LABS: ALBUMIN 1.8 gm/dl (3.1-4.5); CREATININE 3.08 mg/dL (0.55-1.02); POTASSIUM 4.4 mmol/L (3.5-5.1); TOTAL PROTEIN 5.6 gm/dL (6.4-8.2)
[2020-09-15 07:07] LABS: PLATELET SUFFICIENCY NORMAL (NORMAL); SCHISTOCYTES FEW; TOTAL CELLS COUNTED 100 #CELLS
[2020-09-15 08:00] VITALS: BP 119/50
[2020-09-15 12:00] VITALS: BP 104/57
[2020-09-15 16:00] VITALS: BP 116/71
[2020-09-15 20:00] VITALS: BP 115/59; BP 119/62
[2020-09-16] VITALS (24 sets, daily range): BP systolic 102–122; BP diastolic 55–80
[2020-09-16 06:59] LABS: BASO % 0.1 % (0.0-1.0); EOS % 0.1 % (1.0-4.0); HEMATOCRIT 23.6 % (37.0-47.0); LYMPH # 0.4 10*3/uL (1.3-4.4); LYMPH % 2.9 % (27.0-41.0); MEAN CELL VOLUME 100.9 fl (81.0-99.0); MEAN CORPUSCULAR HGB 30.3 pg (27.0-31.0); MEAN CORPUSCULAR HGB CONC 30.1 g/dl (33.0-37.0); MEAN PLATELET VOLUME 9.5 fl (9.6-12.3); MONO # 0.8 10*3/uL (0.1-1.0); MONO % 6.6 % (3.0-9.0); NEUT # 11.1 10*3/uL (2.3-7.9); PLATELET COUNT AUTOMATED 338 10*3/uL (130-400); RED BLOOD COUNT 2.34 10*6/uL (4.10-5.10); RED CELL DISTRI WIDTH 17.2 % (0-14.5); WHITE BLOOD COUNT 12.5 10*3/uL (4.8-10.8)
[2020-09-16 07:27] LABS: CREATININE 2.88 mg/dL (0.55-1.02); POTASSIUM 4.7 mmol/L (3.5-5.1)
[2020-09-17] VITALS: BP 108/62
[2020-09-17 07:09] LABS: HEMATOCRIT 28.3 % (37.0-47.0); MEAN CORPUSCULAR HGB 30.5 pg (27.0-31.0); MEAN CORPUSCULAR HGB CONC 31.4 g/dl (33.0-37.0); MEAN PLATELET VOLUME 9.5 fl (9.6-12.3); PLATELET COUNT AUTOMATED 342 10*3/uL (130-400); RED BLOOD COUNT 2.92 10*6/uL (4.10-5.10); RED CELL DISTRI WIDTH 18.6 % (0-14.5); WHITE BLOOD COUNT 11.7 10*3/uL (4.8-10.8)
[2020-09-17 07:11] LABS: MEAN CELL VOLUME 96.9 fl (81.0-99.0)
[2020-09-17 07:16] LABS: POTASSIUM 4.3 mmol/L (3.5-5.1)
[2020-09-17 08:00] VITALS: BP 131/74
[2020-09-17 08:01] LABS: OVALOCYTES FEW; TOTAL CELLS COUNTED 100 #CELLS; TOXIC GRANULATION SLIGHT
[2020-09-17 08:02] LABS: PLATELET SUFFICIENCY NORMAL (NORMAL)
[2020-09-17 12:00] VITALS: BP 113/67
[2020-09-17 16:00] VITALS: BP 113/65
[2020-09-17 20:00] VITALS: BP 118/66
[2020-09-18] VITALS: BP 109/62
[2020-09-18 06:45] LABS: HEMATOCRIT 28.3 % (37.0-47.0); MEAN CELL VOLUME 97.3 fl (81.0-99.0); MEAN CORPUSCULAR HGB 29.9 pg (27.0-31.0); MEAN CORPUSCULAR HGB CONC 30.7 g/dl (33.0-37.0); MEAN PLATELET VOLUME 9.4 fl (9.6-12.3); PLATELET COUNT AUTOMATED 331 10*3/uL (130-400); RED BLOOD COUNT 2.91 10*6/uL (4.10-5.10); RED CELL DISTRI WIDTH 18.4 % (0-14.5); WHITE BLOOD COUNT 10.1 10*3/uL (4.8-10.8)
[2020-09-18 07:18] LABS: CREATININE 1.42 mg/dL (0.55-1.02)
[2020-09-18 07:26] LABS: BURR CELLS FEW; PLATELET SUFFICIENCY NORMAL (NORMAL); SCHISTOCYTES FEW; TOTAL CELLS COUNTED 100 #CELLS; TOXIC GRANULATION SLIGHT; VACUOLATION OF NEUTROPHILS SLIGHT
[2020-09-18 08:00] VITALS: BP 118/72
[2020-09-18] MEDS ORDERED: Accuneb 0.1.25 MG/3 NEB (11:26)
[2020-09-18] MEDS ORDERED: Flonase 0.05% 120 Me NAS (11:26)
[2020-09-18 12:00] VITALS: BP 123/84
[2020-09-18] MEDS ORDERED: CEFTRIAXONE1 G1 IV (14:21)
== END 2020-09-18 16:31 | DRG 871 ==
LOC: ED 16:28 → EDHOLD 18:03 → 5E 18:03
PROVIDERS: Emergency Medicine; Internal Medicine; ADMIT Internal Medicine; ATTEND Internal Medicine
PROC: 30233N1 Transfusion of Nonautologous Red Blood Cells into Peripheral Vein, Percutaneous Approach (ICD-10-PCS; principal; 2020-09-16)
PROC: 02HV33Z Insertion of Infusion Device into Superior Vena Cava, Percutaneous Approach (ICD-10-PCS; 2020-09-18)
DX: A41.9 Sepsis, unspecified organism (principal); J18.9 Pneumonia, unspecified organism; J96.01 Acute respiratory failure with hypoxia; N17.0 Acute kidney failure with tubular necrosis; E43 Unspecified severe protein-calorie malnutrition; L03.113 Cellulitis of right upper limb; C90.00 Multiple myeloma not having achieved remission; E87.1 Hypo-osmolality and hyponatremia; D68.69 Other thrombophilia; N18.31 Chronic kidney disease, stage 3a; H81.10 Benign paroxysmal vertigo, unspecified ear; I48.0 Paroxysmal atrial fibrillation; D35.02 Benign neoplasm of left adrenal gland; Z20.822 Contact with and (suspected) exposure to COVID-19; Z68.24 Body mass index [BMI] 24.0-24.9, adult; R65.20 Severe sepsis without septic shock; D53.9 Nutritional anemia, unspecified; M06.9 Rheumatoid arthritis, unspecified; M19.93 Secondary osteoarthritis, unspecified site; E04.1 Nontoxic single thyroid nodule; E03.9 Hypothyroidism, unspecified; K44.9 Diaphragmatic hernia without obstruction or gangrene; N28.1 Cyst of kidney, acquired; M81.0 Age-related osteoporosis without current pathological fracture; E78.1 Pure hyperglyceridemia; I25.2 Old myocardial infarction; Z90.49 Acquired absence of other specified parts of digestive tract; Z87.891 Personal history of nicotine dependence; Z88.8 Allergy status to other drugs, medicaments and biological substances; Z79.1 Long term (current) use of non-steroidal anti-inflammatories (NSAID); Z79.899 Other long term (current) drug therapy

== ENCOUNTER 2020-09-27 00:18 | Emergency (ER) | payer MEDICARE ==
[~2020-09-27] VITALS: Ht 170.1 cm; Wt 61.2 kg
[~2020-09-27 00:18] MED LIST changes: +ALDACTONE25 M1 PO; +Accuneb 0.1.25 MG/3 NEB; +CALCIUM 600 MG1 EAC2 PO; +CEFTRIAXONE1 G1 IV; +FLUTICASONE-SA1 EAC4 INH; +Flonase 0.05% 120 Me NAS; +Ipratropium Brom3 ML INH; +LASIX20 MG PO
[2020-09-27 01:27] LABS: ALBUMIN 2.5 gm/dl (3.1-4.5); ALKALINE PHOSPHATASE 93 U/L (45-117); BUN 21 mg/dl (7-24); CHLORIDE 115 mmol/L (98-107); CREATININE 0.86 mg/dL (0.55-1.02); POTASSIUM 4.2 mmol/L (3.5-5.1); SGOT/AST 16 IU/L (3-35); SGPT/ALT 19 U/L (12-78); SODIUM 146 mmol/L (136-145); TOTAL PROTEIN 5.5 gm/dL (6.4-8.2)
[2020-09-27 01:32] LABS: TROPONIN I < 0.015 ng/ml (<0.045)
[2020-09-27 02:20] LABS: BASO % 0.4 % (0.0-1.0); LYMPH # 0.8 10*3/uL (1.3-4.4); LYMPH % 7.9 % (27.0-41.0); MEAN CELL VOLUME 103.1 fl (81.0-99.0); MEAN CORPUSCULAR HGB 30.6 pg (27.0-31.0); MEAN CORPUSCULAR HGB CONC 29.7 g/dl (33.0-37.0); MEAN PLATELET VOLUME 10.1 fl (9.6-12.3); MONO # 0.8 10*3/uL (0.1-1.0); MONO % 7.8 % (3.0-9.0); NEUT # 8.8 10*3/uL (2.3-7.9); NEUT % 82.5 % (47.0-73.0); PLATELET COUNT AUTOMATED 278 10*3/uL (130-400); RED BLOOD COUNT 2.91 10*6/uL (4.10-5.10); RED CELL DISTRI WIDTH 17.6 % (0-14.5); WHITE BLOOD COUNT 10.7 10*3/uL (4.8-10.8)
== END 2020-09-27 05:10 | disposition home or self-care (01) ==
LOC: ED 00:18
PROVIDERS: Emergency Medicine
DX: I50.9 Heart failure, unspecified (principal); N18.9 Chronic kidney disease, unspecified; E03.9 Hypothyroidism, unspecified; I25.2 Old myocardial infarction; I48.91 Unspecified atrial fibrillation; J45.909 Unspecified asthma, uncomplicated; M19.90 Unspecified osteoarthritis, unspecified site; G43.909 Migraine, unspecified, not intractable, without status migrainosus; Z90.710 Acquired absence of both cervix and uterus; Z98.890 Other specified postprocedural states; Z88.8 Allergy status to other drugs, medicaments and biological substances; Z79.899 Other long term (current) drug therapy

== ENCOUNTER 2020-10-27 11:09 | Inpatient (IN) | payer MEDICARE ==
[~2020-10-27] VITALS: Ht 154.9 cm; Wt 61.7 kg
[2020-10-27 11:18] VITALS: BP 112/54
[2020-10-27 12:42] LABS: HEMATOCRIT 24.7 % (37.0-47.0); MEAN PLATELET VOLUME 9.2 fl (9.6-12.3); PLATELET COUNT AUTOMATED 240 10*3/uL (130-400); RED BLOOD COUNT 2.47 10*6/uL (4.10-5.10); WHITE BLOOD COUNT 17.7 10*3/uL (4.8-10.8)
[2020-10-27 12:53] LABS: ACT PARTIAL THROMBO TIME 30.1 SECONDS (20.0-32.1)
[2020-10-27 12:58] LABS: ALBUMIN 2.2 gm/dl (3.1-4.5); ALKALINE PHOSPHATASE 119 U/L (45-117); BUN 29 mg/dl (7-24); CHLORIDE 109 mmol/L (98-107); CREATININE 1.38 mg/dL (0.55-1.02); LIPASE 46 U/L (73-393); POTASSIUM 3.8 mmol/L (3.5-5.1); SGOT/AST 16 IU/L (3-35); SGPT/ALT 24 U/L (12-78); SODIUM 140 mmol/L (136-145); TOTAL PROTEIN 6.2 gm/dL (6.4-8.2); URIC ACID 7.8 mg/dL (2.6-6.0)
[2020-10-27 12:59] LABS: PLATELET SUFFICIENCY NORMAL (NORMAL); TOTAL CELLS COUNTED 100 #CELLS
[2020-10-27 13:01] LABS: TROPONIN I < 0.015 ng/ml (<0.045)
[2020-10-27 14:00] VITALS: BP 113/64
[2020-10-27 15:15] VITALS: BP 132/69
[2020-10-27] MEDS ORDERED: ASPIRIN CHILDRE81 MG PO (15:51)
[2020-10-27] MEDS ORDERED: LASIX40 MG PO (15:51)
[2020-10-27] MEDS ORDERED: ARAVA10 M1 PO (15:55)
[2020-10-27 20:00] VITALS: BP 106/50
[2020-10-28] VITALS: BP 119/55
[2020-10-28 06:15] LABS: HEMATOCRIT 26.2 % (37.0-47.0); MEAN CELL VOLUME 97.8 fl (81.0-99.0); MEAN CORPUSCULAR HGB 29.5 pg (27.0-31.0); MEAN CORPUSCULAR HGB CONC 30.2 g/dl (33.0-37.0); MEAN PLATELET VOLUME 9.7 fl (9.6-12.3); PLATELET COUNT AUTOMATED 291 10*3/uL (130-400); RED BLOOD COUNT 2.68 10*6/uL (4.10-5.10); RED CELL DISTRI WIDTH 16.2 % (0-14.5); WHITE BLOOD COUNT 18.5 10*3/uL (4.8-10.8)
[2020-10-28 06:37] LABS: ALBUMIN 2.1 gm/dl (3.1-4.5); CREATININE 1.09 mg/dL (0.55-1.02); TOTAL PROTEIN 5.8 gm/dL (6.4-8.2)
[2020-10-28 06:43] LABS: FREE T4 1.67 ng/dl (0.76-1.46); THYROID STIM HORMONE (HS) 0.005 uIU/ml (0.358-4.75)
[2020-10-28 07:02] LABS: PLATELET SUFFICIENCY NORMAL (NORMAL); POLYCHROMASIA SLIGHT; TOTAL CELLS COUNTED 100 #CELLS
[2020-10-28 08:00] VITALS: BP 120/66
[2020-10-28 12:00] VITALS: BP 114/52
[2020-10-28 16:00] VITALS: BP 106/55
[2020-10-28 20:00] VITALS: BP 116/60
[2020-10-29] VITALS: BP 109/66
[2020-10-29 06:12] LABS: CREATININE 1.4 mg/dL (0.55-1.02); POTASSIUM 4.1 mmol/L (3.5-5.1)
[2020-10-29 06:26] LABS: BASO % 0.2 % (0.0-1.0); EOS # 0.1 10*3/uL (0.0-0.4); EOS % 0.6 % (1.0-4.0); HEMATOCRIT 26.5 % (37.0-47.0); LYMPH # 0.6 10*3/uL (1.3-4.4); LYMPH % 4.3 % (27.0-41.0); MEAN CELL VOLUME 99.3 fl (81.0-99.0); MEAN CORPUSCULAR HGB 29.6 pg (27.0-31.0); MEAN CORPUSCULAR HGB CONC 29.8 g/dl (33.0-37.0); MONO # 0.7 10*3/uL (0.1-1.0); MONO % 5.8 % (3.0-9.0); NEUT # 11.4 10*3/uL (2.3-7.9); NEUT % 88.3 % (47.0-73.0); PLATELET COUNT AUTOMATED 304 10*3/uL (130-400); RED BLOOD COUNT 2.67 10*6/uL (4.10-5.10); RED CELL DISTRI WIDTH 16.2 % (0-14.5); WHITE BLOOD COUNT 12.9 10*3/uL (4.8-10.8)
[2020-10-29 08:11] VITALS: BP 127/69
[2020-10-29 11:36] VITALS: BP 127/59
[2020-10-29] MEDS ORDERED: DOXYCYCLINE100 M3 PO (14:49)
[2020-10-29 16:00] VITALS: BP 114/67
== END 2020-10-29 17:10 | disposition home health service (06) | DRG 602 ==
LOC: ED 11:09 → EDHOLD 14:13 → 5E 14:13
PROVIDERS: Emergency Medicine; Internal Medicine; Social Worker Clinical; ADMIT Family Medicine; ATTEND Family Medicine
DX: L03.113 Cellulitis of right upper limb (principal); N17.0 Acute kidney failure with tubular necrosis; E44.0 Moderate protein-calorie malnutrition; E83.41 Hypermagnesemia; D53.9 Nutritional anemia, unspecified; D72.9 Disorder of white blood cells, unspecified; E87.8 Other disorders of electrolyte and fluid balance, not elsewhere classified; R73.9 Hyperglycemia, unspecified; I50.9 Heart failure, unspecified; N18.9 Chronic kidney disease, unspecified; K57.90 Diverticulosis of intestine, part unspecified, without perforation or abscess without bleeding; E03.9 Hypothyroidism, unspecified; M81.0 Age-related osteoporosis without current pathological fracture; I48.0 Paroxysmal atrial fibrillation; M06.9 Rheumatoid arthritis, unspecified; E79.0 Hyperuricemia without signs of inflammatory arthritis and tophaceous disease; R74.8 Abnormal levels of other serum enzymes; Z88.8 Allergy status to other drugs, medicaments and biological substances; Z88.4 Allergy status to anesthetic agent; Z90.710 Acquired absence of both cervix and uterus; Z98.49 Cataract extraction status, unspecified eye; Z98.1 Arthrodesis status; Z87.891 Personal history of nicotine dependence; Z83.3 Family history of diabetes mellitus; Z87.01 Personal history of pneumonia (recurrent); I25.2 Old myocardial infarction; Z79.82 Long term (current) use of aspirin; Z79.899 Other long term (current) drug therapy; Z68.25 Body mass index [BMI] 25.0-25.9, adult

== ENCOUNTER → 2020-11-21 | Outpatient (CLI) | payer MEDICARE ==
[~2020-11-21] MED LIST changes: +ASPIRIN CHILDRE81 MG PO; +DOXYCYCLINE100 M3 PO; +LASIX40 MG PO
[2020-11-21 11:19] LABS: BASO # 0.1 10*3/uL (0.0-0.1); BASO % 0.6 % (0.0-1.0); EOS # 0.2 10*3/uL (0.0-0.4); EOS % 1.9 % (1.0-4.0); HEMATOCRIT 29.3 % (37.0-47.0); LYMPH # 0.6 10*3/uL (1.3-4.4); LYMPH % 5.5 % (27.0-41.0); MEAN CELL VOLUME 99.7 fl (81.0-99.0); MEAN CORPUSCULAR HGB 28.9 pg (27.0-31.0); MEAN PLATELET VOLUME 9.5 fl (9.6-12.3); MONO # 0.7 10*3/uL (0.1-1.0); MONO % 6.6 % (3.0-9.0); NEUT % 84.7 % (47.0-73.0); PLATELET COUNT AUTOMATED 331 10*3/uL (130-400); RED BLOOD COUNT 2.94 10*6/uL (4.10-5.10); RED CELL DISTRI WIDTH 16.7 % (0-14.5); WHITE BLOOD COUNT 10.7 10*3/uL (4.8-10.8)
[2020-11-21 11:36] LABS: ALBUMIN 2.9 gm/dl (3.1-4.5); CREATININE 1.37 mg/dL (0.55-1.02); POTASSIUM 4.6 mmol/L (3.5-5.1); TOTAL PROTEIN 6.4 gm/dL (6.4-8.2)
== END | disposition home or self-care (01) ==
LOC: RESCLI 00:37
PROVIDERS: Student in an Organized Health Care Education/Training Program; ATTEND Internal Medicine
DX: M79.2 Neuralgia and neuritis, unspecified (principal); J30.89 Other allergic rhinitis; M54.32 Sciatica, left side; E55.9 Vitamin D deficiency, unspecified; I48.0 Paroxysmal atrial fibrillation; R60.9 Edema, unspecified; M06.9 Rheumatoid arthritis, unspecified; K21.9 Gastro-esophageal reflux disease without esophagitis; Z79.2 Long term (current) use of antibiotics; E79.0 Hyperuricemia without signs of inflammatory arthritis and tophaceous disease; Z79.82 Long term (current) use of aspirin; Z79.899 Other long term (current) drug therapy; Z98.890 Other specified postprocedural states; Z88.8 Allergy status to other drugs, medicaments and biological substances

== ENCOUNTER → 2021-02-12 | Outpatient (CLI) | payer MEDICARE | LOC: WOUNDCARE 09:09 | PROVIDERS: ATTEND Nurse Practitioner | DX: S81.812A Laceration without foreign body, left lower leg, initial encounter (principal); S81.011A Laceration without foreign body, right knee, initial encounter; S81.811A Laceration without foreign body, right lower leg, initial encounter; I13.0 Hypertensive heart and chronic kidney disease with heart failure and stage 1 through stage 4 chronic kidney disease, or unspecified chronic kidney disease; N18.6 End stage renal disease; I50.9 Heart failure, unspecified; A49.02 Methicillin resistant Staphylococcus aureus infection, unspecified site; J45.909 Unspecified asthma, uncomplicated; K21.9 Gastro-esophageal reflux disease without esophagitis; M06.9 Rheumatoid arthritis, unspecified; I48.91 Unspecified atrial fibrillation; Z99.2 Dependence on renal dialysis; X58.XXXA Exposure to other specified factors, initial encounter; Y93.89 Activity, other specified; Y92.89 Other specified places as the place of occurrence of the external cause; Y99.8 Other external cause status ==

== ENCOUNTER → 2021-02-21 | Outpatient (CLI) | payer MEDICARE ==
[~2021-02-21] MED LIST changes: +8 HOUR PAIN RE650 M1 PO; +AQUAPHOR396 GM T; +ARTHRITIS PAIN650 M3 PO; +AVPAK AZITHROM250 M1 PO; +BOOST237 ML PO; +COLACE100 MG PO; +FUROSEMIDE40 MG PO; +LEVOFLOXACIN500 MG PO; +LINEZOLID600 MG PO; +LOPRESSOR25 MG PO
== END ==
LOC: WOUNDCARE 05:31
PROVIDERS: ATTEND Nurse Practitioner
DX: S81.812D Laceration without foreign body, left lower leg, subsequent encounter (principal); A49.02 Methicillin resistant Staphylococcus aureus infection, unspecified site; I13.2 Hypertensive heart and chronic kidney disease with heart failure and with stage 5 chronic kidney disease, or end stage renal disease; I50.9 Heart failure, unspecified; N18.6 End stage renal disease; I48.91 Unspecified atrial fibrillation; J45.909 Unspecified asthma, uncomplicated; K21.9 Gastro-esophageal reflux disease without esophagitis; M06.9 Rheumatoid arthritis, unspecified; Z99.2 Dependence on renal dialysis; X58.XXXD Exposure to other specified factors, subsequent encounter

== ENCOUNTER 2021-02-26 12:36 | Emergency (ER) | payer MEDICARE ==
[~2021-02-26] VITALS: Ht 170.1 cm; Wt 57.6 kg
[~2021-02-26 12:36] MED LIST changes: -8 HOUR PAIN RE650 M1 PO; -AQUAPHOR396 GM T; -ARTHRITIS PAIN650 M3 PO; -AVPAK AZITHROM250 M1 PO; -BOOST237 ML PO; -COLACE100 MG PO; -FUROSEMIDE40 MG PO; -LEVOFLOXACIN500 MG PO; -LINEZOLID600 MG PO; -LOPRESSOR25 MG PO
== END 2021-02-26 13:16 | disposition home or self-care (01) ==
LOC: ED 12:36
DX: R04.0 Epistaxis (principal); N18.9 Chronic kidney disease, unspecified; I50.9 Heart failure, unspecified; I25.2 Old myocardial infarction; I48.0 Paroxysmal atrial fibrillation; Z87.891 Personal history of nicotine dependence; Z90.710 Acquired absence of both cervix and uterus; Z98.890 Other specified postprocedural states; Z79.82 Long term (current) use of aspirin; Z79.899 Other long term (current) drug therapy; Z88.6 Allergy status to analgesic agent; Z88.8 Allergy status to other drugs, medicaments and biological substances; Z99.2 Dependence on renal dialysis

== ENCOUNTER → 2021-02-28 | Outpatient (CLI) | payer MEDICARE ==
[~2021-02-28] MED LIST changes: +8 HOUR PAIN RE650 M1 PO; +AQUAPHOR396 GM T; +ARTHRITIS PAIN650 M3 PO; +AVPAK AZITHROM250 M1 PO; +BOOST237 ML PO; +COLACE100 MG PO; +FUROSEMIDE40 MG PO; +LEVOFLOXACIN500 MG PO; +LINEZOLID600 MG PO; +LOPRESSOR25 MG PO
== END ==
LOC: WOUNDCARE 01:59
PROVIDERS: ATTEND Nurse Practitioner
DX: S81.812D Laceration without foreign body, left lower leg, subsequent encounter (principal); A49.02 Methicillin resistant Staphylococcus aureus infection, unspecified site; I13.2 Hypertensive heart and chronic kidney disease with heart failure and with stage 5 chronic kidney disease, or end stage renal disease; I50.9 Heart failure, unspecified; N18.6 End stage renal disease; I48.91 Unspecified atrial fibrillation; J45.909 Unspecified asthma, uncomplicated; K21.9 Gastro-esophageal reflux disease without esophagitis; M06.9 Rheumatoid arthritis, unspecified; Z99.2 Dependence on renal dialysis; X58.XXXD Exposure to other specified factors, subsequent encounter

== ENCOUNTER → 2021-03-07 | Outpatient (CLI) | payer MEDICARE | LOC: WOUNDCARE 01:42 | PROVIDERS: ATTEND Nurse Practitioner Primary Care | DX: S81.812D Laceration without foreign body, left lower leg, subsequent encounter (principal); S81.811D Laceration without foreign body, right lower leg, subsequent encounter; S81.011D Laceration without foreign body, right knee, subsequent encounter; A49.02 Methicillin resistant Staphylococcus aureus infection, unspecified site; I13.2 Hypertensive heart and chronic kidney disease with heart failure and with stage 5 chronic kidney disease, or end stage renal disease; I50.9 Heart failure, unspecified; N18.6 End stage renal disease; I48.91 Unspecified atrial fibrillation; K21.9 Gastro-esophageal reflux disease without esophagitis; J45.909 Unspecified asthma, uncomplicated; M06.9 Rheumatoid arthritis, unspecified; Z99.2 Dependence on renal dialysis; X58.XXXD Exposure to other specified factors, subsequent encounter ==

== ENCOUNTER 2021-03-13 10:05 | Emergency (ER) | payer MEDICARE ==
[2021-03-13] VITALS (10 sets, daily range): BP systolic 110–140; BP diastolic 47–74
[~2021-03-13] VITALS: Ht 170.1 cm; Wt 65.8 kg
[~2021-03-13 10:05] MED LIST changes: -8 HOUR PAIN RE650 M1 PO; -AQUAPHOR396 GM T; -ARTHRITIS PAIN650 M3 PO; -AVPAK AZITHROM250 M1 PO; -BOOST237 ML PO; -COLACE100 MG PO; -FUROSEMIDE40 MG PO; -LEVOFLOXACIN500 MG PO; -LINEZOLID600 MG PO; -LOPRESSOR25 MG PO
[2021-03-13 10:54] LABS: MEAN PLATELET VOLUME 9.1 fl (9.6-12.3); NUCLEATED RED BLOOD CELL 0.2 % (0.0-0.0); PLATELET COUNT AUTOMATED 313 10*3/uL (130-400); RED BLOOD COUNT 2.07 10*6/uL (4.10-5.10); RED CELL DISTRI WIDTH 15.2 % (0-14.5); WHITE BLOOD COUNT 8.9 10*3/uL (4.8-10.8)
[2021-03-13 10:59] LABS: HEMATOCRIT 20.7 % (37.0-47.0)
[2021-03-13 11:06] LABS: CREATININE 1.75 mg/dL (0.55-1.02); POTASSIUM 3.9 mmol/L (3.5-5.1)
[2021-03-13 11:21] LABS: PLATELET SUFFICIENCY NORMAL (NORMAL); TOTAL CELLS COUNTED 100 #CELLS
[2021-03-13 21:41] LABS: HEMATOCRIT 28.1 % (37.0-47.0)
== END 2021-03-13 22:15 ==
LOC: ED 10:05
PROVIDERS: Emergency Medicine; Internal Medicine
DX: D64.9 Anemia, unspecified (principal); I50.9 Heart failure, unspecified; N18.6 End stage renal disease; Z88.8 Allergy status to other drugs, medicaments and biological substances; Z79.899 Other long term (current) drug therapy; Z79.2 Long term (current) use of antibiotics; Z79.82 Long term (current) use of aspirin; Z90.711 Acquired absence of uterus with remaining cervical stump; Z98.890 Other specified postprocedural states; Z87.891 Personal history of nicotine dependence; Z99.2 Dependence on renal dialysis

== ENCOUNTER → 2021-03-19 | Outpatient (CLI) | payer MEDICARE ==
[~2021-03-19] MED LIST changes: +8 HOUR PAIN RE650 M1 PO; +AQUAPHOR396 GM T; +ARTHRITIS PAIN650 M3 PO; +AVPAK AZITHROM250 M1 PO; +BOOST237 ML PO; +COLACE100 MG PO; +FUROSEMIDE40 MG PO; +LEVOFLOXACIN500 MG PO; +LINEZOLID600 MG PO; +LOPRESSOR25 MG PO
== END ==
LOC: WOUNDCARE 03-14 08:40
PROVIDERS: ATTEND Nurse Practitioner
DX: S81.812D Laceration without foreign body, left lower leg, subsequent encounter (principal); S81.811D Laceration without foreign body, right lower leg, subsequent encounter; S81.011D Laceration without foreign body, right knee, subsequent encounter; A49.02 Methicillin resistant Staphylococcus aureus infection, unspecified site; I13.2 Hypertensive heart and chronic kidney disease with heart failure and with stage 5 chronic kidney disease, or end stage renal disease; I50.9 Heart failure, unspecified; N18.6 End stage renal disease; I48.91 Unspecified atrial fibrillation; K21.9 Gastro-esophageal reflux disease without esophagitis; J45.909 Unspecified asthma, uncomplicated; M06.9 Rheumatoid arthritis, unspecified; Z99.2 Dependence on renal dialysis; X58.XXXD Exposure to other specified factors, subsequent encounter

== ENCOUNTER 2021-04-06 10:43 | Inpatient (IN) | payer MEDICARE ==
[~2021-04-06] VITALS: Ht 170.1 cm; Wt 59.1 kg
[~2021-04-06 10:43] MED LIST changes: -8 HOUR PAIN RE650 M1 PO; -AQUAPHOR396 GM T; -ARTHRITIS PAIN650 M3 PO; -AVPAK AZITHROM250 M1 PO; -BOOST237 ML PO; -COLACE100 MG PO; -FUROSEMIDE40 MG PO; -LEVOFLOXACIN500 MG PO; -LINEZOLID600 MG PO; -LOPRESSOR25 MG PO
[2021-04-06 10:53] VITALS: BP 128/61
[2021-04-06 11:10] LABS: BASO % 0.3 % (0.0-1.0); EOS # 0.1 10*3/uL (0.0-0.4); EOS % 0.6 % (1.0-4.0); HEMATOCRIT 25.5 % (37.0-47.0); LYMPH # 0.5 10*3/uL (1.3-4.4); MEAN CELL VOLUME 93.1 fl (81.0-99.0); MEAN CORPUSCULAR HGB 28.1 pg (27.0-31.0); MEAN CORPUSCULAR HGB CONC 30.2 g/dl (33.0-37.0); MEAN PLATELET VOLUME 9.4 fl (9.6-12.3); MONO # 0.6 10*3/uL (0.1-1.0); MONO % 5.6 % (3.0-9.0); NEUT # 9.3 10*3/uL (2.3-7.9); NEUT % 86.5 % (47.0-73.0); NUCLEATED RED BLOOD CELL 0.1 10*3/uL (0.0-0.0); NUCLEATED RED BLOOD CELL 0.6 % (0.0-0.0); PLATELET COUNT AUTOMATED 339 10*3/uL (130-400); RED BLOOD COUNT 2.74 10*6/uL (4.10-5.10); RED CELL DISTRI WIDTH 15.9 % (0-14.5); WHITE BLOOD COUNT 10.7 10*3/uL (4.8-10.8)
[2021-04-06 11:30] LABS: ALBUMIN 2.7 gm/dl (3.1-4.5); ALKALINE PHOSPHATASE 76 U/L (45-117); BUN 41 mg/dl (7-24); CHLORIDE 108 mmol/L (98-107); CREATININE 1.69 mg/dL (0.55-1.02); POTASSIUM 3.8 mmol/L (3.5-5.1); SGOT/AST 16 IU/L (3-35); SGPT/ALT 19 U/L (12-78); SODIUM 142 mmol/L (136-145); TOTAL PROTEIN 6.3 gm/dL (6.4-8.2)
[2021-04-06 11:34] LABS: TROPONIN I < 0.015 ng/ml (<0.045)
[2021-04-06 12:30] VITALS: BP 118/64
[2021-04-06] MEDS ORDERED: BOOST237 ML PO (13:54)
[2021-04-06 13:57] LABS: BILIRUBIN Negative (Negative); BLOOD Negative (Negative); CLARITY Clear (Clear); COLOR Yellow (Yellow); GLUCOSE Negative (Negative); KETONE Negative (Negative); LEUKO ESTERASE Negative (Negative); NITRITE Negative (Negative); UROBILINOGEN 0.2 E.U./dl (0.0-1.0)
[2021-04-06] MEDS ORDERED: LEVOFLOXACIN500 MG PO (13:58)
[2021-04-06 14:05] LABS: BACTERIA TRACE; EPITHELIAL CELLS 0-2; RBC 0-2 rbc/hpf (0-2); WBC 0-2 wbc/hpf (0-5); YEAST 2+
[2021-04-06 14:06] LABS: URINE CREATININE RANDOM 17.6 mg/dL
[2021-04-06] MEDS ORDERED: ARTHRITIS PAIN650 M3 PO (14:34)
[2021-04-06] MEDS ORDERED: COLACE100 MG PO (14:35)
[2021-04-06] MEDS ORDERED: LOPRESSOR25 MG PO (14:38)
[2021-04-06] MEDS ORDERED: 8 HOUR PAIN RE650 M1 PO (14:40)
[2021-04-06] MEDS ORDERED: AQUAPHOR396 GM T (14:43)
[2021-04-06 16:00] VITALS: BP 124/70
[2021-04-06 20:00] VITALS: BP 120/53
[2021-04-07] VITALS: BP 121/61
[2021-04-07 05:53] LABS: CREATININE 1.75 mg/dL (0.55-1.02); FREE T4 1.31 ng/dl (0.76-1.46); POTASSIUM 4.1 mmol/L (3.5-5.1)
[2021-04-07 06:00] LABS: THYROID STIM HORMONE (HS) 0.055 uIU/ml (0.358-4.75)
[2021-04-07 06:04] LABS: MEAN CELL VOLUME 92.2 fl (81.0-99.0); MEAN CORPUSCULAR HGB CONC 29.2 g/dl (33.0-37.0); MEAN PLATELET VOLUME 9.6 fl (9.6-12.3); NUCLEATED RED BLOOD CELL 0.5 % (0.0-0.0); PLATELET COUNT AUTOMATED 323 10*3/uL (130-400); RED BLOOD COUNT 2.82 10*6/uL (4.10-5.10); RED CELL DISTRI WIDTH 15.9 % (0-14.5); WHITE BLOOD COUNT 8.5 10*3/uL (4.8-10.8)
[2021-04-07 07:25] LABS: BASOPHILS 1 % (0-1); PLATELET SUFFICIENCY NORMAL (NORMAL); TOTAL CELLS COUNTED 100 #CELLS
[2021-04-07 07:26] LABS: POLYCHROMASIA SLIGHT
[2021-04-07 08:00] VITALS: BP 119/69
[2021-04-07 12:00] VITALS: BP 115/67
[2021-04-07 16:00] VITALS: BP 107/52
[2021-04-07 20:00] VITALS: BP 124/56
[2021-04-08] VITALS: BP 121/67
[2021-04-08 06:08] LABS: BASO % 0.1 % (0.0-1.0); HEMATOCRIT 25.1 % (37.0-47.0); LYMPH # 0.4 10*3/uL (1.3-4.4); LYMPH % 4.6 % (27.0-41.0); MEAN CORPUSCULAR HGB 27.4 pg (27.0-31.0); MEAN CORPUSCULAR HGB CONC 29.5 g/dl (33.0-37.0); MEAN PLATELET VOLUME 9.4 fl (9.6-12.3); MONO # 0.6 10*3/uL (0.1-1.0); MONO % 7.3 % (3.0-9.0); NEUT # 7.5 10*3/uL (2.3-7.9); NEUT % 85.9 % (47.0-73.0); NUCLEATED RED BLOOD CELL 0.3 % (0.0-0.0); PLATELET COUNT AUTOMATED 317 10*3/uL (130-400); RED CELL DISTRI WIDTH 15.9 % (0-14.5); WHITE BLOOD COUNT 8.7 10*3/uL (4.8-10.8)
[2021-04-08 06:38] LABS: POTASSIUM 4.4 mmol/L (3.5-5.1)
[2021-04-08 06:44] LABS: CREATININE 1.85 mg/dL (0.55-1.02)
[2021-04-08 08:00] VITALS: BP 121/66
[2021-04-08 12:00] VITALS: BP 112/62
[2021-04-08 16:00] VITALS: BP 110/56
[2021-04-08 18:10] LABS: HEMATOCRIT 30.4 % (37.0-47.0)
[2021-04-08 18:22] LABS: ALBUMIN 3.2 gm/dl (3.1-4.5); CHLORIDE 99 mmol/L (98-107); CREATININE 0.96 mg/dL (0.55-1.02); POTASSIUM 3.8 mmol/L (3.5-5.1); SODIUM 134 mmol/L (136-145)
[2021-04-08 18:23] LABS: BUN 20 mg/dl (7-24)
[2021-04-08 20:00] VITALS: BP 128/62
[2021-04-09] VITALS: BP 122/60
[2021-04-09 06:40] LABS: BASO % 0.1 % (0.0-1.0); HEMATOCRIT 27.1 % (37.0-47.0); LYMPH # 0.5 10*3/uL (1.3-4.4); LYMPH % 4.1 % (27.0-41.0); MEAN CELL VOLUME 91.6 fl (81.0-99.0); MEAN CORPUSCULAR HGB 27.7 pg (27.0-31.0); MEAN CORPUSCULAR HGB CONC 30.3 g/dl (33.0-37.0); MEAN PLATELET VOLUME 9.2 fl (9.6-12.3); MONO # 0.9 10*3/uL (0.1-1.0); NEUT # 9.7 10*3/uL (2.3-7.9); NEUT % 85.5 % (47.0-73.0); NUCLEATED RED BLOOD CELL 0.1 10*3/uL (0.0-0.0); NUCLEATED RED BLOOD CELL 0.4 % (0.0-0.0); PLATELET COUNT AUTOMATED 298 10*3/uL (130-400); RED BLOOD COUNT 2.96 10*6/uL (4.10-5.10); RED CELL DISTRI WIDTH 15.8 % (0-14.5); WHITE BLOOD COUNT 11.3 10*3/uL (4.8-10.8)
[2021-04-09 07:02] LABS: ALBUMIN 2.8 gm/dl (3.1-4.5); CREATININE 1.48 mg/dL (0.55-1.02); POTASSIUM 4.5 mmol/L (3.5-5.1)
[2021-04-09 07:04] LABS: TOTAL PROTEIN 6.6 gm/dL (6.4-8.2)
[2021-04-09 12:19] VITALS: BP 122/60
[2021-04-09 16:16] VITALS: BP 122/60
[2021-04-09 20:00] VITALS: BP 117/58
[2021-04-10] VITALS: BP 122/73
[2021-04-10 06:27] LABS: HEMATOCRIT 27.3 % (37.0-47.0); MEAN CELL VOLUME 91.3 fl (81.0-99.0); MEAN CORPUSCULAR HGB 27.1 pg (27.0-31.0); MEAN CORPUSCULAR HGB CONC 29.7 g/dl (33.0-37.0); MEAN PLATELET VOLUME 9.2 fl (9.6-12.3); NUCLEATED RED BLOOD CELL 0.2 % (0.0-0.0); PLATELET COUNT AUTOMATED 316 10*3/uL (130-400); RED BLOOD COUNT 2.99 10*6/uL (4.10-5.10); RED CELL DISTRI WIDTH 15.8 % (0-14.5); WHITE BLOOD COUNT 15.8 10*3/uL (4.8-10.8)
[2021-04-10 06:40] LABS: ALBUMIN 2.3 gm/dl (3.1-4.5); CREATININE 1.72 mg/dL (0.55-1.02); POTASSIUM 4.2 mmol/L (3.5-5.1)
[2021-04-10 07:19] LABS: PLATELET SUFFICIENCY NORMAL (NORMAL); SCHISTOCYTES FEW; TOTAL CELLS COUNTED 100 #CELLS
[2021-04-10 08:00] VITALS: BP 103/47
[2021-04-10 12:00] VITALS: BP 125/73
[2021-04-10 12:51] LABS: ABG BASE EXCESS 2.2 mmol/L (-2.0-2.0); ARTERIAL BLOOD GAS PH 7.461 (7.35-7.45); ARTERIAL BLOOD GAS PO2 57.5 (80-90)
[2021-04-10 16:00] VITALS: BP 125/73
[2021-04-11] VITALS: BP 124/77
[2021-04-11 06:28] LABS: HEMATOCRIT 28.4 % (37.0-47.0); MEAN CELL VOLUME 92.5 fl (81.0-99.0); MEAN CORPUSCULAR HGB CONC 29.2 g/dl (33.0-37.0); MEAN PLATELET VOLUME 9.4 fl (9.6-12.3); NUCLEATED RED BLOOD CELL 0.2 % (0.0-0.0); PLATELET COUNT AUTOMATED 299 10*3/uL (130-400); RED BLOOD COUNT 3.07 10*6/uL (4.10-5.10); RED CELL DISTRI WIDTH 15.9 % (0-14.5); WHITE BLOOD COUNT 12.6 10*3/uL (4.8-10.8)
[2021-04-11 07:15] LABS: POTASSIUM 4.8 mmol/L (3.5-5.1)
[2021-04-11 07:16] LABS: CREATININE 1.63 mg/dL (0.55-1.02)
[2021-04-11 07:25] LABS: PLATELET SUFFICIENCY NORMAL (NORMAL); TOTAL CELLS COUNTED 100 #CELLS
[2021-04-11 08:00] VITALS: BP 122/53
[2021-04-11 12:00] VITALS: BP 135/77
[2021-04-11 16:00] VITALS: BP 130/74
[2021-04-11 20:13] VITALS: BP 136/78
[2021-04-11 23:43] LABS: BILIRUBIN Negative (Negative); BLOOD Negative (Negative); CLARITY Clear (Clear); COLOR Yellow (Yellow); GLUCOSE Negative (Negative); KETONE Negative (Negative); LEUKO ESTERASE Negative (Negative); NITRITE Negative (Negative); SPECIFIC GRAVITY 1.015 (1.001-1.030); UROBILINOGEN 0.2 E.U./dl (0.0-1.0)
[2021-04-12] VITALS (9 sets, daily range): BP systolic 112–134; BP diastolic 54–78
[2021-04-12 00:06] LABS: WBC 0-2 wbc/hpf (0-5); YEAST 1+
[2021-04-12 06:04] LABS: HEMATOCRIT 25.5 % (37.0-47.0); MEAN CELL VOLUME 91.1 fl (81.0-99.0); MEAN CORPUSCULAR HGB 27.1 pg (27.0-31.0); MEAN CORPUSCULAR HGB CONC 29.8 g/dl (33.0-37.0); MEAN PLATELET VOLUME 9.5 fl (9.6-12.3); NUCLEATED RED BLOOD CELL 0.1 % (0.0-0.0); PLATELET COUNT AUTOMATED 321 10*3/uL (130-400); RED CELL DISTRI WIDTH 15.9 % (0-14.5); WHITE BLOOD COUNT 13.9 10*3/uL (4.8-10.8)
[2021-04-12 06:09] LABS: CREATININE 1.66 mg/dL (0.55-1.02); POTASSIUM 4.3 mmol/L (3.5-5.1)
[2021-04-12 07:23] LABS: PLATELET SUFFICIENCY NORMAL (NORMAL); TOTAL CELLS COUNTED 100 #CELLS
[2021-04-13] VITALS: BP 120/57
[2021-04-13 07:00] LABS: HEMATOCRIT 24.1 % (37.0-47.0); MEAN CELL VOLUME 88.9 fl (81.0-99.0); MEAN CORPUSCULAR HGB 26.9 pg (27.0-31.0); MEAN CORPUSCULAR HGB CONC 30.3 g/dl (33.0-37.0); MEAN PLATELET VOLUME 9.6 fl (9.6-12.3); NUCLEATED RED BLOOD CELL 0.1 % (0.0-0.0); PLATELET COUNT AUTOMATED 350 10*3/uL (130-400); RED BLOOD COUNT 2.71 10*6/uL (4.10-5.10); RED CELL DISTRI WIDTH 15.9 % (0-14.5); WHITE BLOOD COUNT 16.1 10*3/uL (4.8-10.8)
[2021-04-13 07:32] LABS: POTASSIUM 4.3 mmol/L (3.5-5.1)
[2021-04-13 07:35] LABS: CREATININE 1.64 mg/dL (0.55-1.02)
[2021-04-13 08:04] LABS: PLATELET SUFFICIENCY NORMAL (NORMAL); TOTAL CELLS COUNTED 100 #CELLS
[2021-04-13 11:07] LABS: ACID FAST SPEC PROCESSING Concentration (.)
[2021-04-13 12:00] VITALS: BP 120/58
[2021-04-13 16:00] VITALS: BP 112/58
[2021-04-13 20:00] VITALS: BP 106/56
[2021-04-14] VITALS: BP 113/54
[2021-04-14 06:28] LABS: HEMATOCRIT 24.1 % (37.0-47.0); MEAN CELL VOLUME 87.6 fl (81.0-99.0); MEAN CORPUSCULAR HGB 26.5 pg (27.0-31.0); MEAN CORPUSCULAR HGB CONC 30.3 g/dl (33.0-37.0); MEAN PLATELET VOLUME 9.6 fl (9.6-12.3); NUCLEATED RED BLOOD CELL 0.1 % (0.0-0.0); PLATELET COUNT AUTOMATED 341 10*3/uL (130-400); RED BLOOD COUNT 2.75 10*6/uL (4.10-5.10); RED CELL DISTRI WIDTH 15.6 % (0-14.5)
[2021-04-14 06:54] LABS: ALBUMIN 2.4 gm/dl (3.1-4.5); CREATININE 1.58 mg/dL (0.55-1.02); POTASSIUM 4.6 mmol/L (3.5-5.1)
[2021-04-14 06:57] LABS: TOTAL PROTEIN 5.7 gm/dL (6.4-8.2)
[2021-04-14 08:00] VITALS: BP 109/61
[2021-04-14 09:06] LABS: PLATELET SUFFICIENCY NORMAL (NORMAL); TOTAL CELLS COUNTED 100 #CELLS
[2021-04-14 12:00] VITALS: BP 119/59
[2021-04-14 16:00] VITALS: BP 99/46
[2021-04-14 20:00] VITALS: BP 117/51
[2021-04-15] VITALS: BP 114/50
[2021-04-15 06:55] LABS: MEAN CELL VOLUME 88.8 fl (81.0-99.0); MEAN CORPUSCULAR HGB CONC 30.4 g/dl (33.0-37.0); MEAN PLATELET VOLUME 9.5 fl (9.6-12.3); NUCLEATED RED BLOOD CELL 0.1 % (0.0-0.0); PLATELET COUNT AUTOMATED 310 10*3/uL (130-400); RED BLOOD COUNT 2.59 10*6/uL (4.10-5.10); RED CELL DISTRI WIDTH 15.8 % (0-14.5); WHITE BLOOD COUNT 19.7 10*3/uL (4.8-10.8)
[2021-04-15 07:13] LABS: POTASSIUM 4.9 mmol/L (3.5-5.1)
[2021-04-15 07:19] LABS: CREATININE 2.44 mg/dL (0.55-1.02)
[2021-04-15 07:51] LABS: PLATELET SUFFICIENCY NORMAL (NORMAL); TOTAL CELLS COUNTED 100 #CELLS
[2021-04-15 07:53] LABS: POLYCHROMASIA SLIGHT
[2021-04-15 08:00] VITALS: BP 119/58
[2021-04-15 16:00] VITALS: BP 97/55
[2021-04-15 20:00] VITALS: BP 115/71
[2021-04-16] VITALS: BP 100/60
[2021-04-16 07:14] LABS: MEAN CELL VOLUME 87.9 fl (81.0-99.0); MEAN CORPUSCULAR HGB 26.7 pg (27.0-31.0); MEAN CORPUSCULAR HGB CONC 30.4 g/dl (33.0-37.0); MEAN PLATELET VOLUME 10.3 fl (9.6-12.3); PLATELET COUNT AUTOMATED 358 10*3/uL (130-400); RED BLOOD COUNT 2.73 10*6/uL (4.10-5.10); RED CELL DISTRI WIDTH 15.9 % (0-14.5); WHITE BLOOD COUNT 19.2 10*3/uL (4.8-10.8)
[2021-04-16 07:18] LABS: CREATININE 2.13 mg/dL (0.55-1.02); POTASSIUM 5.1 mmol/L (3.5-5.1)
[2021-04-16 07:56] LABS: PLATELET SUFFICIENCY NORMAL (NORMAL); STOMATOCYTE FEW; TOTAL CELLS COUNTED 100 #CELLS
[2021-04-16 08:00] VITALS: BP 108/52
[2021-04-16 12:00] VITALS: BP 102/52
[2021-04-16] MEDS ORDERED: LINEZOLID600 MG PO (13:14)
[2021-04-16] MEDS ORDERED: AVPAK AZITHROM250 M1 PO (13:14)
[2021-04-16] MEDS ORDERED: FUROSEMIDE40 MG PO (13:14)
[2021-04-16 16:00] VITALS: BP 109/53
[2021-04-26 00:05] LABS: ORGANISM ID, MOLD Final report (.)
== END 2021-04-16 18:40 | disposition home or self-care (01) | DRG 193 ==
LOC: ED 10:43 → EDHOLD 11:44 → 4E 11:44 → 5E 11:53 → 4E 17:39
PROVIDERS: Emergency Medicine; Hospitalist; Internal Medicine; Internal Medicine Critical Care Medicine; Internal Medicine Nephrology; Social Worker Clinical; Student in an Organized Health Care Education/Training Program; ADMIT Student in an Organized Health Care Education/Training Program; ATTEND Student in an Organized Health Care Education/Training Program
PROC: 5A1D70Z Performance of Urinary Filtration, Intermittent, Less than 6 Hours Per Day (ICD-10-PCS; 2021-04-08)
PROC: 5A1D70Z Performance of Urinary Filtration, Intermittent, Less than 6 Hours Per Day (ICD-10-PCS; 2021-04-09)
PROC: 0BC98ZZ Extirpation of Matter from Lingula Bronchus, Via Natural or Artificial Opening Endoscopic (ICD-10-PCS; principal; 2021-04-12)
PROC: 0BC48ZZ Extirpation of Matter from Right Upper Lobe Bronchus, Via Natural or Artificial Opening Endoscopic (ICD-10-PCS; 2021-04-12)
PROC: 0BC88ZZ Extirpation of Matter from Left Upper Lobe Bronchus, Via Natural or Artificial Opening Endoscopic (ICD-10-PCS; 2021-04-12)
PROC: 0BC58ZZ Extirpation of Matter from Right Middle Lobe Bronchus, Via Natural or Artificial Opening Endoscopic (ICD-10-PCS; 2021-04-12)
PROC: 0BC38ZZ Extirpation of Matter from Right Main Bronchus, Via Natural or Artificial Opening Endoscopic (ICD-10-PCS; 2021-04-12)
PROC: 0BC78ZZ Extirpation of Matter from Left Main Bronchus, Via Natural or Artificial Opening Endoscopic (ICD-10-PCS; 2021-04-12)
PROC: 0BC68ZZ Extirpation of Matter from Right Lower Lobe Bronchus, Via Natural or Artificial Opening Endoscopic (ICD-10-PCS; 2021-04-12)
PROC: 0BCB8ZZ Extirpation of Matter from Left Lower Lobe Bronchus, Via Natural or Artificial Opening Endoscopic (ICD-10-PCS; 2021-04-12)
PROC: 0BC18ZZ Extirpation of Matter from Trachea, Via Natural or Artificial Opening Endoscopic (ICD-10-PCS; 2021-04-12)
PROC: 5A1D70Z Performance of Urinary Filtration, Intermittent, Less than 6 Hours Per Day (ICD-10-PCS; 2021-04-15)
DX: J15.9 Unspecified bacterial pneumonia (principal); N17.0 Acute kidney failure with tubular necrosis; I50.33 Acute on chronic diastolic (congestive) heart failure; J96.01 Acute respiratory failure with hypoxia; E43 Unspecified severe protein-calorie malnutrition; A48.3 Toxic shock syndrome; N18.6 End stage renal disease; T17.590A Other foreign object in bronchus causing asphyxiation, initial encounter; C90.00 Multiple myeloma not having achieved remission; I48.21 Permanent atrial fibrillation; R04.2 Hemoptysis; Z68.1 Body mass index [BMI] 19.9 or less, adult; E03.9 Hypothyroidism, unspecified; K57.90 Diverticulosis of intestine, part unspecified, without perforation or abscess without bleeding; Z66 Do not resuscitate; Z51.5 Encounter for palliative care; D50.9 Iron deficiency anemia, unspecified; A49.01 Methicillin susceptible Staphylococcus aureus infection, unspecified site; X58.XXXA Exposure to other specified factors, initial encounter; J40 Bronchitis, not specified as acute or chronic; D64.9 Anemia, unspecified; E87.8 Other disorders of electrolyte and fluid balance, not elsewhere classified; M06.9 Rheumatoid arthritis, unspecified; Z20.822 Contact with and (suspected) exposure to COVID-19; Z99.2 Dependence on renal dialysis; Y93.89 Activity, other specified; Y92.89 Other specified places as the place of occurrence of the external cause; Y99.8 Other external cause status; Z90.710 Acquired absence of both cervix and uterus; Z79.51 Long term (current) use of inhaled steroids; Z79.899 Other long term (current) drug therapy; Z79.82 Long term (current) use of aspirin

== ENCOUNTER 2021-04-17 12:28 | Inpatient (IN) | payer MEDICARE ==
[2021-04-17] VITALS (8 sets, daily range): BP systolic 102–126; BP diastolic 49–69
[~2021-04-17] VITALS: Ht 170.1 cm; Wt 63.2 kg
[~2021-04-17 12:28] MED LIST changes: +8 HOUR PAIN RE650 M1 PO; +AQUAPHOR396 GM T; +ARTHRITIS PAIN650 M3 PO; +AVPAK AZITHROM250 M1 PO; +BOOST237 ML PO; +COLACE100 MG PO; +FUROSEMIDE40 MG PO; +LEVOFLOXACIN500 MG PO; +LINEZOLID600 MG PO; +LOPRESSOR25 MG PO
[2021-04-17 13:00] LABS: HEMATOCRIT 25.2 % (37.0-47.0); MEAN CELL VOLUME 88.1 fl (81.0-99.0); MEAN CORPUSCULAR HGB 27.3 pg (27.0-31.0); MEAN PLATELET VOLUME 9.9 fl (9.6-12.3); NUCLEATED RED BLOOD CELL 0.1 % (0.0-0.0); PLATELET COUNT AUTOMATED 342 10*3/uL (130-400); RED BLOOD COUNT 2.86 10*6/uL (4.10-5.10); RED CELL DISTRI WIDTH 16.1 % (0-14.5); WHITE BLOOD COUNT 27.2 10*3/uL (4.8-10.8)
[2021-04-17 13:16] LABS: ALBUMIN 2.8 gm/dl (3.1-4.5); CREATININE 2.79 mg/dL (0.55-1.02); POTASSIUM 4.9 mmol/L (3.5-5.1); TOTAL PROTEIN 6.1 gm/dL (6.4-8.2); TROPONIN I 0.027 ng/ml (<0.045)
[2021-04-17 13:26] LABS: POLYCHROMASIA SLIGHT; TOTAL CELLS COUNTED 100 #CELLS
[2021-04-17 13:30] LABS: PLATELET SUFFICIENCY NORMAL (NORMAL)
[2021-04-18] VITALS (7 sets, daily range): BP systolic 102–130; BP diastolic 47–68
[2021-04-18 06:51] LABS: HEMATOCRIT 23.8 % (37.0-47.0); MEAN CELL VOLUME 89.1 fl (81.0-99.0); MEAN CORPUSCULAR HGB CONC 30.3 g/dl (33.0-37.0); MEAN PLATELET VOLUME 10.3 fl (9.6-12.3); PLATELET COUNT AUTOMATED 293 10*3/uL (130-400); RED BLOOD COUNT 2.67 10*6/uL (4.10-5.10); RED CELL DISTRI WIDTH 16.4 % (0-14.5); WHITE BLOOD COUNT 23.8 10*3/uL (4.8-10.8)
[2021-04-18 07:22] LABS: ALBUMIN 2.5 gm/dl (3.1-4.5); CREATININE 2.82 mg/dL (0.55-1.02); POTASSIUM 4.7 mmol/L (3.5-5.1); TOTAL PROTEIN 5.8 gm/dL (6.4-8.2)
[2021-04-18 08:13] LABS: PLATELET SUFFICIENCY NORMAL (NORMAL); ROULEAUX MODERATE; TOTAL CELLS COUNTED 100 #CELLS
[2021-04-19] VITALS: BP 108/59
[2021-04-19 05:33] LABS: CREATININE 2.62 mg/dL (0.55-1.02); POTASSIUM 4.4 mmol/L (3.5-5.1)
[2021-04-19 06:18] LABS: HEMATOCRIT 23.8 % (37.0-47.0); MEAN CELL VOLUME 88.5 fl (81.0-99.0); MEAN CORPUSCULAR HGB 26.4 pg (27.0-31.0); MEAN CORPUSCULAR HGB CONC 29.8 g/dl (33.0-37.0); MEAN PLATELET VOLUME 10.7 fl (9.6-12.3); PLATELET COUNT AUTOMATED 272 10*3/uL (130-400); RED BLOOD COUNT 2.69 10*6/uL (4.10-5.10); RED CELL DISTRI WIDTH 16.8 % (0-14.5); WHITE BLOOD COUNT 20.9 10*3/uL (4.8-10.8)
[2021-04-19 07:24] LABS: TOTAL CELLS COUNTED 100 #CELLS
[2021-04-19 07:26] LABS: PLATELET SUFFICIENCY NORMAL (NORMAL)
[2021-04-19 12:00] VITALS: BP 99/53
[2021-04-19 16:00] VITALS: BP 109/52; BP 110/55
[2021-04-19 20:00] VITALS: BP 121/88
[2021-04-20] VITALS (12 sets, daily range): BP systolic 92–128; BP diastolic 48–69
[2021-04-20 06:31] LABS: HEMATOCRIT 21.8 % (37.0-47.0); MEAN CELL VOLUME 90.8 fl (81.0-99.0); MEAN CORPUSCULAR HGB 27.1 pg (27.0-31.0); MEAN CORPUSCULAR HGB CONC 29.8 g/dl (33.0-37.0); MEAN PLATELET VOLUME 9.9 fl (9.6-12.3); NUCLEATED RED BLOOD CELL 0.1 % (0.0-0.0); PLATELET COUNT AUTOMATED 240 10*3/uL (130-400); RED CELL DISTRI WIDTH 16.2 % (0-14.5); WHITE BLOOD COUNT 20.6 10*3/uL (4.8-10.8)
[2021-04-20 06:42] LABS: CREATININE 1.71 mg/dL (0.55-1.02); POTASSIUM 3.9 mmol/L (3.5-5.1)
[2021-04-20 09:03] LABS: PLATELET SUFFICIENCY NORMAL (NORMAL); TOTAL CELLS COUNTED 100 #CELLS
[2021-04-20 18:07] LABS: HEMATOCRIT 24.4 % (37.0-47.0); MEAN CELL VOLUME 88.1 fl (81.0-99.0); MEAN CORPUSCULAR HGB 27.4 pg (27.0-31.0); MEAN CORPUSCULAR HGB CONC 31.1 g/dl (33.0-37.0); MEAN PLATELET VOLUME 10.3 fl (9.6-12.3); NUCLEATED RED BLOOD CELL 0.1 % (0.0-0.0); PLATELET COUNT AUTOMATED 218 10*3/uL (130-400); RED BLOOD COUNT 2.77 10*6/uL (4.10-5.10); RED CELL DISTRI WIDTH 16.6 % (0-14.5)
[2021-04-20 18:27] LABS: OVALOCYTES FEW; PLATELET SUFFICIENCY NORMAL (NORMAL); TOTAL CELLS COUNTED 100 #CELLS
[2021-04-21] VITALS: BP 110/60
[2021-04-21 06:33] LABS: HEMATOCRIT 24.2 % (37.0-47.0); MEAN CORPUSCULAR HGB 26.2 pg (27.0-31.0); MEAN CORPUSCULAR HGB CONC 29.8 g/dl (33.0-37.0); MEAN PLATELET VOLUME 10.6 fl (9.6-12.3); NUCLEATED RED BLOOD CELL 0.1 % (0.0-0.0); PLATELET COUNT AUTOMATED 232 10*3/uL (130-400); RED BLOOD COUNT 2.75 10*6/uL (4.10-5.10); RED CELL DISTRI WIDTH 16.8 % (0-14.5); WHITE BLOOD COUNT 16.1 10*3/uL (4.8-10.8)
[2021-04-21 06:34] LABS: CREATININE 2.04 mg/dL (0.55-1.02); POTASSIUM 3.9 mmol/L (3.5-5.1)
[2021-04-21 08:00] VITALS: BP 112/60
[2021-04-21 08:19] LABS: PLATELET SUFFICIENCY NORMAL (NORMAL); TOTAL CELLS COUNTED 100 #CELLS
[2021-04-21 12:00] VITALS: BP 121/70
[2021-04-21 16:00] VITALS: BP 121/70
[2021-04-21 20:00] VITALS: BP 101/52
[2021-04-22] VITALS: BP 117/60
[2021-04-22 06:05] LABS: HEMATOCRIT 23.8 % (37.0-47.0); MEAN CELL VOLUME 88.5 fl (81.0-99.0); MEAN CORPUSCULAR HGB 26.4 pg (27.0-31.0); MEAN CORPUSCULAR HGB CONC 29.8 g/dl (33.0-37.0); MEAN PLATELET VOLUME 10.4 fl (9.6-12.3); NUCLEATED RED BLOOD CELL 0.2 % (0.0-0.0); PLATELET COUNT AUTOMATED 246 10*3/uL (130-400); RED BLOOD COUNT 2.69 10*6/uL (4.10-5.10); RED CELL DISTRI WIDTH 16.8 % (0-14.5); WHITE BLOOD COUNT 13.2 10*3/uL (4.8-10.8)
[2021-04-22 06:25] LABS: ALBUMIN 2.3 gm/dl (3.1-4.5); POTASSIUM 4.2 mmol/L (3.5-5.1)
[2021-04-22 06:29] LABS: CREATININE 2.11 mg/dL (0.55-1.02); TOTAL PROTEIN 5.6 gm/dL (6.4-8.2)
[2021-04-22 07:47] LABS: PLATELET SUFFICIENCY NORMAL (NORMAL); POLYCHROMASIA SLIGHT; TOTAL CELLS COUNTED 100 #CELLS
[2021-04-22 08:00] VITALS: BP 113/51
[2021-04-22 12:00] VITALS: BP 118/55
[2021-04-22 16:00] VITALS: BP 126/66
[2021-04-22 20:00] VITALS: BP 110/73; BP 113/51
[2021-04-23] VITALS: BP 117/52
[2021-04-23 08:00] VITALS: BP 137/68
[2021-04-23 09:34] LABS: BASO % 0.1 % (0.0-1.0); EOS # 0.1 10*3/uL (0.0-0.4); EOS % 0.6 % (1.0-4.0); HEMATOCRIT 27.4 % (37.0-47.0); LYMPH # 0.8 10*3/uL (1.3-4.4); LYMPH % 7.1 % (27.0-41.0); MEAN CELL VOLUME 89.8 fl (81.0-99.0); MEAN CORPUSCULAR HGB 26.2 pg (27.0-31.0); MEAN CORPUSCULAR HGB CONC 29.2 g/dl (33.0-37.0); MEAN PLATELET VOLUME 9.6 fl (9.6-12.3); MONO # 0.6 10*3/uL (0.1-1.0); MONO % 5.3 % (3.0-9.0); NEUT # 9.9 10*3/uL (2.3-7.9); NEUT % 85.9 % (47.0-73.0); NUCLEATED RED BLOOD CELL 0.1 10*3/uL (0.0-0.0); NUCLEATED RED BLOOD CELL 0.5 % (0.0-0.0); PLATELET COUNT AUTOMATED 253 10*3/uL (130-400); RED BLOOD COUNT 3.05 10*6/uL (4.10-5.10); RED CELL DISTRI WIDTH 16.5 % (0-14.5); WHITE BLOOD COUNT 11.6 10*3/uL (4.8-10.8)
[2021-04-23 09:48] LABS: ALBUMIN 2.4 gm/dl (3.1-4.5); CREATININE 1.52 mg/dL (0.55-1.02); POTASSIUM 3.6 mmol/L (3.5-5.1); TOTAL PROTEIN 6.4 gm/dL (6.4-8.2)
[2021-04-23 12:00] VITALS: BP 120/48
[2021-04-23 16:00] VITALS: BP 111/48
[2021-04-23 20:00] VITALS: BP 113/51; BP 135/70
[2021-04-24] VITALS (14 sets, daily range): BP systolic 100–124; BP diastolic 50–70
[2021-04-24 06:09] LABS: ALBUMIN 2.2 gm/dl (3.1-4.5); CREATININE 1.89 mg/dL (0.55-1.02); POTASSIUM 4.1 mmol/L (3.5-5.1); TOTAL PROTEIN 5.5 gm/dL (6.4-8.2)
[2021-04-24 06:20] LABS: HEMATOCRIT 23.4 % (37.0-47.0); MEAN CELL VOLUME 90.7 fl (81.0-99.0); MEAN CORPUSCULAR HGB 26.7 pg (27.0-31.0); MEAN CORPUSCULAR HGB CONC 29.5 g/dl (33.0-37.0); MEAN PLATELET VOLUME 10.2 fl (9.6-12.3); NUCLEATED RED BLOOD CELL 0.3 % (0.0-0.0); PLATELET COUNT AUTOMATED 211 10*3/uL (130-400); RED BLOOD COUNT 2.58 10*6/uL (4.10-5.10); RED CELL DISTRI WIDTH 16.6 % (0-14.5); WHITE BLOOD COUNT 10.2 10*3/uL (4.8-10.8)
[2021-04-24 07:27] LABS: PLATELET SUFFICIENCY NORMAL (NORMAL); TOTAL CELLS COUNTED 100 #CELLS
[2021-04-24 15:51] LABS: HEMATOCRIT 28.4 % (37.0-47.0); MEAN CELL VOLUME 89.3 fl (81.0-99.0); MEAN CORPUSCULAR HGB 27.4 pg (27.0-31.0); MEAN CORPUSCULAR HGB CONC 30.6 g/dl (33.0-37.0); MEAN PLATELET VOLUME 9.9 fl (9.6-12.3); NUCLEATED RED BLOOD CELL 0.3 % (0.0-0.0); PLATELET COUNT AUTOMATED 203 10*3/uL (130-400); RED BLOOD COUNT 3.18 10*6/uL (4.10-5.10); RED CELL DISTRI WIDTH 16.4 % (0-14.5); WHITE BLOOD COUNT 12.1 10*3/uL (4.8-10.8)
[2021-04-24 16:24] LABS: PLATELET SUFFICIENCY NORMAL (NORMAL); TOTAL CELLS COUNTED 100 #CELLS
[2021-04-24 16:25] LABS: BURR CELLS FEW
[2021-04-25] VITALS: BP 121/71
[2021-04-25 06:25] LABS: BASO % 0.2 % (0.0-1.0); EOS # 0.1 10*3/uL (0.0-0.4); EOS % 0.5 % (1.0-4.0); HEMATOCRIT 25.4 % (37.0-47.0); LYMPH # 0.9 10*3/uL (1.3-4.4); LYMPH % 8.7 % (27.0-41.0); MEAN CELL VOLUME 87.6 fl (81.0-99.0); MEAN CORPUSCULAR HGB 27.2 pg (27.0-31.0); MEAN CORPUSCULAR HGB CONC 31.1 g/dl (33.0-37.0); MEAN PLATELET VOLUME 9.8 fl (9.6-12.3); MONO # 0.5 10*3/uL (0.1-1.0); MONO % 4.8 % (3.0-9.0); NEUT # 8.9 10*3/uL (2.3-7.9); NEUT % 84.7 % (47.0-73.0); NUCLEATED RED BLOOD CELL 0.2 % (0.0-0.0); PLATELET COUNT AUTOMATED 200 10*3/uL (130-400); RED CELL DISTRI WIDTH 16.8 % (0-14.5); WHITE BLOOD COUNT 10.5 10*3/uL (4.8-10.8)
[2021-04-25 06:38] LABS: ALBUMIN 2.3 gm/dl (3.1-4.5); CREATININE 1.93 mg/dL (0.55-1.02); POTASSIUM 4.2 mmol/L (3.5-5.1); TOTAL PROTEIN 5.6 gm/dL (6.4-8.2)
[2021-04-25 08:00] VITALS: BP 128/68
[2021-04-25 12:00] VITALS: BP 113/58
[2021-04-25] MEDS ORDERED: MUCUS RELIEF600 MG PO (13:58)
[2021-04-25 16:00] VITALS: BP 113/58
== END 2021-04-25 19:00 | DRG 871 ==
LOC: ED 12:28 → EDHOLD 13:53 → 4E 13:53
PROVIDERS: Emergency Medicine; Family Medicine; Hospitalist; Internal Medicine; Student in an Organized Health Care Education/Training Program; ADMIT Internal Medicine; ATTEND Internal Medicine
PROC: 5A1D70Z Performance of Urinary Filtration, Intermittent, Less than 6 Hours Per Day (ICD-10-PCS; 2021-04-18)
PROC: 5A1D70Z Performance of Urinary Filtration, Intermittent, Less than 6 Hours Per Day (ICD-10-PCS; 2021-04-19)
PROC: 30233N1 Transfusion of Nonautologous Red Blood Cells into Peripheral Vein, Percutaneous Approach (ICD-10-PCS; principal; 2021-04-20)
PROC: 5A1D70Z Performance of Urinary Filtration, Intermittent, Less than 6 Hours Per Day (ICD-10-PCS; 2021-04-22)
DX: A41.9 Sepsis, unspecified organism (principal); J15.212 Pneumonia due to Methicillin resistant Staphylococcus aureus; I21.4 Non-ST elevation (NSTEMI) myocardial infarction; N18.6 End stage renal disease; J96.21 Acute and chronic respiratory failure with hypoxia; E44.0 Moderate protein-calorie malnutrition; C90.00 Multiple myeloma not having achieved remission; I50.32 Chronic diastolic (congestive) heart failure; J98.11 Atelectasis; Z68.1 Body mass index [BMI] 19.9 or less, adult; Z66 Do not resuscitate; Z51.5 Encounter for palliative care; D64.9 Anemia, unspecified; I34.1 Nonrheumatic mitral (valve) prolapse; N28.1 Cyst of kidney, acquired; K86.9 Disease of pancreas, unspecified; I49.1 Atrial premature depolarization; R41.9 Unspecified symptoms and signs involving cognitive functions and awareness; Z20.822 Contact with and (suspected) exposure to COVID-19; R73.9 Hyperglycemia, unspecified; I48.0 Paroxysmal atrial fibrillation; M06.9 Rheumatoid arthritis, unspecified; E03.9 Hypothyroidism, unspecified; Z98.890 Other specified postprocedural states; Z90.710 Acquired absence of both cervix and uterus; Z87.891 Personal history of nicotine dependence; Z79.899 Other long term (current) drug therapy; Z88.8 Allergy status to other drugs, medicaments and biological substances; Z79.1 Long term (current) use of non-steroidal anti-inflammatories (NSAID); Z79.82 Long term (current) use of aspirin; Z79.2 Long term (current) use of antibiotics; I25.2 Old myocardial infarction; Z99.2 Dependence on renal dialysis

== ENCOUNTER 2021-05-19 12:00 | Inpatient (IN) | payer OTHER, MEDICARE ==
[~2021-05-19] VITALS: Ht 170.2 cm; Wt 56.7 kg
[2021-05-19 12:00] VITALS: BP 77/48
[~2021-05-19 12:00] MED LIST changes: +CYCLOBENZAPRINE10 MG PO; +MUCUS RELIEF600 MG PO; +TYLENOL325 M2 PO
== END 2021-05-19 14:49 | DRG 871 ==
LOC: 4E 12:00
PROVIDERS: ADMIT Family Medicine; ATTEND Family Medicine
DX: A41.9 Sepsis, unspecified organism (principal); U07.1 COVID-19; J96.21 Acute and chronic respiratory failure with hypoxia; N18.6 End stage renal disease; Z51.5 Encounter for palliative care; D64.9 Anemia, unspecified